=== PATIENT | male | born 1940 | race Caucasian/White ===

== ENCOUNTER 2017-05-30 12:22 | Observation (INO) | payer MEDICARE, OTHER ==
[2017-05-30] MEDS ORDERED: Aspirin 81 MG Tab.Chew PO ONE (12:54)
[2017-05-30] MEDS ORDERED: Ondansetron 4 MG/2 ML SDV IVPUSH ONE (12:55)
[2017-05-30] MEDS ORDERED: Sodium Chloride 0.9% 1,000 ML IV ONE (13:22)
[2017-05-30 13:38] LABS: CHLORIDE,CL 100 mmol/L (98-110); SODIUM,NA 136 mmol/L (136-146)
--- NOTE | 2017-05-30 14:09 | EDM.PDOC ---
ED HPI GENERAL MEDICAL PROBLEM - General Chief Complaint: Gastrointestinal Problem Stated Complaint: UNRESPONSIVE Time Seen by Provider: 05/30/17 14:09 Source of Information: Reports: Family. Denies: Patient History Limitations: Reports: No Limitations - History of Present Illness INITIAL COMMENTS - FREE TEXT/NARRATIVE: History of present illness: [A 76-year-old male brought in by family secondary to concerns of decreased level of consciousness. Patient able to interact and operate as a normal and patient does have an underlying diagnosis of Parkinson's but he does not seem to be his usual level of functioning. Patient seems to be somewhat decreased in activity and interaction as well as having sporadic bouts of low blood pressure. ] Review of systems: As per history of present illness and below otherwise all systems reviewed and negative. Past medical history: As per history of present illness and as reviewed below otherwise noncontributory. Surgical history: As per history of present illness and as reviewed below otherwise noncontributory. Social history: No reported history of drug or alcohol abuse. Family history: As per history of present illness and as reviewed below otherwise noncontributory. Physical exam: HEENT: Atraumatic, normocephalic, pupils reactive, negative for conjunctival pallor or scleral icterus, mucous membranes moist, throat clear, neck supple, nontender, trachea midline. Lungs: Dim throughout otherwise breath sounds equal bilaterally, chest nontender. Heart: S1S2, regular, negative for clicks, rubs, or JVD. Abdomen: Soft, nondistended, nontender. Negative for masses or hepatosplenomegaly. Negative for costovertebral tenderness. Pelvis: Stable nontender. Genitourinary: Deferred. Rectal: Deferred. Extremities: Atraumatic, negative for cords or calf pain. Neurovascular unremarkable. Neuro: Awake, alert, oriented, somewhat drowsy. Cranial nerves II through XII unremarkable. Cerebellum unremarkable. Motor and sensory unremarkable throughout. Exam nonfocal. Spoke with Dr. Ponce after results were available and orders for inpatient admission for right lower lobe pneumonia. Diagnostics: [CT head, CXR CBC, CMP] Therapeutics: [IV fluid, IV Levaquin] Impression: [Right lower lobe pneumonia] Plan: [Admit] Definitive disposition and diagnosis as appropriate pending reevaluation and review of above. - Related Data Allergies Allergy/AdvReac Type Severity Reaction Status Date / Time No Known Allergies Allergy Verified 05/30/17 12:26 Home Meds: Home Meds Carbidopa/Levodopa/Entacapone [Xofycrzhg-Ojorwlkn-Otkz 200 mg] 1 mg PO DAILY [History] Metoprolol Succinate 50 mg PO DAILY 05/30/17 [History] Past Medical History HEENT History: Reports: None Cardiovascular History: Reports: Hypertension Respiratory History: Reports: None Gastrointestinal History: Reports: None Genitourinary History: Reports: None Musculoskeletal History: Reports: None Neurological History: Reports: Parkinson's Psychiatric History: Reports: None Endocrine/Metabolic History: Reports: None Hematologic History: Reports: None Immunologic History: Reports: None Oncologic (Cancer) History: Reports: None Dermatologic History: Reports: None - Infectious Disease History Infectious Disease History: Reports: Chicken Pox, Measles, Mumps - Past Surgical History Head Surgeries/Procedures: Reports: None HEENT Surgical History: Reports: None Cardiovascular Surgical History: Reports: None Respiratory Surgical History: Reports: None GI Surgical History: Reports: None Male Surgical History: Reports: None Endocrine Surgical History: Reports: None Neurological Surgical History: Reports: None Musculoskeletal Surgical History: Reports: None Oncologic Surgical History: Reports: None Dermatological Surgical History: Reports: None Social & Family History - Family History Family Medical History: Noncontributory - Tobacco Use Smoking Status *Q: Never Smoker - Caffeine Use Caffeine Use: Reports: Coffee - Recreational Drug Use Recreational Drug Use: No ED ROS GENERAL - Review of Systems Review Of Systems: See Below (See history of present illness) ED EXAM, GENERAL - Physical Exam Exam: See Below (See history of present illness) Course - Vital Signs Last Recorded V/S: Last Vital Signs Temp 36.5 C 05/30/17 12:27 Pulse 79 05/30/17 12:27 Resp 14 05/30/17 12:27 BP 127/31 L 05/30/17 12:27 Pulse Ox 94 L 05/30/17 12:27 - Orders/Labs/Meds Orders: Active Orders 24 hr Category Date Time Status EKG Documentation Completion [RC] STAT Care 05/30/17 12:54 Active Chest 2V [CR] Stat Exams 05/30/17 12:54 Ordered AMYLASE [CHEM] Stat Lab 05/30/17 13:05 Received COMPREHENSIVE METABOLIC PN,CMP [CHEM] Stat Lab 05/30/17 13:05 Received LIPASE [CHEM] Stat Lab 05/30/17 13:05 Received TROPONIN I [CHEM] Stat Lab 05/30/17 13:05 Received UA W/MICROSCOPIC [URIN] Stat Lab 05/30/17 12:54 Uncollected Saline Lock Insert [OM.PC] Stat Oth 05/30/17 12:54 Ordered Labs: Laboratory Tests 05/30/17 Range/Units 13:05 WBC 7.87 (4.0-11.0) K/uL RBC 4.27 L (4.50-5.90) M/uL Hgb 13.3 (13.0-17.0) g/dL Hct 37.8 L (38.0-50.0) % MCV 88.5 (80.0-98.0) fL MCH 31.1 (27.0-32.0) pg MCHC 35.2 (31.0-37.0) g/dL RDW Std Deviation 42.7 (28.0-62.0) fl RDW Coeff of Sonya 13 (11.0-15.0) % Plt Count 175 (150-400) K/uL MPV 9.60 (7.40-12.00) fL Neut % (Auto) 88.0 H (48.0-80.0) % Lymph % (Auto) 7.6 L (16.0-40.0) % [place] % (Auto) 4.3 (0.0-15.0) % Eos % (Auto) 0.0 (0.0-7.0) % Baso % (Auto) 0.1 (0.0-1.5) % Neut # (Auto) 6.9 H (1.4-5.7) K/uL Lymph # (Auto) 0.6 (0.6-2.4) K/uL [place] # (Auto) 0.3 (0.0-0.8) K/uL Eos # (Auto) 0.0 (0.0-0.7) K/uL Baso # (Auto) 0.0 (0.0-0.1) K/uL Nucleated RBC % 0.0 /100WBC Nucleated RBCs # 0 K/uL Meds: Medications Discontinued Medications Generic Name Dose Route Start Last Admin Trade Name Freq PRN Reason Stop Dose Admin Aspirin 324 mg 05/30/17 12:54 Aspirin PO 05/30/17 12:55 ONETIME ONE Ondansetron HCl 8 mg 05/30/17 12:55 Zofran IVPUSH 05/30/17 12:56 ONETIME ONE Departure - Departure Time of Disposition: 14:14 Disposition: Admitted As Inpatient 66 Condition: Good Clinical Impression: Pneumonia - Discharge Information Referrals: Mehran Ornelas MD [Primary Care Provider] - - My Orders Last 24 Hours: My Active Orders 05/30/17 12:54 EKG Documentation Completion [RC] STAT Chest 2V [CR] Stat UA W/MICROSCOPIC [URIN] Stat Saline Lock Insert [OM.PC] Stat 05/30/17 13:05 AMYLASE [CHEM] Stat COMPREHENSIVE METABOLIC PN,CMP [CHEM] Stat LIPASE [CHEM] Stat TROPONIN I [CHEM] Stat - Assessment/Plan Last 24 Hours: My Active Orders 05/30/17 12:54 EKG Documentation Completion [RC] STAT Chest 2V [CR] Stat UA W/MICROSCOPIC [URIN] Stat Saline Lock Insert [OM.PC] Stat 05/30/17 13:05 AMYLASE [CHEM] Stat COMPREHENSIVE METABOLIC PN,CMP [CHEM] Stat LIPASE [CHEM] Stat TROPONIN I [CHEM] Stat
[2017-05-30] MEDS ORDERED: Levofloxacin/Dextrose 5%-Water 750 MG in Premix Bag 1 BAG IV ONE (14:13)
--- NOTE | 2017-05-30 16:17 | PCM.HP ---
H&P History of Present Illness - General Date of Service: 05/30/17 Admit Problem/Dx: Admission Diagnosis/Problem Admission Diagnosis/Problem Pneumonia - History of Present Illness Initial Comments - Free Text/Narative: He was seen in the ED today for feeling very weak. He denies cough. His states that his blood pressure was low at home. He was diagnosed with a probable right sided pneumonia by xray when he was in the ER and admission was recommended. no cough no fever no dyspnea - Related Data Allergies/Adverse Reactions: Allergies Allergy/AdvReac Type Severity Reaction Status Date / Time No Known Allergies Allergy Verified 05/30/17 12:26 Home Medications: Home Meds Carbidopa/Levodopa/Entacapone [Ujkqstuvl-Rahodlmg-Qzqe 200 mg] 1 mg PO DAILY [History] Metoprolol Succinate 50 mg PO DAILY 05/30/17 [History] Past Medical History HEENT History: Reports: Cataract Cardiovascular History: Reports: Hypertension Respiratory History: Reports: None Gastrointestinal History: Reports: GERD Genitourinary History: Reports: None Musculoskeletal History: Reports: None Neurological History: Reports: Parkinson's Psychiatric History: Reports: None Endocrine/Metabolic History: Reports: None Hematologic History: Reports: None Immunologic History: Reports: None Oncologic (Cancer) History: Reports: None Dermatologic History: Reports: None - Infectious Disease History Infectious Disease History: Reports: Chicken Pox, Measles, Mumps - Past Surgical History Head Surgeries/Procedures: Reports: None HEENT Surgical History: Reports: Cataract Surgery Cardiovascular Surgical History: Reports: None Respiratory Surgical History: Reports: None GI Surgical History: Reports: None Male Surgical History: Reports: None Endocrine Surgical History: Reports: None Neurological Surgical History: Reports: None Musculoskeletal Surgical History: Reports: None Oncologic Surgical History: Reports: None Dermatological Surgical History: Reports: None Social & Family History - Family History Family Medical History: Noncontributory - Tobacco Use Smoking Status *Q: Never Smoker Second Hand Smoke Exposure: No - Caffeine Use Caffeine Use: Reports: Coffee - Recreational Drug Use Recreational Drug Use: No H&P Review of Systems - Review of Systems: Review Of Systems: See Below General: Denies: Fever, Chills Pulmonary: Denies: Cough, Sputum Cardiovascular: Denies: Chest Pain, Palpitations Gastrointestinal: Reports: Nausea, Vomiting, Other (heart burn noted at home). Denies: Hematemesis, Hematochezia Exam - Exam Exam: See Below - Vital Signs Vital Signs: Last Vital Signs Temp 97.7 F 05/30/17 12:27 Pulse 79 05/30/17 12:27 Resp 14 05/30/17 12:27 BP 127/31 L 05/30/17 12:27 Pulse Ox 94 L 05/30/17 12:27 Weight: 80.6 kg - Exam General: Alert, Cooperative HEENT: Conjunctiva Clear Neck: Supple, Trachea Midline Lungs: Clear to Auscultation, Normal Respiratory Effort Cardiovascular: Regular Rate, Regular Rhythm GI/Abdominal Exam: Soft, Non-Tender Rectal (Males) Exam: Deferred Extremities: No Pedal Edema Psychiatric: Normal Mood. No: Agitated - Patient Data Result Diagrams: 05/30/17 13:05 05/30/17 13:05 *Q Meaningful Use (ADM) - VTE *Q VTE Criteria *Q: - Stroke *Q Stroke Criteria *Q: - AMI *Q AMI Criteria *Q: - Problem List (1) Parkinsons disease SNOMED Code(s): 48044708 ICD Code: G20 - PARKINSON'S DISEASE Status: Acute Current Visit: Yes (2) GERD (gastroesophageal reflux disease) SNOMED Code(s): 783575136 ICD Code: K21.9 - GASTRO-ESOPHAGEAL REFLUX DISEASE WITHOUT ESOPHAGITIS Status: Acute Current Visit: Yes (3) Pneumonia SNOMED Code(s): 057432999 ICD Code: J18.9 - PNEUMONIA, UNSPECIFIED ORGANISM Status: Acute Current Visit: Yes Problem List Initiated/Reviewed/Updated: Yes Orders Last 24hrs: Active Orders 24 hr Category Date Time Status Carbidopa/Levodopa/Entacapone [Cmwisozfd-Kfwlbuqk-Njsl Med 05/31/17 09:00 Ordered 200 mg] 1 mg PO DAILY Metoprolol Succinate [Toprol XL] Med 05/31/17 09:00 Ordered 50 mg PO DAILY Medication Orders Metoprolol Succinate (Toprol Xl) 50 mg PO DAILY [facility] Non-Formulary Medication (Carbidopa/Levodopa/Entacapone [Carbidopa-Levodopa- Enta 200 Mg]) 1 mg PO DAILY [facility] Assessment/Plan Comment:: admit ; see orders. Diego Pandey MD
[2017-05-30] MEDS ORDERED: Acetaminophen 325 MG Tab PO PRN (16:18)
[2017-05-30] MEDS: Pantoprazole 40 MG Tab.CR PO SCH ×2 (17:00→18:50)
[2017-05-30] MEDS: LEVODOPA PO SCH (21:00)
[2017-05-30] MEDS: CARBIDOPA PO SCH (21:00)
[2017-05-30] MEDS: Metoprolol Succinate 50 MG Tab.ER PO SCH (23:12)
[2017-05-31] MEDS: Pantoprazole 40 MG Tab.CR PO SCH ×2 (07:59→17:28)
[2017-05-31] MEDS ORDERED: [UNRECOGNIZED DRUG - OTHER] PO SCH (09:00)
[2017-05-31] MEDS ORDERED: LEVODOPA PO SCH (09:00)
[2017-05-31] MEDS ORDERED: CARBIDOPA PO SCH (09:00)
[2017-05-31] MEDS ORDERED: ENTACAPONE PO SCH (09:00)
[2017-05-31] MEDS: Enoxaparin 40 MG/0.4 ML Syringe SUBCUT SCH (09:42)
[2017-05-31] MEDS: CARBIDOPA PO SCH ×2 (09:42→20:59)
[2017-05-31] MEDS: LEVODOPA PO SCH ×2 (09:42→20:59)
--- NOTE | 2017-05-31 13:27 | PCM.PN ---
- General Info Date of Service: 05/31/17 Subjective Update: He feels better and wants to go home. - Patient Data Vitals - Most Recent: Last Vital Signs Temp 98.0 F 05/31/17 09:00 Pulse 78 05/31/17 09:00 Resp 18 05/31/17 10:15 BP 141/66 H 05/31/17 10:15 Pulse Ox 95 05/31/17 10:15 Weight - Most Recent: 80.6 kg I&O - Last 24 Hours: Intake & Output 05/30/17 05/31/17 05/31/17 22:59 06:59 14:59 Intake Total 150 100 Output Total 400 Balance 150 -300 Lab Results Last 24 Hours: Laboratory Results - last 24 hr 05/30/17 Range/Units 22:30 Urine Color DARK YELLOW Urine Appearance SLT CLOUDY Urine pH 5.0 (5.0-8.0) Ur Specific [place] 1.025 (1.001-1.035) Urine Protein TRACE (NEGATIVE) mg/dL Urine Glucose (UA) NEGATIVE (NEGATIVE) mg/dL Urine Ketones TRACE H (NEGATIVE) mg/dL Urine Occult Blood NEGATIVE (NEGATIVE) Urine Nitrite NEGATIVE (NEGATIVE) Urine Bilirubin SMALL H (NEGATIVE) Urine Ictotest NEGATIVE Urine Urobilinogen 0.2 (<2.0) EU/dL Ur Leukocyte Esterase TRACE (NEGATIVE) Urine RBC 0-3 (0-2/HPF) Urine WBC 6-12 (0-5/HPF) Ur Epithelial Cells OCCASIONAL (NONE-FEW) Ur Renal Epithelial Cell RARE Calcium Oxalate Crystal RARE (NEGATIVE) Amorphous Sediment LIGHT (NEGATIVE) Urine Bacteria FEW (NEGATIVE) Fine Granular Casts 0-2 (NEGATIVE) Med Orders - Current: Current Medications Acetaminophen (Tylenol) 650 mg PO Q4H PRN PRN Reason: Pain (Mild 1-3)/fever Enoxaparin Sodium (Lovenox) 40 mg SUBCUT DAILY [facility] Last Admin: 05/31/17 09:42 Dose: 40 mg Levofloxacin/Dextrose 750 mg/ (Premix) 150 mls @ 100 mls/hr IV DAILY ONE Stop: 05/31/17 16:29 Metoprolol Succinate (Toprol Xl) 50 mg PO BEDTIME [facility] Last Admin: 05/30/17 23:12 Dose: Not Given Pantoprazole Sodium (Protonix) 40 mg PO BIDAC [facility] Last Admin: 05/31/17 07:59 Dose: 40 mg Carbidopa/Levodopa (Er 50-200) 1 each PO BID [facility] Last Admin: 05/31/17 09:42 Dose: 1 each Discontinued Medications Aspirin (Aspirin) 324 mg PO ONETIME ONE Stop: 05/30/17 12:55 Last Admin: 05/30/17 13:25 Dose: 324 mg Sodium Chloride (Normal Saline) 1,000 mls @ 999 mls/hr IV STAT ONE Stop: 05/30/17 14:22 Last Admin: 05/30/17 13:25 Dose: 999 mls/hr Levofloxacin/Dextrose 750 mg/ (Premix) 150 mls @ 100 mls/hr IV ONETIME ONE Stop: 05/30/17 15:42 Last Admin: 05/30/17 14:22 Dose: 100 mls/hr Non-Formulary Medication (Carbidopa/Levodopa/Entacapone [Carbidopa-Levodopa- Enta 200 Mg]) 1 mg PO DAILY [facility] Ondansetron HCl (Zofran) 8 mg IVPUSH ONETIME ONE Stop: 05/30/17 12:56 Last Admin: 05/30/17 13:25 Dose: 8 mg - Exam General: Alert, Cooperative Neck: Supple, Trachea Midline Lungs: Clear to Auscultation (except subtle rales right lateral chest), Normal Respiratory Effort Cardiovascular: Regular Rate, Regular Rhythm Psy/Mental Status: Alert, Normal Affect (ambulating well. ), Normal Mood - Problem List & Annotations (1) Parkinsons disease SNOMED Code(s): 73864640 Code(s): G20 - PARKINSON'S DISEASE Status: Acute Current Visit: Yes (2) GERD (gastroesophageal reflux disease) SNOMED Code(s): 091402143 Code(s): K21.9 - GASTRO-ESOPHAGEAL REFLUX DISEASE WITHOUT ESOPHAGITIS Status: Acute Current Visit: Yes (3) Pneumonia SNOMED Code(s): 708657993 Code(s): J18.9 - PNEUMONIA, UNSPECIFIED ORGANISM Status: Acute Current Visit: Yes (4) UTI (urinary tract infection) SNOMED Code(s): 94915586 Code(s): N39.0 - URINARY TRACT INFECTION, SITE NOT SPECIFIED Status: Acute Current Visit: Yes - Problem List Review Problem List Initiated/Reviewed/Updated: Yes - My Orders Last 24 Hours: My Active Orders 05/30/17 16:18 Oxygen Therapy [RC] PRN Vital Signs [RC] Q4H UA W/O MICROSCOPIC [URIN] Stat Acetaminophen [Tylenol] 650 mg PO Q4H PRN Resuscitation Status Routine 05/30/17 16:30 Pantoprazole [ProTONIX] 40 mg PO BIDAC 05/30/17 21:00 Metoprolol Succinate [Toprol XL] 50 mg PO BEDTIME Patient's Own Medication [Ptom] 1 each PO BID 05/30/17 Dinner Regular Diet [DIET] 05/31/17 09:00 Enoxaparin [Lovenox] 40 mg SUBCUT DAILY 05/31/17 13:23 CULTURE URINE [RM] Stat 05/31/17 15:00 Levofloxacin/Dextrose 5%-Water [Levaquin in D5W 750 MG/150 ML] 750 mg Premix Bag 1 bag IV DAILY 06/01/17 05:11 BASIC METABOLIC PANEL,BMP [CHEM] AM CBC WITH AUTO DIFF [HEME] AM 06/02/17 05:11 BASIC METABOLIC PANEL,BMP [CHEM] AM CBC WITH AUTO DIFF [HEME] AM - Plan Plan:: admit ; see orders. Diego Pandey MD 05/31/2017 urine culture lab in am nurse reports that his oxygen saturation drops to 85% on room air with walking. anticipated discharge tomorrow or Thursday if oxygenation improved. He reportedly had a hypotensive unresponsive episode at home before coming to the emergency room. Diego Pandey MD
[2017-05-31] MEDS ORDERED: Levofloxacin/Dextrose 5%-Water 750 MG in Premix Bag 1 BAG IV ONE (15:00)
[2017-05-31] MEDS: Metoprolol Succinate 50 MG Tab.ER PO SCH (20:59)
[2017-06-01] MEDS: Pantoprazole 40 MG Tab.CR PO SCH (06:49)
[2017-06-01 08:56] VITALS: BP 129/62
[2017-06-01] MEDS: CARBIDOPA PO SCH (09:21)
[2017-06-01] MEDS: Enoxaparin 40 MG/0.4 ML Syringe SUBCUT SCH (09:21)
[2017-06-01] MEDS: LEVODOPA PO SCH (09:21)
--- NOTE | 2017-06-01 11:57 | PCM.DCSUM1 ---
Discharge Summary - Hospital Course Brief History: This 76 claire old male with pmh of HTN and parkinson's presented to the ED with complaints of feeling weak. He denied fever, cough, dyspnea or SOB. noted low blood pressure at home during this time as well. In the ED labwork WNL. UA negative. CXR revealed possible new right lower lobe pneumonia. He was admitted for community acquired pneumonia. PCP, Dr Ornelas. - Discharge Data Discharge Date: 06/01/17 Discharge Disposition: Home, Self-Care 01 Condition: Stable - Patient Instructions Diet: Heart Healthy Diet Activity: As Tolerated Showering/Bathing: May Shower Notify Provider of: Fever, Increased Pain, Swelling and Redness, Drainage, Nausea and/or Vomiting Other/Special Instructions: Monitor blood pressure before taking metoprolol Hold if 90-100/50-60s and take medication is BP is 120/60 or higher. Keep log and bring to follow up appointment. - Discharge Plan Prescriptions/Med Rec: Levofloxacin [Levaquin] 750 mg PO DAILY #5 tablet Sennosides/Docusate Sodium [Senna S Tablet] 1 each PO DAILY PRN #60 tablet PRN Reason: Constipation Home Medications: Home Meds Carbidopa/Levodopa/Entacapone [Mkaslakgq-Xctwyfie-Hdel 200 mg] 1 mg PO DAILY [History] Metoprolol Succinate 50 mg PO DAILY 05/30/17 [History] Levofloxacin [Levaquin] 750 mg PO DAILY #5 tablet 06/01/17 [Rx] Sennosides/Docusate Sodium [Senna S Tablet] 1 each PO DAILY PRN #60 tablet 06/01 [Rx] Patient Handouts: Shortness of Breath, Zxuk-jt-Ovaw, Levofloxacin tablets, Docusate capsules Referrals: Mehran Ornelas MD [Primary Care Provider] - 06/08/17 10:00 am (follow up in 1 week) - Discharge Summary/Plan Comment DC Time >30 min.: No Discharge Summary/Plan Comment: Discharge diagnoses: Community acquired pneumonia, RLL HTN Parkinson's disease Sagar was admitted and treated with Levaquin for CAP. BP was noted to be initially low in the ED and and given some fluids. Since then BP has remained WNL and did elevated to 170 SBP, Metoprolol was restarted and BP has been 120- 130s SBP. He is very eager for discharge today. He was noted to be sating high 80s with ambulation yesterday and was kept another day. Today with ambulation on RA he was 90-94%. He will be discharged home today. He will be sent with Levaquin 750 mg daily for 5 more days and to follow up with Dr. Ornelas. He was asked to keep a log of his BP at home and bring them to his appointment. He is to return to ED or clinic if concerns should arise. He is to continue Metoprolol and Sinemet as previously prescribed. - General Info Date of Service: 06/01/17 Admission Dx/Problem (Free Text: Admission Diagnosis/Problem Admission Diagnosis/Problem Pneumonia Subjective Update: Sitting on edge of bed visiting with family. No complaints, no SOB or cough. Up ambulating well. No dizziness or lightheadedness with ambulation. Functional Status: Reports: Pain Controlled, Tolerating Diet, Ambulating, Urinating - Review of Systems General: Reports: No Symptoms. Denies: Fever Pulmonary: Reports: No Symptoms. Denies: Shortness of Breath, Cough, Sputum Cardiovascular: Reports: No Symptoms. Denies: Chest Pain, Palpitations, Dyspnea on Exertion, Edema, Lightheadedness Gastrointestinal: Reports: No Symptoms. Denies: Abdominal Pain, Nausea, Vomiting Genitourinary: Reports: No Symptoms. Denies: Dysuria, Frequency, Burning Psychiatric: Reports: No Symptoms. Denies: Confusion - Patient Data Vitals - Most Recent: Last Vital Signs Temp 97.4 F 06/01/17 08:00 Pulse 68 06/01/17 08:00 Resp 18 06/01/17 08:00 BP 129/62 06/01/17 08:00 Pulse Ox 95 06/01/17 08:00 Weight - Most Recent: 81.5 kg I&O - Last 24 hours: Intake & Output 05/31/17 06/01/17 06/01/17 22:59 06:59 14:59 Intake Total 1030 900 Output Total 925 Balance 1030 -25 Lab Results - Last 24 hrs: Laboratory Results - last 24 hr 06/01/17 06/01/17 Range/Units 05:45 05:45 WBC 5.60 (4.0-11.0) K/uL RBC 3.58 L (4.50-5.90) M/uL Hgb 10.9 L (13.0-17.0) g/dL Hct 32.1 L (38.0-50.0) % MCV 89.7 (80.0-98.0) fL MCH 30.4 (27.0-32.0) pg MCHC 34.0 (31.0-37.0) g/dL RDW Std Deviation 42.6 (28.0-62.0) fl RDW Coeff of Sonya 13 (11.0-15.0) % Plt Count 172 (150-400) K/uL MPV 9.30 (7.40-12.00) fL Neut % (Auto) 65.3 (48.0-80.0) % Lymph % (Auto) 25.9 (16.0-40.0) % [place] % (Auto) 7.3 (0.0-15.0) % Eos % (Auto) 1.3 (0.0-7.0) % Baso % (Auto) 0.2 (0.0-1.5) % Neut # (Auto) 3.7 (1.4-5.7) K/uL Lymph # (Auto) 1.5 (0.6-2.4) K/uL [place] # (Auto) 0.4 (0.0-0.8) K/uL Eos # (Auto) 0.1 (0.0-0.7) K/uL Baso # (Auto) 0.0 (0.0-0.1) K/uL Nucleated RBC % 0.0 /100WBC Nucleated RBCs # 0 K/uL Sodium 134 L (136-146) mmol/L Potassium 4.3 (3.5-5.1) mmol/L Chloride 102 (98-110) mmol/L Carbon Dioxide 22 (21-31) mmol/L BUN 26 H (6.0-23.0) mg/dL Creatinine 1.5 (0.6-1.5) mg/dL Est Cr Clr Drug Dosing 45.99 mL/min Estimated GFR (MDRD) 45.5 ml/min Glucose 92 (60-110) mg/dL Calcium 8.9 (8.8-10.8) mg/dL Med Orders - Current: Current Medications Acetaminophen (Tylenol) 650 mg PO Q4H PRN PRN Reason: Pain (Mild 1-3)/fever Enoxaparin Sodium (Lovenox) 40 mg SUBCUT DAILY [facility] Last Admin: 06/01/17 09:21 Dose: 40 mg Levofloxacin/Dextrose 750 mg/ (Premix) 150 mls @ 100 mls/hr IV Q48H [facility] Metoprolol Succinate (Toprol Xl) 50 mg PO BEDTIME [facility] Last Admin: 05/31/17 20:59 Dose: 50 mg Pantoprazole Sodium (Protonix) 40 mg PO BIDAC [facility] Last Admin: 06/01/17 06:49 Dose: 40 mg Carbidopa/Levodopa (Er 50-200) 1 each PO BID [facility] Last Admin: 06/01/17 09:21 Dose: 1 each Discontinued Medications Aspirin (Aspirin) 324 mg PO ONETIME ONE Stop: 05/30/17 12:55 Last Admin: 05/30/17 13:25 Dose: 324 mg Sodium Chloride (Normal Saline) 1,000 mls @ 999 mls/hr IV STAT ONE Stop: 05/30/17 14:22 Last Admin: 05/30/17 13:25 Dose: 999 mls/hr Levofloxacin/Dextrose 750 mg/ (Premix) 150 mls @ 100 mls/hr IV ONETIME ONE Stop: 05/30/17 15:42 Last Admin: 05/30/17 14:22 Dose: 100 mls/hr Levofloxacin/Dextrose 750 mg/ (Premix) 150 mls @ 100 mls/hr IV DAILY ONE Stop: 05/31/17 16:29 Last Admin: 05/31/17 15:45 Dose: 100 mls/hr Levofloxacin/Dextrose 750 mg/ (Premix) 150 mls @ 100 mls/hr IV Q24H [facility] Non-Formulary Medication (Carbidopa/Levodopa/Entacapone [Carbidopa-Levodopa- Enta 200 Mg]) 1 mg PO DAILY [facility] Ondansetron HCl (Zofran) 8 mg IVPUSH ONETIME ONE Stop: 05/30/17 12:56 Last Admin: 05/30/17 13:25 Dose: 8 mg - Exam Quality Assessment: Reports: DVT Prophylaxis. Denies: Supplemental Oxygen General: Reports: Alert, Oriented, Cooperative Neck: Reports: Supple Lungs: Reports: Normal Respiratory Effort, Rales (fine rales to R LL). Denies: Wheezing Cardiovascular: Reports: Regular Rate, Regular Rhythm, No Murmurs Extremities: Normal Inspection, Normal Range of Motion, Non-Tender, No Pedal Edema, Normal Capillary Refill Neurological: Reports: No New Focal Deficit Psy/Mental Status: Reports: Alert, Normal Affect, Normal Mood *Q Meaningful Use (DIS) - VTE *Q VTE Criteria *Q: - Stroke *Q Stroke Criteria *Q: - AMI *Q AMI Criteria *Q:
--- NOTE | 2017-06-01 13:28 | CT ---
EXAM DATE: 05/30/17 PATIENT'S AGE: 76 Patient: ANA LEE Facility: [facility], [place], [place] : 1940 Study: CT Head [id number] 1:47:41 PM Ordering Physician: ADALGISA Final Report: INDICATION: Dizziness. Technique: Noncontrast head CT scan. Comparison: No comparison Studies are available. Findings: Axial noncontrast images through the brain parenchyma demonstrates no acute intracranial hemorrhage or mass. No midline shift. No abnormal extra-axial air or fluid collections. There is mild mucosal thickening of the left maxillary sinus. Mucosal thickening in the ethmoid air cells. Remainder of the paranasal sinuses, mastoid air cells skull scalp appear unremarkable. Impression: 1. No acute intracranial hemorrhage or mass. Please note that all CT scans at this facility use dose modulation, iterative reconstruction, and/or weight-based dosing when appropriate to reduce radiation dose to as low as reasonably achievable. Dictated by Zoë Canales MD @ May 30 2017 1:57PM (Electronic Signature) Report Signed by Proxy. MTDD
--- NOTE | 2017-06-01 13:29 | CR ---
EXAM DATE: 05/30/17 PATIENT'S AGE: 76 Patient: ANA LEE Facility: [place], [place] Site . Site : 1940 Study: XRay Chest [id number] 1:49:55 PM Ordering Physician: Doctor Hayes Final Report: HISTORY: Shortness of breath and unresponsive. Findings: Two views of the chest or provided. Comparison is made to previous study dated 11/05/2015. There is new patchy opacity seen at the right lung base suspicious for pneumonia. The upper portion of the right lung and left lung are clear. There is no evidence for pneumothorax. Cardiac silhouette size is within normal limits. Impression: Evidence for new possible pneumonia in the right lower lung. Dictated by Mani Eng MD @ May 30 2017 2:01PM (Electronic Signature) Report Signed by Proxy. LISBETH
[2017-06-01] MEDS ORDERED: Levofloxacin/Dextrose 5%-Water 750 MG in Premix Bag 1 BAG IV SCH (15:00)
[2017-06-03] MEDS ORDERED: Levofloxacin/Dextrose 5%-Water 750 MG in Premix Bag 1 BAG IV SCH (15:00)
== END 2017-06-01 12:48 | disposition home or self-care (01) ==
LOC: MW.ED 12:22 → INTOOBSV 14:17 → MW.MS 14:17
PROVIDERS: ADMIT Family Medicine; ATTEND Family Medicine
DX: J18.9 Pneumonia, unspecified organism (principal); I10 Essential (primary) hypertension; G20 Parkinson's disease; K21.9 Gastro-esophageal reflux disease without esophagitis; N39.0 Urinary tract infection, site not specified; Z79.899 Other long term (current) drug therapy; Z98.49 Cataract extraction status, unspecified eye; Z98.890 Other specified postprocedural states
CPT/HCPCS: 36415; 70450; 71020; 80048; 80053; 81001; 82150; 83690; 84484; 85025; 87086; 93005; 96361; 96365; 96375; 99285; A9270; J1650; J1956; J2405; J7040; 96366; 96372; G0378

== ENCOUNTER 2017-11-20 10:41 | Emergency (ER) | payer MEDICARE, OTHER ==
--- NOTE | 2017-11-20 10:48 | EDM.PDOC ---
ED HPI GENERAL MEDICAL PROBLEM - General Chief Complaint: Syncope Stated Complaint: SYNCOPE Time Seen by Provider: 11/20/17 10:47 Source of Information: Reports: Patient, Provider, RN - History of Present Illness INITIAL COMMENTS - FREE TEXT/NARRATIVE: HISTORY AND PHYSICAL: History of present illness: [Patient was over at Dr. Ornelas's office today getting as ears flushed essentially a cerumen removal]: Getting his ear flushed with water apparently he did have essentially a vasovagal response he was sent over here for workup. He arrives by wheelchair alert interactive talking in full sentences no motor weakness no apparent distress whatsoever he transfers from the wheelchair to the bed on his own accord Denies fever nausea vomiting diarrhea constipation chest pain shortness breath headache dizziness palpitation no bowel or urine symptoms Review of systems: As per history of present illness and below otherwise all systems reviewed and negative. Past medical history: As per history of present illness and as reviewed below otherwise noncontributory. Surgical history: As per history of present illness and as reviewed below otherwise noncontributory. Social history: No reported history of drug or alcohol abuse. Family history: As per history of present illness and as reviewed below otherwise noncontributory. Physical exam: HEENT: Atraumatic, normocephalic, pupils reactive, negative for conjunctival pallor or scleral icterus, mucous membranes moist, throat clear, neck supple, nontender, trachea midline. Lungs: Clear to auscultation, breath sounds equal bilaterally, chest nontender. Heart: S1S2, regular, negative for clicks, rubs, or JVD. Abdomen: Soft, nondistended, nontender. Negative for masses or hepatosplenomegaly. Negative for costovertebral tenderness. Pelvis: Stable nontender. Genitourinary: Deferred. Rectal: Deferred. Extremities: Atraumatic, negative for cords or calf pain. Neurovascular unremarkable. Neuro: Awake, alert, oriented. Cranial nerves II through XII unremarkable. Cerebellum unremarkable. Motor and sensory unremarkable throughout. Exam nonfocal. Diagnostics: [CBC CMP troponin UA Orthostatic vitals EKG Chest [address] no contrast ] Therapeutics: [] Impression: [ vasovagal reaction ] Definitive disposition and diagnosis as appropriate pending reevaluation and review of above. - Related Data Allergies Allergy/AdvReac Type Severity Reaction Status Date / Time No Known Allergies Allergy Verified 11/20/17 10:45 Home Meds: Home Meds Carbidopa/Levodopa/Entacapone [Ywnhexsmh-Jnianqzr-Bxue 200 mg] 1 mg PO DAILY [History] Metoprolol Succinate 50 mg PO DAILY 05/30/17 [History] Past Medical History HEENT History: Reports: Cataract Cardiovascular History: Reports: Hypertension Respiratory History: Reports: None Gastrointestinal History: Reports: GERD Genitourinary History: Reports: None Musculoskeletal History: Reports: None Neurological History: Reports: Parkinson's Psychiatric History: Reports: None Endocrine/Metabolic History: Reports: None Hematologic History: Reports: None Immunologic History: Reports: None Oncologic (Cancer) History: Reports: None Dermatologic History: Reports: None - Infectious Disease History Infectious Disease History: Reports: Chicken Pox, Measles, Mumps - Past Surgical History Head Surgeries/Procedures: Reports: None HEENT Surgical History: Reports: Cataract Surgery Cardiovascular Surgical History: Reports: None Respiratory Surgical History: Reports: None GI Surgical History: Reports: None Male Surgical History: Reports: None Endocrine Surgical History: Reports: None Neurological Surgical History: Reports: None Musculoskeletal Surgical History: Reports: None Oncologic Surgical History: Reports: None Dermatological Surgical History: Reports: None Social & Family History - Family History Family Medical History: Noncontributory - Tobacco Use Smoking Status *Q: Never Smoker Second Hand Smoke Exposure: No - Caffeine Use Caffeine Use: Reports: Coffee - Recreational Drug Use Recreational Drug Use: No ED ROS GENERAL - Review of Systems Review Of Systems: ROS reveals no pertinent complaints other than HPI. ED EXAM, GENERAL - Physical Exam Exam: See Below Course - Vital Signs Last Recorded V/S: Last Vital Signs Temp 97.7 F 11/20/17 10:46 Pulse 68 11/20/17 12:06 Resp 18 11/20/17 12:06 BP 176/81 H 11/20/17 12:06 Pulse Ox 98 11/20/17 12:06 Orthostatic Blood Pressure [ 149/76 Standing] Orthostatic Blood Pressure [ 155/64 Sitting] Orthostatic Blood Pressure [ 146/74 Supine] - Orders/Labs/Meds Orders: Active Orders 24 hr Category Date Time Status EKG Documentation Completion [RC] STAT Care 11/20/17 10:44 Active Orthostatic Vital Signs [RC] ASDIRECTED Care 11/20/17 10:46 Active UA W/MICROSCOPIC [URIN] Stat Lab 11/20/17 11:00 Ordered Labs: Laboratory Tests 11/20/17 11/20/17 11/20/17 Range/Units 11:00 11:10 11:10 WBC 7.23 (4.0-11.0) K/uL RBC 4.19 L (4.50-5.90) M/uL Hgb 12.9 L (13.0-17.0) g/dL Hct 37.6 L (38.0-50.0) % MCV 89.7 (80.0-98.0) fL MCH 30.8 (27.0-32.0) pg MCHC 34.3 (31.0-37.0) g/dL RDW Std Deviation 42.3 (28.0-62.0) fl RDW Coeff of Sonya 13 (11.0-15.0) % Plt Count 191 (150-400) K/uL MPV 9.50 (7.40-12.00) fL Neut % (Auto) 77.3 (48.0-80.0) % Lymph % (Auto) 17.2 (16.0-40.0) % Stephenson % (Auto) 4.8 (0.0-15.0) % Eos % (Auto) 0.6 (0.0-7.0) % Baso % (Auto) 0.1 (0.0-1.5) % Neut # (Auto) 5.6 (1.4-5.7) K/uL Lymph # (Auto) 1.2 (0.6-2.4) K/uL Stephenson # (Auto) 0.4 (0.0-0.8) K/uL Eos # (Auto) 0.0 (0.0-0.7) K/uL Baso # (Auto) 0.0 (0.0-0.1) K/uL Nucleated RBC % 0.0 /100WBC Nucleated RBCs # 0 K/uL Sodium 135 L (136-148) mmol/L Potassium 4.8 (3.5-5.1) mmol/L Chloride 101 (98-107) mmol/L Carbon Dioxide 28.2 (21.0-32.0) mmol/L BUN 24 H (7.0-18.0) mg/dL Creatinine 1.4 H (0.8-1.3) mg/dL Est Cr Clr Drug Dosing 48.50 mL/min Estimated GFR (MDRD) 49.1 ml/min Glucose 121 H (74-106) mg/dL Calcium 9.4 (8.5-10.1) mg/dL Total Bilirubin 0.5 (0.2-1.0) mg/dL AST 12 L (15-37) IU/L ALT 4 L (14-63) IU/L Alkaline Phosphatase 54 (46-116) U/L Troponin I < 0.050 (0.000-0.056) ng/mL Total Protein 8.9 H (6.4-8.2) g/dL Albumin 3.3 L (3.4-5.0) g/dL Globulin 5.6 H (2.0-3.5) g/dL Albumin/Globulin Ratio 0.6 L (1.3-2.8) Urine Color YELLOW Urine Appearance CLEAR Urine pH 6.0 (5.0-8.0) Ur Specific Black 1.020 (1.001-1.035) Urine Protein NEGATIVE (NEGATIVE) mg/dL Urine Glucose (UA) NEGATIVE (NEGATIVE) mg/dL Urine Ketones NEGATIVE (NEGATIVE) mg/dL Urine Occult Blood NEGATIVE (NEGATIVE) Urine Nitrite NEGATIVE (NEGATIVE) Urine Bilirubin NEGATIVE (NEGATIVE) Urine Urobilinogen 0.2 (<2.0) EU/dL Ur Leukocyte Esterase NEGATIVE (NEGATIVE) Urine RBC 0-2 (0-2/HPF) Urine WBC 0-2 (0-5/HPF) Ur Epithelial Cells RARE (NONE-FEW) Urine Bacteria RARE (NEGATIVE) Departure - Departure Time of Disposition: 12:36 Disposition: Home, Self-Care 01 Condition: Good Clinical Impression: Vasovagal reaction - Discharge Information Forms: ED Department Discharge Additional Instructions: The following information is given to patients seen in the emergency department who are being discharged to home. This information is to outline your options for follow-up care. We provide all patients seen in our emergency department with a follow-up referral. The need for follow-up, as well as the timing and circumstances, are variable depending upon the specifics of your emergency department visit. If you don't have a primary care physician on staff, we will provide you with a referral. We always advise you to contact your personal physician following an emergency department visit to inform them of the circumstance of the visit and for follow-up with them and/or the need for any referrals to a consulting specialist. The emergency department will also refer you to a specialist when appropriate. This referral assures that you have the opportunity for follow-up care with a specialist. All of these measure are taken in an effort to provide you with optimal care, which includes your follow-up. Under all circumstances we always encourage you to contact your private physician who remains a resource for coordinating your care. When calling for follow-up care, please make the office aware that this follow-up is from your recent emergency room visit. If for any reason you are refused follow-up, please contact the [facility] emergency department at and asked to speak to the emergency department charge nurse. - My Orders Last 24 Hours: My Active Orders 11/20/17 10:44 EKG Documentation Completion [RC] STAT 11/20/17 10:46 Orthostatic Vital Signs [RC] ASDIRECTED 11/20/17 11:00 UA W/MICROSCOPIC [URIN] Stat - Assessment/Plan Last 24 Hours: My Active Orders 11/20/17 10:44 EKG Documentation Completion [RC] STAT 11/20/17 10:46 Orthostatic Vital Signs [RC] ASDIRECTED 11/20/17 11:00 UA W/MICROSCOPIC [URIN] Stat
[2017-11-20 11:47] LABS: CHLORIDE,CL 101 mmol/L (98-107); SODIUM,NA 135 mmol/L (136-148)
--- NOTE | 2017-11-20 12:08 | CR ---
EXAMINATION: PA chest radiograph. HISTORY: Syncope. FINDINGS: The trachea is midline. Dextropositioning of the heart. The cardiomediastinal silhouette is within no rmal limits. No pulmonary infiltrates, effusions or pneumothorax. Mild chronic interstitial prominenc e. Osseous structures appear unremarkable. IMPRESSION: Chronic interstitial prominence and likely scarring without an acute cardiopulmonary finding.
--- NOTE | 2017-11-20 12:29 | CT ---
EXAMINATION: Non contrast CT head. Coronal and sagittal reformats. HISTORY: Syncope FINDINGS: No evidence of intra or extra axial hemorrhage, mass, midline shift, hydrocephalus or edema. Modera te periventricular and subcortical white matter hypodensities noted. No hypoattenuation changes in the major vascular territories to suggest acute infarct. No abnormal intracranial calcifications are detected. No evidence of substantial vascular calcificat ions. Moderate leftward deviation of the nasal septum. Paranasal sinuses and mastoid air cells are well aerated without substantial findings. Orbits and gl obes are symmetric. Pituitary fossa appears unremarkable. Calvarium is intact. No evidence of skull fracture. IMPRESSION: 1. No acute intracranial findings. 2. Moderate small vessel ischemic changes.
[2017-11-20 14:00] VITALS: BP 131/69
== END 2017-11-20 13:14 | disposition home or self-care (01) ==
LOC: MW.ED 10:41
DX: R55 Syncope and collapse (principal); I10 Essential (primary) hypertension; Z79.899 Other long term (current) drug therapy
CPT/HCPCS: 36415; 70450; 70450-26; 71045; 71045-26; 80053; 81001; 84484; 85025; 99285-25

== ENCOUNTER 2017-12-23 12:18 | Emergency (ER) | payer MEDICARE, OTHER ==
[2017-12-23] MEDS ORDERED: Sodium Chloride 0.9% 1,000 ML IV ONE (12:20)
--- NOTE | 2017-12-23 12:41 | EDM.PDOC ---
ED HPI GENERAL MEDICAL PROBLEM - General Chief Complaint: General Stated Complaint: UNK Time Seen by Provider: 12/23/17 12:24 Source of Information: Reports: Patient History Limitations: Reports: No Limitations - History of Present Illness INITIAL COMMENTS - FREE TEXT/NARRATIVE: HISTORY AND PHYSICAL: History of present illness: Patient is a 77-year-old male who is brought to the emergency room today with complaints of diaphoresis, syncope and feeling unwell. Patient was on his way home from [facility], as he was picking up medications for treatment of newly diagnosed shingles. While at [facility] the patient had passed out. Daughter was able to get him into the vehicle stated to "go home". Patient took a drink of water and was unable to swallow and daughter noted he was drooling out the side of his mouth. At this point she decided he need to bee seen in the emergency department. They noted EMS in the parking lot/ambulance bay, and requested assistance bringing the patient into the emergency room as he was too weak to get out of the car. Upon arrival the patient's blood pressure was 70's/30's and he did appear pale and diaphoretic. He denies any fever, chills, chest pain, SOB, headache or change in vision. Denies any abdominal pain, nausea, vomiting, diarrhea or constipation. Patient has a past medical history of pneumonia, Parkinson's disease, GERD and UTI. Review of systems: As per history of present illness and below otherwise all systems reviewed and negative. Past medical history: As per history of present illness and as reviewed below otherwise noncontributory. Surgical history: As per history of present illness and as reviewed below otherwise noncontributory. Social history: No reported history of drug or alcohol abuse. Family history: As per history of present illness and as reviewed below otherwise noncontributory. Physical exam: General: Well developed and well nourished 77 year old male. Alert but slow to respond. Nontoxic appearing and in no acute distress. HEENT: Atraumatic, normocephalic, pupils equal and reactive bilaterally, negative for conjunctival pallor or scleral icterus, mucous membranes moist, throat clear, neck supple, nontender, trachea midline. No drooling or trismus noted. No meningeal signs Lungs: Clear to auscultation, breath sounds equal bilaterally, chest nontender. Heart: S1S2, regular rate and rhythm without overt murmur Abdomen: Soft, nondistended, nontender. Negative for masses or hepatosplenomegaly. Negative for costovertebral tenderness. Pelvis: Stable nontender. Genitourinary: Deferred. Rectal: Deferred. Skin: Shingles patterned rash noted to left side of torso; does not cross the midline. Otherwise skin is intact, warm, dry. No lesions or rashes noted. Extremities: Atraumatic, moves all extremities per self, negative for cords or calf pain. Neurovascular unremarkable. Neuro: Awake, alert, oriented. Cranial nerves II through XII unremarkable. Cerebellum unremarkable. Motor and sensory unremarkable throughout. Exam nonfocal. Notes: Blood sugar upon arrival is 136. EKG shows a sinus rhythm with rate of 59; reviewed by myself and Dr Cunha. After starting the IV fluid bous; BP did return to normal limits. Dr Ornelas (his primary care provider) briefly stopped down to talk with patient and family. Patient states he has chronic back pain since 2009. States over the past 3 months he has had intermittent episodes of syncope which has been shared with his primary care provider, Dr. Ornelas. Head CT shows chronic age related changes, no acute intracranial process identified. Chest x-ray shows chronic interstitial prominence without acute findings. Labs show mild dehydration. Vital signs remain stable. This was shared with the patient. He is adamant that he would like to be discharged to home. Risks vs benefits were discussed with patient and daughter at bedside. He is declining admission. He is aware of the risks of being discharged to home. Both patient and daughter voice understanding and are agreeable to follow-up with his primary care provider in the next 1-2 days. Daughter states that she will remain with him over the next 24 hours and return to the emergency room if his symptoms return, worsen or new symptoms develope. Diagnostics: CBC, CMP, UA, troponin, head CT, chest x-ray, EKG Therapeutics: IV fluids Impression: Dehydration Syncope Plan: 1. Please increase your oral fluids over the next 24 hours. 2. Follow-up with your primary care provider in the next 1-2 days. Return to the ED as needed and as discussed. Definitive disposition and diagnosis as appropriate pending reevaluation and review of above. Onset: Today Duration: Minutes: shoulder blades Pain Score (Numeric/FACES): 8 - Related Data Allergies Allergy/AdvReac Type Severity Reaction Status Date / Time No Known Allergies Allergy Verified 12/23/17 12:48 Home Meds: Home Meds Carbidopa/Levodopa/Entacapone [Carbidopa-Levodopa 200 mg-Enta] 50 mg PO BID [History] Metoprolol Succinate 50 mg PO DAILY 05/30/17 [History] Albuterol [Ventolin HFA] 108 gm INH Q4HR PRN 12/23/17 [History] Finasteride [Proscar] 5 mg PO DAILY 12/23/17 [History] Gabapentin [Neurontin] 300 mg PO TID 12/23/17 [History] Nitroglycerin [Nitrostat] 0.4 mg SL ASDIRECTED PRN 12/23/17 [History] valACYclovir HCl [valACYclovir] 1 g PO TID 12/23/17 [History] Past Medical History HEENT History: Reports: Cataract Cardiovascular History: Reports: Hypertension Respiratory History: Reports: None Gastrointestinal History: Reports: GERD Genitourinary History: Reports: None Musculoskeletal History: Reports: None Neurological History: Reports: Parkinson's Psychiatric History: Reports: None Endocrine/Metabolic History: Reports: None Hematologic History: Reports: None Immunologic History: Reports: None Oncologic (Cancer) History: Reports: None Dermatologic History: Reports: None - Infectious Disease History Infectious Disease History: Reports: Chicken Pox, Measles, Mumps - Past Surgical History Head Surgeries/Procedures: Reports: None HEENT Surgical History: Reports: Cataract Surgery Cardiovascular Surgical History: Reports: None Respiratory Surgical History: Reports: None GI Surgical History: Reports: None Male Surgical History: Reports: None Endocrine Surgical History: Reports: None Neurological Surgical History: Reports: None Musculoskeletal Surgical History: Reports: None Oncologic Surgical History: Reports: None Dermatological Surgical History: Reports: None Social & Family History - Family History Family Medical History: Noncontributory - Caffeine Use Caffeine Use: Reports: Coffee ED ROS GENERAL - Review of Systems Review Of Systems: ROS reveals no pertinent complaints other than HPI. ED EXAM, GENERAL - Physical Exam Exam: See Below (See dictation) Course - Vital Signs Last Recorded V/S: Last Vital Signs Temp 96.9 F 12/23/17 12:43 Pulse 60 12/23/17 12:43 Resp 16 12/23/17 12:43 BP 70/34 L 12/23/17 12:43 Pulse Ox 98 12/23/17 12:43 - Orders/Labs/Meds Orders: Active Orders 24 hr Category Date Time Status EKG Documentation Completion [RC] STAT Care 12/23/17 12:20 Active Head wo Cont [CT] Stat Exams 12/23/17 12:34 Taken UA W/MICROSCOPIC [URIN] Stat Lab 12/23/17 14:29 Ordered Labs: Laboratory Tests 12/23/17 12/23/17 12/23/17 Range/Units 12:20 12:20 12:36 WBC 5.79 (4.0-11.0) K/uL RBC 3.96 L (4.50-5.90) M/uL Hgb 12.2 L (13.0-17.0) g/dL Hct 34.5 L (38.0-50.0) % MCV 87.1 (80.0-98.0) fL MCH 30.8 (27.0-32.0) pg MCHC 35.4 (31.0-37.0) g/dL RDW Std Deviation 41.1 (28.0-62.0) fl RDW Coeff of Sonya 13 (11.0-15.0) % Plt Count 210 (150-400) K/uL MPV 9.40 (7.40-12.00) fL Neut % (Auto) 59.9 (48.0-80.0) % Lymph % (Auto) 31.3 (16.0-40.0) % [place] % (Auto) 8.1 (0.0-15.0) % Eos % (Auto) 0.5 (0.0-7.0) % Baso % (Auto) 0.2 (0.0-1.5) % Neut # (Auto) 3.5 (1.4-5.7) K/uL Lymph # (Auto) 1.8 (0.6-2.4) K/uL [place] # (Auto) 0.5 (0.0-0.8) K/uL Eos # (Auto) 0.0 (0.0-0.7) K/uL Baso # (Auto) 0.0 (0.0-0.1) K/uL Nucleated RBC % 0.0 /100WBC Nucleated RBCs # 0 K/uL Sodium 132 L (136-148) mmol/L Potassium 3.9 (3.5-5.1) mmol/L Chloride 97 L (98-107) mmol/L Carbon Dioxide 24.7 (21.0-32.0) mmol/L BUN 19 H (7.0-18.0) mg/dL Creatinine 1.4 H (0.8-1.3) mg/dL Est Cr Clr Drug Dosing 48.50 mL/min Estimated GFR (MDRD) 49.1 ml/min Glucose 145 H (74-106) mg/dL POC Glucose 136 H (60-110) mg/dL Calcium 9.0 (8.5-10.1) mg/dL Total Bilirubin 0.6 (0.2-1.0) mg/dL AST 18 (15-37) IU/L ALT 6 L (14-63) IU/L Alkaline Phosphatase 52 (46-116) U/L Troponin I < 0.050 (0.000-0.056) ng/mL Total Protein 8.3 H (6.4-8.2) g/dL Albumin 3.3 L (3.4-5.0) g/dL Globulin 5.0 H (2.0-3.5) g/dL Albumin/Globulin Ratio 0.7 L (1.3-2.8) Urine Color Urine Appearance Urine pH (5.0-8.0) Ur Specific [place] (1.001-1.035) Urine Protein (NEGATIVE) mg/dL Urine Glucose (UA) (NEGATIVE) mg/dL Urine Ketones (NEGATIVE) mg/dL Urine Occult Blood (NEGATIVE) Urine Nitrite (NEGATIVE) Urine Bilirubin (NEGATIVE) Urine Urobilinogen (<2.0) EU/dL Ur Leukocyte Esterase (NEGATIVE) Urine RBC (0-2/HPF) Urine WBC (0-5/HPF) Ur Epithelial Cells (NONE-FEW) Amorphous Sediment (NEGATIVE) Urine Bacteria (NEGATIVE) 12/23/17 Range/Units 14:29 WBC (4.0-11.0) K/uL RBC (4.50-5.90) M/uL Hgb (13.0-17.0) g/dL Hct (38.0-50.0) % MCV (80.0-98.0) fL MCH (27.0-32.0) pg MCHC (31.0-37.0) g/dL RDW Std Deviation (28.0-62.0) fl RDW Coeff of Sonya (11.0-15.0) % Plt Count (150-400) K/uL MPV (7.40-12.00) fL Neut % (Auto) (48.0-80.0) % Lymph % (Auto) (16.0-40.0) % [place] % (Auto) (0.0-15.0) % Eos % (Auto) (0.0-7.0) % Baso % (Auto) (0.0-1.5) % Neut # (Auto) (1.4-5.7) K/uL Lymph # (Auto) (0.6-2.4) K/uL [place] # (Auto) (0.0-0.8) K/uL Eos # (Auto) (0.0-0.7) K/uL Baso # (Auto) (0.0-0.1) K/uL Nucleated RBC % /100WBC Nucleated RBCs # K/uL Sodium (136-148) mmol/L Potassium (3.5-5.1) mmol/L Chloride (98-107) mmol/L Carbon Dioxide (21.0-32.0) mmol/L BUN (7.0-18.0) mg/dL Creatinine (0.8-1.3) mg/dL Est Cr Clr Drug Dosing mL/min Estimated GFR (MDRD) ml/min Glucose (74-106) mg/dL POC Glucose (60-110) mg/dL Calcium (8.5-10.1) mg/dL Total Bilirubin (0.2-1.0) mg/dL AST (15-37) IU/L ALT (14-63) IU/L Alkaline Phosphatase (46-116) U/L Troponin I (0.000-0.056) ng/mL Total Protein (6.4-8.2) g/dL Albumin (3.4-5.0) g/dL Globulin (2.0-3.5) g/dL Albumin/Globulin Ratio (1.3-2.8) Urine Color YELLOW Urine Appearance CLEAR Urine pH 6.5 (5.0-8.0) Ur Specific [place] 1.010 (1.001-1.035) Urine Protein NEGATIVE (NEGATIVE) mg/dL Urine Glucose (UA) NEGATIVE (NEGATIVE) mg/dL Urine Ketones NEGATIVE (NEGATIVE) mg/dL Urine Occult Blood NEGATIVE (NEGATIVE) Urine Nitrite NEGATIVE (NEGATIVE) Urine Bilirubin NEGATIVE (NEGATIVE) Urine Urobilinogen 0.2 (<2.0) EU/dL Ur Leukocyte Esterase NEGATIVE (NEGATIVE) Urine RBC NONE SEEN (0-2/HPF) Urine WBC 0-2 (0-5/HPF) Ur Epithelial Cells FEW (NONE-FEW) Amorphous Sediment RARE (NEGATIVE) Urine Bacteria FEW (NEGATIVE) Meds: Medications Discontinued Medications Generic Name Dose Route Start Last Admin Trade Name Freq PRN Reason Stop Dose Admin Sodium Chloride 1,000 mls @ 999 mls/hr 12/23/17 12:20 12/23/17 13:14 Normal Saline IV 12/23/17 13:20 999 mls/hr STAT ONE Administration Departure - Departure Time of Disposition: 15:24 Disposition: Home, Self-Care 01 Clinical Impression: Dehydration Syncope Qualifiers: Syncope type: unspecified Qualified Code(s): R55 - Syncope and collapse - Discharge Information Referrals: Mehran Ornelas MD [Primary Care Provider] - Forms: ED Department Discharge Additional Instructions: The following information is given to patients seen in the emergency department who are being discharged to home. This information is to outline your options for follow-up care. We provide all patients seen in our emergency department with a follow-up referral. The need for follow-up, as well as the timing and circumstances, are variable depending upon the specifics of your emergency department visit. If you don't have a primary care physician on staff, we will provide you with a referral. We always advise you to contact your personal physician following an emergency department visit to inform them of the circumstance of the visit and for follow-up with them and/or the need for any referrals to a consulting specialist. The emergency department will also refer you to a specialist when appropriate. This referral assures that you have the opportunity for follow-up care with a specialist. All of these measure are taken in an effort to provide you with optimal care, which includes your follow-up. Under all circumstances we always encourage you to contact your private physician who remains a resource for coordinating your care. When calling for follow-up care, please make the office aware that this follow-up is from your recent emergency room visit. If for any reason you are refused follow-up, please contact the [facility] Emergency Department at and asked to speak to the emergency department charge nurse. [facility] [address] [place] [id number] 1. Please increase your oral fluids over the next 24 hours. 2. As we discussed, you may want to consider following up with cardiology to further investigate your "passing out" episodes. 3. Follow-up with your primary care provider in the next 1-2 days. Return to the ED as needed and as discussed. - My Orders Last 24 Hours: My Active Orders 12/23/17 12:20 EKG Documentation Completion [RC] STAT 12/23/17 12:34 Head wo Cont [CT] Stat 12/23/17 14:29 UA W/MICROSCOPIC [URIN] Stat - Assessment/Plan Last 24 Hours: My Active Orders 12/23/17 12:20 EKG Documentation Completion [RC] STAT 12/23/17 12:34 Head wo Cont [CT] Stat 12/23/17 14:29 UA W/MICROSCOPIC [URIN] Stat
[2017-12-23 13:08] LABS: CHLORIDE,CL 97 mmol/L (98-107); SODIUM,NA 132 mmol/L (136-148)
--- NOTE | 2017-12-23 13:39 | CR ---
EXAMINATION: Portable chest radiograph. HISTORY: Diaphoresis. FINDINGS: The trachea is midline. The cardiomediastinal silhouette is within normal limits. Stable dextro posit ioning of the heart. No pulmonary infiltrates, effusions or pneumothorax. Chronic interstitial promin ence Osseous structures appear unremarkable. Degenerative changes noted within the right shoulder. IMPRESSION: Chronic interstitial prominence without acute cardiopulmonary finding.
--- NOTE | 2017-12-23 15:46 | CT ---
EXAM DATE: 12/23/17 PATIENT'S AGE: 77 Patient: ANA LEE Facility: [place], [place] Site . Site : [id number] Study: CT Head [id number] 1:04:19 PM Ordering Physician: Doctor Hayes Final Report: INDICATION: 77 year-old male. Hypotension. TECHNIQUE: Noncontrast head CT. FINDINGS: There is no evidence for acute intracranial hemorrhage, hydrocephalus, mass effect, or shift of midline structures. There is cerebral and cerebellar atrophy appropriate for the patient`s age. Minimal small vessel ischemic type change in the deep white matter of the cerebral hemispheres. No calvarial or skullbase fracture identified. The included paranasal sinuses and mastoid air cells are clear. Impression : Chronic age-related changes intracranially. No acute intracranial process identified. Please note that all CT scans at this facility use dose modulation, iterative reconstruction, and/or weight-based dosing when appropriate to reduce radiation dose to as low as reasonably achievable. Dictated by Nikos Dalton MD @ Dec 23 2017 1:38PM (Electronic Signature) Report Signed by Proxy. [facility] MED[facility] CENTERDavid
[2017-12-23 16:11] VITALS: BP 134/82
== END 2017-12-23 16:04 | disposition home or self-care (01) ==
LOC: MW.ED 12:18
DX: R55 Syncope and collapse (principal); E86.0 Dehydration; I10 Essential (primary) hypertension; K21.9 Gastro-esophageal reflux disease without esophagitis; G20 Parkinson's disease; Z79.899 Other long term (current) drug therapy; Z87.01 Personal history of pneumonia (recurrent); Z87.440 Personal history of urinary (tract) infections
CPT/HCPCS: 36415; 70450; 71045; 80053; 81001; 82962; 84484; 85025; 93005; 96360; 99285; J7040

== ENCOUNTER 2018-02-05 14:26 | Emergency (ER) | payer MEDICARE, OTHER ==
[2018-02-05] MEDS ORDERED: Sodium Chloride 0.9% 1,000 ML IV SCH (14:30)
--- NOTE | 2018-02-05 14:31 | EDM.PDOC ---
ED HPI GENERAL MEDICAL PROBLEM - General Chief Complaint: Syncope Stated Complaint: AMB Time Seen by Provider: 02/05/18 14:28 Source of Information: Reports: Patient, EMS - History of Present Illness INITIAL COMMENTS - FREE TEXT/NARRATIVE: HISTORY AND PHYSICAL: History of present illness: [Patient presents via EMS He was found in his car unresponsive, in place arrival they reported patient was not breathing On EMS arrival patient was alert maintained his own airway and hemodynamically stable, he arrives to emergency room as such No fever nausea vomiting diarrhea constipation chest pain shortness breath headache dizziness palpitation about a urine symptoms No CPR or ACLS/ BLS provided] His is at bedside he has been here for a couple of hours his lab as returning essentially normal as creatinine is little bit increased have learned that he was out to mow the lawn sat down in his car able to arouse him which was of concern and she called 911 for assistance Patient is not willing to stay for observation is essentially normal he was out for observation admission and refuses desiring to leave Review of systems: As per history of present illness and below otherwise all systems reviewed and negative. Past medical history: As per history of present illness and as reviewed below otherwise noncontributory. Surgical history: As per history of present illness and as reviewed below otherwise noncontributory. Social history: No reported history of drug or alcohol abuse. Family history: As per history of present illness and as reviewed below otherwise noncontributory. Physical exam: HEENT: Atraumatic, normocephalic, pupils reactive, negative for conjunctival pallor or scleral icterus, mucous membranes moist, throat clear, neck supple, nontender, trachea midline. Lungs: Clear to auscultation, breath sounds equal bilaterally, chest nontender. Heart: S1S2, regular, negative for clicks, rubs, or JVD. Abdomen: Soft, nondistended, nontender. Negative for masses or hepatosplenomegaly. Negative for costovertebral tenderness. Pelvis: Stable nontender. Genitourinary: Deferred. Rectal: Deferred. Extremities: Atraumatic, negative for cords or calf pain. Neurovascular unremarkable. Neuro: Awake, alert, oriented. Cranial nerves II through XII unremarkable. Cerebellum unremarkable. Motor and sensory unremarkable throughout. Exam nonfocal. Diagnostics: [CBC CMP troponin lipase UA drug screen alcohol level TSH EKG chest [address] no contrast] Therapeutics: [normal saline 1 25 mL per hour ]Z-Milton no refill-coverage for possible infiltrate right upper lobe Patient requests Medrol dose pack for gout symptoms Due to renal insufficiency now provided colchicine or Indocin Follow-up with primary care in 2 weeks She was offered observation admission and refused Impression: [ syncope Possible infiltrate right upper lobe ] chronic history of baseline Definitive disposition and diagnosis as appropriate pending reevaluation and review of above. - Related Data Allergies Allergy/AdvReac Type Severity Reaction Status Date / Time No Known Allergies Allergy Verified 02/05/18 14:37 Home Meds: Home Meds Carbidopa/Levodopa/Entacapone [Carbidopa-Levodopa 200 mg-Enta] 50 mg PO BID [History] Metoprolol Succinate 50 mg PO DAILY 05/30/17 [History] Albuterol [Ventolin HFA] 108 gm INH Q4HR PRN 12/23/17 [History] Finasteride [Proscar] 5 mg PO DAILY 12/23/17 [History] Gabapentin [Neurontin] 300 mg PO TID 12/23/17 [History] Nitroglycerin [Nitrostat] 0.4 mg SL ASDIRECTED PRN 12/23/17 [History] valACYclovir HCl [valACYclovir] 1 g PO TID 12/23/17 [History] Past Medical History HEENT History: Reports: Cataract Cardiovascular History: Reports: Hypertension Respiratory History: Reports: None Gastrointestinal History: Reports: GERD Genitourinary History: Reports: None Musculoskeletal History: Reports: None Neurological History: Reports: Parkinson's Psychiatric History: Reports: None Endocrine/Metabolic History: Reports: None Hematologic History: Reports: None Immunologic History: Reports: None Oncologic (Cancer) History: Reports: None Dermatologic History: Reports: None - Infectious Disease History Infectious Disease History: Reports: Chicken Pox, Measles, Mumps - Past Surgical History Head Surgeries/Procedures: Reports: None HEENT Surgical History: Reports: Cataract Surgery Cardiovascular Surgical History: Reports: None Respiratory Surgical History: Reports: None GI Surgical History: Reports: None Male Surgical History: Reports: None Endocrine Surgical History: Reports: None Neurological Surgical History: Reports: None Musculoskeletal Surgical History: Reports: None Oncologic Surgical History: Reports: None Dermatological Surgical History: Reports: None Social & Family History - Family History Family Medical History: Noncontributory - Caffeine Use Caffeine Use: Reports: Coffee ED ROS GENERAL - Review of Systems Review Of Systems: See Below ED EXAM, GENERAL - Physical Exam Exam: See Below Course - Vital Signs Last Recorded V/S: Last Vital Signs Temp 98.5 F 02/05/18 14:38 Pulse 78 02/05/18 15:13 Resp 18 02/05/18 15:13 BP 120/63 02/05/18 15:13 Pulse Ox 95 02/05/18 14:38 - Orders/Labs/Meds Orders: Active Orders 24 hr Category Date Time Status EKG Documentation Completion [RC] STAT Care 02/05/18 14:27 Active Chest 1V Frontal [CR] Stat Exams 02/05/18 14:27 Taken Head wo Cont [CT] Stat Exams 02/05/18 14:27 Taken DRUG SCREEN, URINE [URCHEM] Stat Lab 02/05/18 14:27 Ordered UA W/MICROSCOPIC [URIN] Stat Lab 02/05/18 14:27 Ordered Sodium Chloride 0.9% [Normal Saline] 1,000 ml Med 02/05/18 14:30 Active IV STAT Medication Orders Sodium Chloride (Normal Saline) 1,000 mls @ 125 mls/hr IV STAT FARIDA Last Admin: 02/05/18 15:59 Dose: 125 mls/hr Labs: Laboratory Tests 02/05/18 02/05/18 Range/Units 14:38 14:38 WBC 7.00 (4.0-11.0) K/uL RBC 3.76 L (4.50-5.90) M/uL Hgb 11.5 L (13.0-17.0) g/dL Hct 33.4 L (38.0-50.0) % MCV 88.8 (80.0-98.0) fL MCH 30.6 (27.0-32.0) pg MCHC 34.4 (31.0-37.0) g/dL RDW Std Deviation 43.5 (28.0-62.0) fl RDW Coeff of Sonya 13 (11.0-15.0) % Plt Count 190 (150-400) K/uL MPV 9.60 (7.40-12.00) fL Neut % (Auto) 80.9 H (48.0-80.0) % Lymph % (Auto) 13.7 L (16.0-40.0) % [place] % (Auto) 4.9 (0.0-15.0) % Eos % (Auto) 0.4 (0.0-7.0) % Baso % (Auto) 0.1 (0.0-1.5) % Neut # (Auto) 5.7 (1.4-5.7) K/uL Lymph # (Auto) 1.0 (0.6-2.4) K/uL [place] # (Auto) 0.3 (0.0-0.8) K/uL Eos # (Auto) 0.0 (0.0-0.7) K/uL Baso # (Auto) 0.0 (0.0-0.1) K/uL Nucleated RBC % 0.0 /100WBC Nucleated RBCs # 0 K/uL Sodium 136 (136-148) mmol/L Potassium 4.5 (3.5-5.1) mmol/L Chloride 101 (98-107) mmol/L Carbon Dioxide 25.7 (21.0-32.0) mmol/L BUN 22 H (7.0-18.0) mg/dL Creatinine 1.8 H (0.8-1.3) mg/dL Est Cr Clr Drug Dosing 37.72 mL/min Estimated GFR (MDRD) 36.8 ml/min Glucose 127 H (74-106) mg/dL Calcium 8.9 (8.5-10.1) mg/dL Total Bilirubin 0.4 (0.2-1.0) mg/dL AST 20 (15-37) IU/L ALT 7 L (14-63) IU/L Alkaline Phosphatase 53 (46-116) U/L Troponin I < 0.050 (0.000-0.056) ng/mL Total Protein 8.0 (6.4-8.2) g/dL Albumin 3.2 L (3.4-5.0) g/dL Globulin 4.8 H (2.0-3.5) g/dL Albumin/Globulin Ratio 0.7 L (1.3-2.8) Lipase 124 (73-393) U/L TSH 3rd Generation 2.50 (0.36-3.74) uIU/mL Ethyl Alcohol < 3.0 mg/dL Meds: Medications Generic Name Dose Route Start Last Admin Trade Name Freq PRN Reason Stop Dose Admin Sodium Chloride 1,000 mls @ 125 mls/hr 02/05/18 14:30 02/05/18 15:59 Normal Saline IV 125 mls/hr STAT FARIDA Administration Departure - Departure Time of Disposition: 16:11 Disposition: Home, Self-Care 01 Condition: Good Clinical Impression: Syncope Qualifiers: Syncope type: unspecified Qualified Code(s): R55 - Syncope and collapse - Discharge Information Forms: ED Department Discharge Additional Instructions: The following information is given to patients seen in the emergency department who are being discharged to home. This information is to outline your options for follow-up care. We provide all patients seen in our emergency department with a follow-up referral. The need for follow-up, as well as the timing and circumstances, are variable depending upon the specifics of your emergency department visit. If you don't have a primary care physician on staff, we will provide you with a referral. We always advise you to contact your personal physician following an emergency department visit to inform them of the circumstance of the visit and for follow-up with them and/or the need for any referrals to a consulting specialist. The emergency department will also refer you to a specialist when appropriate. This referral assures that you have the opportunity for follow-up care with a specialist. All of these measure are taken in an effort to provide you with optimal care, which includes your follow-up. Under all circumstances we always encourage you to contact your private physician who remains a resource for coordinating your care. When calling for follow-up care, please make the office aware that this follow-up is from your recent emergency room visit. If for any reason you are refused follow-up, please contact the [facility] emergency department at and asked to speak to the emergency department charge nurse. - My Orders Last 24 Hours: My Active Orders 02/05/18 14:27 EKG Documentation Completion [RC] STAT Chest 1V Frontal [CR] Stat Head wo Cont [CT] Stat DRUG SCREEN, URINE [URCHEM] Stat UA W/MICROSCOPIC [URIN] Stat 02/05/18 14:30 Sodium Chloride 0.9% [Normal Saline] 1,000 ml IV STAT - Assessment/Plan Last 24 Hours: My Active Orders 02/05/18 14:27 EKG Documentation Completion [RC] STAT Chest 1V Frontal [CR] Stat Head wo Cont [CT] Stat DRUG SCREEN, URINE [URCHEM] Stat UA W/MICROSCOPIC [URIN] Stat 02/05/18 14:30 Sodium Chloride 0.9% [Normal Saline] 1,000 ml IV STAT
[2018-02-05 15:14] LABS: CHLORIDE,CL 101 mmol/L (98-107); SODIUM,NA 136 mmol/L (136-148)
[2018-02-05 16:15] VITALS: BP 173/86
--- NOTE | 2018-02-05 19:11 | CT ---
EXAM DATE: 02/05/18 PATIENT'S AGE: 77 Patient: ANA LEE Facility: [place], [place] Site . Site : 1940 Study: CT Head [id number]/6/2018 3:22:28 PM Ordering Physician: Denisse Fisher Final Report: INDICATION: Syncopal Episode TECHNIQUE: CT Head without contrast. COMPARISON: 12/23/2017 FINDINGS: There is no sign of intracranial hemorrhage or mass effect. Diffuse cerebral atrophy. Nonspecific low-attenuation along the periventricular white matter, most likely related to chronic microvascular disease. The mullen-white differentiation is preserved. 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 No acute disease of the visualized paranasal sinuses and mastoid air cells. Chronic leftward deviated nasal septum. Postsurgical changes along the globes bilaterally. No fracture evident. No scalp hematoma/laceration. IMPRESSION: No acute intracranial process. Please note that all CT scans at this facility use dose modulation, iterative reconstruction, and/or weight-based dosing when appropriate to reduce radiation dose to as low as reasonably achievable. Dictated by: Moustapha Schuster MD @ 02/05/2018 15:31:12 (Electronic Signature) Report Signed by Proxy. [facility]
--- NOTE | 2018-02-05 19:12 | CR ---
EXAM DATE: 02/05/18 PATIENT'S AGE: 77 Patient: ANA LEE Facility: [place], [place] Site . Site : 1940 Study: XRay Chest [id number]/6/2018 3:26:21 PM Ordering Physician: Denisse Fisher Final Report: INDICATION: syncope TECHNIQUE: Chest 1 view. Patient rotation degrades evaluation COMPARISON: December 23, 2017 FINDINGS: Cardiovascular and mediastinum: Stable cardiac silhouette. Prominence of the left pulmonary artery. Lungs and pleural space: Questionable subtle right upper lobe consolidation. Scarring/hyperinflation. No sign of pleural effusion. No pneumothorax. Bones and soft tissues: Degenerative changes. IMPRESSION: Questionable subtle right upper lobe consolidation. Please correlate for signs of pneumonia. Dictated by Moustapha Schuster MD @ 02/05/2018 3:36:20 PM Dictated by: Moustapha Schuster MD @ 02/05/2018 15:36:29 (Electronic Signature) Report Signed by Proxy. [facility]
== END 2018-02-05 16:39 | disposition home or self-care (01) ==
LOC: MW.ED 14:26
DX: R55 Syncope and collapse (principal); I10 Essential (primary) hypertension; K21.9 Gastro-esophageal reflux disease without esophagitis; G20 Parkinson's disease; Z79.899 Other long term (current) drug therapy
CPT/HCPCS: 36415; 70450; 71045; 80053; 83690; 84443; 84484; 85025; 93005; 99285; G0480; J7040; 99283

== ENCOUNTER 2019-04-23 08:50 | Emergency (ER) | payer MEDICARE, OTHER ==
[2019-04-23 09:05] VITALS: BP 146/96; PULSE 78
--- NOTE | 2019-04-23 09:14 | EDM.PDOC ---
ED HPI GENERAL MEDICAL PROBLEM - General Chief Complaint: Genitourinary Problem Stated Complaint: BLEEDING UA Time Seen by Provider: 04/23/19 09:13 Source of Information: Reports: Patient - History of Present Illness INITIAL COMMENTS - FREE TEXT/NARRATIVE: HISTORY AND PHYSICAL: History of present illness: [Patient presents with urinary pain/dysuria and frequency for 24-48 hours no fever nausea vomiting chills sweats some perirectal discomfort] Review of systems: As per history of present illness and below otherwise all systems reviewed and negative. Past medical history: As per history of present illness and as reviewed below otherwise noncontributory. Surgical history: As per history of present illness and as reviewed below otherwise noncontributory. Social history: No reported history of drug or alcohol abuse. Family history: As per history of present illness and as reviewed below otherwise noncontributory. Physical exam: HEENT: Atraumatic, normocephalic, pupils reactive, negative for conjunctival pallor or scleral icterus, mucous membranes moist, throat clear, neck supple, nontender, trachea midline. Lungs: Clear to auscultation, breath sounds equal bilaterally, chest nontender. Heart: S1S2, regular, negative for clicks, rubs, or JVD. Abdomen: Soft, nondistended, nontender. Negative for masses or hepatosplenomegaly. Negative for costovertebral tenderness. Pelvis: Stable nontender. Genitourinary: Deferred. Rectal: Deferred. Extremities: Atraumatic, negative for cords or calf pain. Neurovascular unremarkable. Neuro: Awake, alert, oriented. Cranial nerves II through XII unremarkable. Cerebellum unremarkable. Motor and sensory unremarkable throughout. Exam nonfocal. Diagnostics: CBC, CMP, PSA UA ] Therapeutics: Bactrim single strength #60 no refill All up with primary care in 2 weeks sooner as needed RpW Impression: Prostatitis Definitive disposition and diagnosis as appropriate pending reevaluation and review of above. - Related Data Allergies Allergy/AdvReac Type Severity Reaction Status Date / Time No Known Allergies Allergy Verified 04/23/19 09:04 Home Meds: Home Meds Finasteride 5 mg PO ASDIRECTED 04/23/19 [History] Fludrocortisone [Florinef] 0.1 mg PO ASDIRECTED 04/23/19 [History] Furosemide 40 mg PO ASDIRECTED 04/23/19 [History] Metoprolol Succinate [Toprol XL 50mg] 50 mg PO ASDIRECTED 04/23/19 [History] Potassium Chloride 10 meq PO ASDIRECTED 04/23/19 [History] Rosuvastatin [Crestor] 20 mg PO ASDIRECTED 04/23/19 [History] Past Medical History HEENT History: Reports: Cataract Cardiovascular History: Reports: Hypertension Respiratory History: Reports: None Gastrointestinal History: Reports: GERD Genitourinary History: Reports: None Musculoskeletal History: Reports: None Neurological History: Reports: Parkinson's Psychiatric History: Reports: None Endocrine/Metabolic History: Reports: None Hematologic History: Reports: None Immunologic History: Reports: None Oncologic (Cancer) History: Reports: None Dermatologic History: Reports: None - Infectious Disease History Infectious Disease History: Reports: Chicken Pox, Measles, Mumps - Past Surgical History Head Surgeries/Procedures: Reports: None HEENT Surgical History: Reports: Cataract Surgery Cardiovascular Surgical History: Reports: None Respiratory Surgical History: Reports: None GI Surgical History: Reports: None Male Surgical History: Reports: None Endocrine Surgical History: Reports: None Neurological Surgical History: Reports: None Musculoskeletal Surgical History: Reports: None Oncologic Surgical History: Reports: None Dermatological Surgical History: Reports: None Social & Family History - Family History Family Medical History: Noncontributory - Tobacco Use Smoking Status *Q: Former Smoker Used Tobacco, but Quit: Yes Month/Year Tobacco Last Used: 25 years - Caffeine Use Caffeine Use: Reports: Coffee - Recreational Drug Use Recreational Drug Use: No ED ROS GENERAL - Review of Systems Review Of Systems: See Below ED EXAM, GENERAL - Physical Exam Exam: See Below Course - Vital Signs Last Recorded V/S: Last Vital Signs Temp 97.1 F 04/23/19 09:02 Pulse 78 04/23/19 09:02 Resp 18 04/23/19 09:02 BP 146/96 H 04/23/19 09:02 Pulse Ox 97 04/23/19 09:02 - Orders/Labs/Meds Labs: Laboratory Tests 04/23/19 04/23/19 04/23/19 Range/Units 09:10 09:31 09:31 WBC 9.28 (4.0-11.0) K/uL RBC 3.94 L (4.50-5.90) M/uL Hgb 12.1 L (13.0-17.0) g/dL Hct 35.4 L (38.0-50.0) % MCV 89.8 (80.0-98.0) fL MCH 30.7 (27.0-32.0) pg MCHC 34.2 (31.0-37.0) g/dL RDW Std Deviation 45.0 (28.0-62.0) fl RDW Coeff of Sonya 14 (11.0-15.0) % Plt Count 170 (150-400) K/uL MPV 9.40 (7.40-12.00) fL Neut % (Auto) 83.0 H (48.0-80.0) % Lymph % (Auto) 11.5 L (16.0-40.0) % [place] % (Auto) 5.1 (0.0-15.0) % Eos % (Auto) 0.3 (0.0-7.0) % Baso % (Auto) 0.1 (0.0-1.5) % Neut # (Auto) 7.7 H (1.4-5.7) K/uL Lymph # (Auto) 1.1 (0.6-2.4) K/uL [place] # (Auto) 0.5 (0.0-0.8) K/uL Eos # (Auto) 0.0 (0.0-0.7) K/uL Baso # (Auto) 0.0 (0.0-0.1) K/uL Nucleated RBC % 0.0 /100WBC Nucleated RBCs # 0 K/uL Sodium 133 L (136-148) mmol/L Potassium 4.2 (3.5-5.1) mmol/L Chloride 97 L (98-107) mmol/L Carbon Dioxide 28.9 (21.0-32.0) mmol/L BUN 20 H (7.0-18.0) mg/dL Creatinine 1.4 H (0.8-1.3) mg/dL Est Cr Clr Drug Dosing TNP Estimated GFR (MDRD) 49.0 ml/min Glucose 113 H (74-106) mg/dL Calcium 9.1 (8.5-10.1) mg/dL Prostate Specific Ag 4.53 H (0.05-4.00) ng/mL Urine Color DARK YELLOW Urine Appearance SLT CLOUDY Urine pH 6.0 (5.0-8.0) Ur Specific [place] 1.010 (1.001-1.035) Urine Protein 30 H (NEGATIVE) mg/dL Urine Glucose (UA) NEGATIVE (NEGATIVE) mg/dL Urine Ketones NEGATIVE (NEGATIVE) mg/dL Urine Occult Blood LARGE H (NEGATIVE) Urine Nitrite NEGATIVE (NEGATIVE) Urine Bilirubin NEGATIVE (NEGATIVE) Urine Urobilinogen 0.2 (<2.0) EU/dL Ur Leukocyte Esterase MODERATE H (NEGATIVE) Urine RBC 75-100 (0-2/HPF) Urine WBC 10-20 (0-5/HPF) Ur Epithelial Cells RARE (NONE-FEW) Urine Bacteria FEW (NEGATIVE) Departure - Departure Time of Disposition: 10:23 Disposition: Home, Self-Care 01 Condition: Good Clinical Impression: UTI, Urinary tract infectious disease, Prostatitis - Discharge Information Referrals: Mehran Ornelas MD [Primary Care Provider] - Forms: ED Department Discharge Additional Instructions: Continue current home medications as directed Medication as prescribed Return if symptoms persist or worsen or if new concerning symptoms develop such as fever nausea vomiting chills sweats despite treatment Follow-up with primary care in 2 weeks for vicky [facility] - [facility] [address] [place] [address] The following information is given to patients seen in the emergency department who are being discharged to home. This information is to outline your options for follow-up care. We provide all patients seen in our emergency department with a follow-up referral. The need for follow-up, as well as the timing and circumstances, are variable depending upon the specifics of your emergency department visit. If you don't have a primary care physician on staff, we will provide you with a referral. We always advise you to contact your personal physician following an emergency department visit to inform them of the circumstance of the visit and for follow-up with them and/or the need for any referrals to a consulting specialist. The emergency department will also refer you to a specialist when appropriate. This referral assures that you have the opportunity for follow-up care with a specialist. All of these measure are taken in an effort to provide you with optimal care, which includes your follow-up. Under all circumstances we always encourage you to contact your private physician who remains a resource for coordinating your care. When calling for follow-up care, please make the office aware that this follow-up is from your recent emergency room visit. If for any reason you are refused follow-up, please contact the [facility] emergency department at and asked to speak to the emergency department charge nurse.
[2019-04-23 10:10] LABS: BLOOD UREA NITROGEN,BUN 20 mg/dL (7.0-18.0); CARBON DIOXIDE,CO2 28.9 mmol/L (21.0-32.0); CHLORIDE,CL 97 mmol/L (98-107); GLUCOSE RANDOM 113 mg/dL (74-106); POTASSIUM,K 4.2 mmol/L (3.5-5.1); SODIUM,NA 133 mmol/L (136-148)
== END 2019-04-23 10:36 | disposition home or self-care (01) ==
LOC: MW.ED 08:50
DX: N41.9 Inflammatory disease of prostate, unspecified (principal); N39.0 Urinary tract infection, site not specified; I10 Essential (primary) hypertension; G20 Parkinson's disease; Z98.49 Cataract extraction status, unspecified eye; Z79.899 Other long term (current) drug therapy; Z87.891 Personal history of nicotine dependence
CPT/HCPCS: 36415; 80048; 81001; 84153; 85025; 99283

== ENCOUNTER 2019-09-13 06:41 | Day surgery (SDC) | payer MEDICARE, OTHER ==
[~2019-09-13 06:41] MED LIST: Lactated Ringers 1,000 ML IV SCH; Sodium Chloride 0.9% 10 ML SDV IV PRN; Sodium Chloride 0.9% 10 ML Syringe FLUSH PRN; Sodium Chloride 0.9% 2.5 ML Syringe FLUSH PRN; ceFAZolin 1 GM in Premix Bag 1 BAG IV ONE
[2019-09-13] MEDS ORDERED: fentaNYL 100 MCG/2 ML SDV ONE (07:12)
[2019-09-13] MEDS ORDERED: Midazolam 1 MG/ML 2 ML SDV ONE (07:12)
[2019-09-13] MEDS ORDERED: Propofol 200 MG/20 ML SDV ONE (07:12)
[2019-09-13] MEDS ORDERED: Ketorolac 30 MG/ML SDV ONE (07:13)
[2019-09-13] MEDS ORDERED: Glycopyrrolate 0.2 MG/ML SDV ONE (07:13)
[2019-09-13] MEDS ORDERED: Lidocaine 2% 5 ML SDV ONE (07:13)
[2019-09-13] MEDS ORDERED: Phenylephrine/Normal Saline 100 MCG/ML 10 ML Syringe ONE (07:13)
[2019-09-13] MEDS ORDERED: Ondansetron 4 MG/2 ML SDV ONE (07:13)
--- NOTE | 2019-09-13 07:36 | PCM.PREANE ---
Preanesthetic Assessment - Anesthesia/Transfusion/Family Hx Anesthesia History: Prior Anesthesia Without Reaction Family History of Anesthesia Reaction: No Transfusion History: No Prior Transfusion(s) Intubation History: Unknown - Review of Systems General: No Symptoms Pulmonary: No Symptoms Cardiovascular: No Symptoms Gastrointestinal: No Symptoms Neurological: No Symptoms Other: Reports: None - Physical Assessment Vital Signs: Last Vital Signs Temp 36.6 C 09/13/19 06:50 Pulse 72 09/13/19 06:50 Resp 20 09/13/19 06:50 BP 180/79 H 09/13/19 06:50 Pulse Ox 96 09/13/19 06:50 Height: 6 ft Weight: 86.183 kg ASA Class: 3 Mental Status: Alert & Oriented x3 Airway Class: Mallampati = 2 Dentition: Reports: Missing Tooth/Teeth (multiple) Thyro-Mental Finger Breadths: 3 Mouth Opening Finger Breadths: 2 ROM/Head Extension: Limited/Partial Lungs: Clear to Auscultation, Normal Respiratory Effort Cardiovascular: Regular Rate, Regular Rhythm - Allergies Allergies/Adverse Reactions: Allergies Allergy/AdvReac Type Severity Reaction Status Date / Time No Known Allergies Allergy Verified 09/07/19 14:22 - Blood Blood Available: No - Anesthesia Plan Pre-Op Medication Ordered: None - Acknowledgements Anesthesia Type Planned: General Anesthesia Pt an Appropriate Candidate for the Planned Anesthesia: Yes Alternatives and Risks of Anesthesia Discussed w Pt/Guardian: Yes Pt/Guardian Understands and Agrees with Anesthesia Plan: Yes PreAnesthesia Questionnaire HEENT History: Reports: Cataract Other HEENT History: wears glasses for reading, Cardiovascular History: Reports: Arrhythmia (h/o of SVT and V. tach), CAD ( stress test 1 1/2 years ago was normal), Heart Murmur (aortic valve sclerosis), High Cholesterol, Hypertension, PVD (s/p lt. carotid endarterectomy), SOB on Exertion (after one block), Syncope Respiratory History: Reports: COPD (severe, does not take inhalers, he thinks they do not help) Other Respiratory History: states seldom uses inhaler Gastrointestinal History: Reports: GERD Genitourinary History: Reports: BPH, Prostate Disorder Musculoskeletal History: Reports: Arthritis, Back Pain, Chronic, Gout Neurological History: Reports: Parkinson's Psychiatric History: Reports: None Endocrine/Metabolic History: Reports: None Hematologic History: Reports: None Immunologic History: Reports: None Oncologic (Cancer) History: Reports: None Dermatologic History: Reports: None - Infectious Disease History Infectious Disease History: Reports: Chicken Pox, Measles, Mumps - Past Surgical History Head Surgeries/Procedures: Reports: None HEENT Surgical History: Reports: Cataract Surgery Cardiovascular Surgical History: Reports: Carotid Endarterectomy Other Cardiovascular Surgeries/Procedures: angioplasty, lt carotid thromboendarterectomy 07/20 Respiratory Surgical History: Reports: None GI Surgical History: Reports: None Male Surgical History: Reports: None Endocrine Surgical History: Reports: None Neurological Surgical History: Reports: None Musculoskeletal Surgical History: Reports: None Oncologic Surgical History: Reports: None Dermatological Surgical History: Reports: None - SUBSTANCE USE Tobacco Use Within Last Twelve Months: Other (See Below) (chew) Recreational Drug Use History: No - HOME MEDS Home Medications: Home Meds Finasteride 5 mg PO DAILY 04/23/19 [History] Fludrocortisone [Florinef] 0.25 tab PO ASDIRECTED 04/23/19 [History] Furosemide 40 mg PO DAILY 04/23/19 [History] Metoprolol Succinate [Toprol XL 50mg] 50 mg PO BEDTIME 04/23/19 [History] Potassium Chloride 10 meq PO ASDIRECTED 04/23/19 [History] Rosuvastatin [Crestor] 20 mg PO ASDIRECTED 04/23/19 [History] Albuterol [Ventolin HFA] 2 puff INH ASDIRECTED PRN 09/07/19 [History] Aspirin [Low Dose Aspirin EC] 81 mg PO DAILY 09/07/19 [History] Carbidopa/Levodopa [Carbidopa-Levo ER 50-200] 1 tab PO BID 09/07/19 [History] Indomethacin 1 tab PO BID PRN 09/07/19 [History] Nitroglycerin 1 tab SL ASDIRECTED PRN 09/07/19 [History] - CURRENT (IN HOUSE) MEDS Current Meds: Current Medications Lactated Ringer's (Ringers, Lactated) 1,000 mls @ 100 mls/hr IV ASDIRECTED FARIDA Last Admin: 09/13/19 07:10 Dose: 100 mls/hr Sodium Chloride (Saline Flush) 10 ml FLUSH ASDIRECTED PRN PRN Reason: Keep Vein Open Sodium Chloride (Saline Flush) 2.5 ml FLUSH ASDIRECTED PRN PRN Reason: Keep Vein Open Sodium Chloride (Normal Saline) 10 ml IV ASDIRECTED PRN PRN Reason: IV Use Discontinued Medications Fentanyl (Sublimaze) Confirm Administered Dose 100 mcg .ROUTE .STK-MED ONE Stop: 09/13/19 07:13 Glycopyrrolate (Robinul) Confirm Administered Dose 0.2 mg .ROUTE .STK-MED ONE Stop: 09/13/19 07:14 Cefazolin Sodium/Dextrose 1 gm (/ Premix) 50 mls @ 100 mls/hr IV ONCALL ONE Stop: 09/13/19 00:29 Ketorolac Tromethamine (Toradol) Confirm Administered Dose 30 mg .ROUTE .STK- MED ONE Stop: 09/13/19 07:14 Lidocaine (Xylocaine-Mpf 2%) Confirm Administered Dose 5 ml .ROUTE .STK-MED ONE Stop: 09/13/19 07:14 Midazolam HCl (Versed 1 Mg/Ml) Confirm Administered Dose 2 mg .ROUTE .STK-MED ONE Stop: 09/13/19 07:13 Ondansetron HCl (Zofran) Confirm Administered Dose 4 mg .ROUTE .STK-MED ONE Stop: 09/13/19 07:14 Phenylephrine HCl (Phenylephrine In Ns 100 Mcg/Ml) Confirm Administered Dose 1 mg .ROUTE .STK-MED ONE Stop: 09/13/19 07:14 Propofol (Diprivan 20 Ml) Confirm Administered Dose 200 mg .ROUTE .STK-MED ONE Stop: 09/13/19 07:13
[2019-09-13] MEDS ORDERED: ceFAZolin 1 GM Vial ONE (08:22)
[2019-09-13] MEDS ORDERED: Sodium Chloride 0.9% 20 ML ONE (08:22)
[2019-09-13] MEDS ORDERED: Nitroglycerin 0.4 MG Tab.SL SL PRN (09:05)
[2019-09-13] MEDS ORDERED: INDOMETHACIN PO PRN (09:05)
[2019-09-13] MEDS ORDERED: Non-Formulary Medication 1 Each (Potassium Chloride [Potassium Chloride] 10 MEQ) PO SCH (09:15)
[2019-09-13] MEDS ORDERED: Fludrocortisone 0.1 MG Tab PO SCH (09:15)
[2019-09-13] MEDS ORDERED: Rosuvastatin 10 MG Tab PO SCH (09:15)
--- NOTE | 2019-09-13 09:23 | PCM.POSTAN ---
POST ANESTHESIA ASSESSMENT - MENTAL STATUS Mental Status: Alert, Oriented - VITAL SIGNS Vital Signs: Last Vital Signs Temp 37 C 09/13/19 09:00 Pulse 64 09/13/19 09:15 Resp 12 09/13/19 09:15 BP 127/58 L 09/13/19 09:15 Pulse Ox 93 L 09/13/19 09:15 - RESPIRATORY Respiratory Status: Respiratory Rate WNL, Airway Patent, O2 Saturation Stable - CARDIOVASCULAR CV Status: Pulse Rate WNL, Blood Pressure Stable - GASTROINTESTINAL GI Status: No Symptoms - PAIN Pain Score: 0 - POST OP HYDRATION Hydration Status: Adequate & Stable - OBSERVATIONS Free Text/Narrative:: No anesthesia problems
--- NOTE | 2019-09-13 11:36 | PCM48HPAN ---
Post Anesthesia Note - EVALUATION WITHIN 48HRS OF ANESTHETIC Vital Signs in Normal Range: Yes Patient Participated in Evaluation: Yes Respiratory Function Stable: Yes Airway Patent: Yes Cardiovascular Function Stable: Yes Hydration Status Stable: Yes Pain Control Satisfactory: Yes Nausea and Vomiting Control Satisfactory: Yes Mental Status Recovered: Yes Vital Signs: Last Vital Signs Temp 36.5 C 09/13/19 09:22 Pulse 66 09/13/19 09:22 Resp 16 09/13/19 09:41 BP 135/62 09/13/19 09:41 Pulse Ox 95 09/13/19 09:41 - COMMENTS/OBSERVATIONS Free Text/Narrative:: No anesthesia problems
[2019-09-13 11:51] VITALS: PULSE 65
[2019-09-13 11:52] VITALS: BP 142/70
--- NOTE | 2019-09-13 13:09 | OR ---
SURGEON: Lois Delgado M.D. DATE OF PROCEDURE: 09/13/2019 PREOPERATIVE DIAGNOSIS: Multiple pendulous urethral strictures. POSTOPERATIVE DIAGNOSIS: Multiple pendulous urethral strictures. OPERATION: Visual urethrotomy and placement of Nash catheter. DESCRIPTION OF PROCEDURE: The patient was given general anesthesia. He was placed in the dorsal lithotomy position, prepped and draped in sterile drapes. The visual urethrotome was introduced in the urethra and the strictures totaling 3 in number were cut in 4 quadrants, creating enough pathway for the visual urethrotome to get in the bladder. He does have a partially obstructive prostate with a [id number] protrusion of the median lobe. The inside of the bladder showed 3 to 4+ trabeculations. There were no tumors or stones seen in the bladder. With that done, the visual urethrotome was taken out and a 22-Macedonian cystoscope was placed in after which an 18-Macedonian Nash catheter was placed in the bladder, connected to straight drainage, that will stay in for the next 3 days. He comes back as needed. EDGARDO / JOSE /[id number]
[2019-09-13] MEDS ORDERED: Carbidopa/Levodopa 50-200 MG Tab.ER PO SCH (21:00)
[2019-09-13] MEDS ORDERED: Metoprolol Succinate 50 MG Tab.ER PO SCH (21:00)
[2019-09-14] MEDS ORDERED: Non-Formulary Medication 1 Each (Aspirin [Low Dose Aspirin Ec] 81 MG) PO SCH (09:00)
[2019-09-14] MEDS ORDERED: Finasteride 5 MG Tab PO SCH (09:00)
[2019-09-14] MEDS ORDERED: Furosemide 40 MG Tab PO SCH (09:00)
== END 2019-09-13 11:47 | disposition home or self-care (01) ==
LOC: MW.SDS 06:41
PROVIDERS: ATTEND Urology
DX: N35.919 Unspecified urethral stricture, male, unspecified site (principal); N40.1 Benign prostatic hyperplasia with lower urinary tract symptoms; N13.8 Other obstructive and reflux uropathy; N32.89 Other specified disorders of bladder; I10 Essential (primary) hypertension; E78.00 Pure hypercholesterolemia, unspecified; I25.10 Atherosclerotic heart disease of native coronary artery without angina pectoris; J44.9 Chronic obstructive pulmonary disease, unspecified; K21.9 Gastro-esophageal reflux disease without esophagitis; G20 Parkinson's disease; M47.816 Spondylosis without myelopathy or radiculopathy, lumbar region; M47.812 Spondylosis without myelopathy or radiculopathy, cervical region; M19.011 Primary osteoarthritis, right shoulder; Z87.891 Personal history of nicotine dependence; Z79.82 Long term (current) use of aspirin; Z79.51 Long term (current) use of inhaled steroids; Z79.899 Other long term (current) drug therapy
CPT/HCPCS: 52276; J0690; J1885; J2001; J2250; J2370; J2405; J2704; J3010; J3490; J7120; 00910

== ENCOUNTER 2019-11-14 12:04 | Emergency (ER) | payer MEDICARE, OTHER ==
[2019-11-14] MEDS ORDERED: Nitroglycerin/D5W 25 MG/250 ML BOTTLE IV SCH (12:15)
[2019-11-14] MEDS ORDERED: Sodium Chloride 0.9% 10 ML Syringe FLUSH PRN (12:25)
[2019-11-14] MEDS ORDERED: Sodium Chloride 0.9% 2.5 ML Syringe FLUSH PRN (12:25)
[2019-11-14] MEDS ORDERED: Rocuronium 50 MG/5 ML Vial IVPUSH ONE (12:35)
[2019-11-14] MEDS ORDERED: Etomidate 2 MG/ML 20 ML SDV IVPUSH ONE (12:36)
[2019-11-14] MEDS ORDERED: propofoL 100 ML ONE ×2 (12:39→13:26)
[2019-11-14] MEDS ORDERED: propofoL 100 ML IV SCH (12:43)
[2019-11-14 13:07] LABS: BLOOD UREA NITROGEN,BUN 27 mg/dL (7.0-18.0); CARBON DIOXIDE,CO2 28.1 mmol/L (21.0-32.0); CHLORIDE,CL 91 mmol/L (98-107); GLUCOSE RANDOM 103 mg/dL (74-106); SODIUM,NA 128 mmol/L (136-148)
--- NOTE | 2019-11-14 13:12 | CR ---
Chest: This frontal view of the chest was obtained. Comparison: Prior chest x-ray of 06/18/18. Heart felt to be slightly enlarged. Pulmonary vessels may be mildly congested. Endotracheal tube is seen. Tip lies approximately 2.7 cm from the suzie. Nasogastric tube is noted. Distal end not seen on this exam due to technique. Impression: 1. Possible CHF. 2. Tip of endotracheal tube 2.7 cm from the suzie. 3. Termination of nasogastric tube not seen on this exam due to film technique. Diagnostic code #3 This report was dictated in MDT
--- NOTE | 2019-11-14 13:24 | EDM.PDOC ---
ED HPI GENERAL MEDICAL PROBLEM - General Chief Complaint: Respiratory Problem Stated Complaint: TROUBLE BREATHING/SWELLING Time Seen by Provider: 11/14/19 14:21 Source of Information: Reports: Patient History Limitations: Reports: No Limitations - History of Present Illness INITIAL COMMENTS - FREE TEXT/NARRATIVE: Patient is a 79-year-old male with a past medical history of COPD, CHF, CAD, hypertension presenting with a chief complaint of difficulty breathing. Per EMS , they found the patient to be in respiratory distress and stating that he had been feeling increasingly short of breath over the past few days. The patient history is limited secondary to patient's difficulty breathing. Further information was found out from over the phone after patient had been evaluated and treated. The patient's states that he has been short of breath for some time several months even. Shortness of breath worsened today. Patient does not have any fevers or cough. Patient has no sick contacts. Patient has no recent travels. EMS applied nonrebreather with minimal improvement. Pmhx: Per HPI Pshx: Per chart Family Hx: noncontributory Smoking history? Previous smoker Etoh use? none Drug use? none Comprehensive review of systems unable to be obtained by patient secondary to medical condition. I have reviewed the triage vital signs Const: Toxic in appearance with lethargy and increased work of breathing. Eyes: PERRL, no conjunctival injection HENT: JVD noted. NCAT, Neck supple without meningismus CV: RRR, upper and lower extremities were diffusely edematous but demonstrated good radial pulses bilaterally. Patient's hands were cold to the touch RESP: Diffuse rales on lung examination. Severe respiratory distress with retractions and accessory muscle usage. GI: Diffuse edema to the abdominal wall. Soft, non-tender, non-distended, no masses MSK: No gross deformities appreciated Skin: Warm, dry. No rashes Neuro: Alert, job setter honing II-XII grossly intact. Sensation and motor function of extremities grossly intact. Psych: Appropriate mood and affect Assessment and plan: Patient is a 79-year-old male presenting with shortness of breath. The shortness of breath is likely secondary to CHF exacerbation given the patient's edematous status and chest x-ray results. Labs were reviewed and consistent with CHF exacerbation. Also considering differential is infectious etiology such as pneumonia, COPD exacerbation or coronavirus. These are less likely given the patient's clinical picture however since the patient required intubation, the coronavirus test was sent. Patient's hospital course was complicated by respiratory failure. Patient was never hypoxic during ER stay. Patient was initially instituted on the BiPAP for respiratory support however the patient continued to decline becoming more lethargic and unable to answer questions or protect his airway. Therefore, the decision was made to intubate the patient. Intubation was successful in part first-pass. No evidence of aspiration. Patient placed on propofol for sedation. Nitro was initially hung but never given the patient's blood pressure improved down to the systolic 130s. Patient will be transferred to [facility] for ICU level of care, diuresis , respiratory support. I discussed in length with the patient's daughter Carrie, as well as granddaughter over the phone regarding the patient's status, potential prognosis, interventions performed. Answered all her questions. They confirmed understanding. Procedure note: Endotracheal intubation PHYSICIAN: Dr. Reed PREOPERATIVE DIAGNOSIS respiratory failure POSTOPERATIVE DIAGNOSIS same PROCEDURE PERFORMED Endotracheal Intubation. ANESTHESIA 30 mg of Etomidate; 100 mg of Rocuronium ESTIMATED BLOOD LOSS None. SPECIMENS None. COMPLICATIONS None. INDICATIONS FOR PROCEDURE The patient is a 79-year-old male s/p respiratory failure. The patient is in need of airway maintenance and protection. DESCRIPTION OF PROCEDURE IN DETAIL The patient was lying in the supine position. Preoxygenation via BiPAP no further BVM utilized. The patient had continuous cardiac as well as pulse oximetry monitoring during the procedure. A number size 4 video laryngoscope was used to directly visualize the vocal cords. A_8.0 mm endotracheal tube was visualized advancing between the cords to a level of 25 cm at the teeth. The sylette was then removed and discarded. Tube placement was also noted by fogging in the tube, equal and bilateral breath sounds, no sounds over the epigastrium, and end-tidalcolorimetric monitoring. The cuff was then inflated with 10ccs of air and the tube secured using acommercially available device. A good pulse oximetry wave form was seen on the monitor throughoutthe procedure. The patient was then connected to the ventilator at a tidal volume of 500; rate of 16; FiO2 of 40%; and PEEP of 5. A portable chest x-ray confirmed placement. An 18 [place] OG tube was also inserted under video laryngoscopy. Continued sedation will be provided by propofol continuous infusion titrated to a Franklin score of 2 to 3. The patient tolerated the procedure well Procedure note: Ultrasound-guided IV Physician: Dr. Reed Indications: Difficult IV access Description of procedure: Ultrasound was used to find a vein in the right bicep area. The vein was visualized and a 20-gauge IV was inserted with good blood return and appropriate flush. The patient tolerated the procedure well with no immediate complications. IV was secured using Tegaderm and tape. Critical Care Procedure Note Authorized and Performed by: Dr. Reed Total critical care time: Approximately 105 minutes Due to a high probability of clinically significant, life threatening deterioration, the patient required my highest level of preparedness to intervene emergently and I personally spent this critical care time directly and personally managing the patient. This critical care time included obtaining a history; examining the patient; pulse oximetry; ordering and review of studies ; arranging urgent treatment with development of a management plan; evaluation of patient's response to treatment; frequent reassessment; and, discussions with other providers. This critical care time was performed to assess and manage the high probability of imminent, life-threatening deterioration that could result in multi-organ failure. It was exclusive of separately billable procedures and treating other patients and teaching time. Please see MDM section and the rest of the note for further information on patient assessment and treatment. - Related Data Allergies Allergy/AdvReac Type Severity Reaction Status Date / Time No Known Allergies Allergy Verified 11/14/19 12:34 Home Meds: Home Meds Finasteride 5 mg PO DAILY 04/23/19 [History] Fludrocortisone [Florinef] 0.25 tab PO ASDIRECTED 04/23/19 [History] Furosemide 40 mg PO DAILY 04/23/19 [History] Metoprolol Succinate [Toprol XL 50mg] 50 mg PO BEDTIME 04/23/19 [History] Potassium Chloride 10 meq PO ASDIRECTED 04/23/19 [History] Rosuvastatin [Crestor] 20 mg PO ASDIRECTED 04/23/19 [History] Albuterol [Ventolin HFA] 2 puff INH ASDIRECTED PRN 09/07/19 [History] Aspirin [Low Dose Aspirin EC] 81 mg PO DAILY 09/07/19 [History] Carbidopa/Levodopa [Carbidopa-Levo ER 50-200] 1 tab PO BID 09/07/19 [History] Indomethacin 1 tab PO BID PRN 09/07/19 [History] Nitroglycerin 1 tab SL ASDIRECTED PRN 09/07/19 [History] Past Medical History HEENT History: Reports: Cataract Other HEENT History: wears glasses for reading, Cardiovascular History: Reports: Arrhythmia (h/o of SVT and V. tach), CAD ( stress test 1 1/2 years ago was normal), Heart Murmur (aortic valve sclerosis), High Cholesterol, Hypertension, PVD (s/p lt. carotid endarterectomy), SOB on Exertion (after one block), Syncope Respiratory History: Reports: COPD (severe, does not take inhalers, he thinks they do not help) Other Respiratory History: states seldom uses inhaler Gastrointestinal History: Reports: GERD Genitourinary History: Reports: BPH, Prostate Disorder Musculoskeletal History: Reports: Arthritis, Back Pain, Chronic, Gout Neurological History: Reports: Parkinson's Psychiatric History: Reports: None Endocrine/Metabolic History: Reports: None Hematologic History: Reports: None Immunologic History: Reports: None Oncologic (Cancer) History: Reports: None Dermatologic History: Reports: None - Infectious Disease History Infectious Disease History: Reports: Chicken Pox, Measles, Mumps - Past Surgical History Head Surgeries/Procedures: Reports: None HEENT Surgical History: Reports: Cataract Surgery Cardiovascular Surgical History: Reports: Carotid Endarterectomy Other Cardiovascular Surgeries/Procedures: angioplasty, lt carotid thromboendarterectomy 07/20 Respiratory Surgical History: Reports: None GI Surgical History: Reports: None Male Surgical History: Reports: None Endocrine Surgical History: Reports: None Neurological Surgical History: Reports: None Musculoskeletal Surgical History: Reports: None Oncologic Surgical History: Reports: None Dermatological Surgical History: Reports: None Social & Family History - Family History Family Medical History: Noncontributory - Caffeine Use Caffeine Use: Reports: Coffee ED ROS GENERAL - Review of Systems Review Of Systems: See Below ED EXAM, GENERAL - Physical Exam Exam: See Below Course - Vital Signs Last Recorded V/S: Last Vital Signs Temp Pulse 98 11/14/19 12:07 Resp 38 H 11/14/19 12:07 BP 190/97 H 11/14/19 12:07 Pulse Ox 99 11/14/19 12:07 - Orders/Labs/Meds Orders: Active Orders 24 hr Category Date Time Status BIPAP [RT BiPAP/CPAP] [RC] ASDIRECTED Care 11/14/19 12:24 Active Cardiac Monitoring [RC] . DIRECTED Care 11/14/19 12:25 Active EKG Documentation Completion [RC] STAT Care 11/14/19 12:25 Active RT Ventilator, Adult [RC] ASDIRECTED Care 11/14/19 13:01 Active CORONAVIRUS COVID-19 PCR PHL Stat Lab 11/14/19 13:15 Received CULTURE URINE [RM] Stat Lab 11/14/19 13:10 Received Nitroglycerin/D5W [Nitroglycerin 25 MG/D5W 250 ML] Med 11/14/19 12:15 Active 25 mg in 250 ml IV TITRATE Sodium Chloride 0.9% [Saline Flush] Med 11/14/19 12:25 Active 10 ml FLUSH ASDIRECTED PRN Sodium Chloride 0.9% [Saline Flush] Med 11/14/19 12:25 Active 2.5 ml FLUSH ASDIRECTED PRN Isolation [COMM] Routine Oth 11/14/19 12:31 Active Isolation [COMM] Routine Oth 11/14/19 12:56 Active Isolation [COMM] Routine Oth 11/14/19 13:27 Active Saline Lock Insert [OM.PC] Stat Oth 11/14/19 12:25 Ordered Medication Orders Nitroglycerin/Dextrose (Nitroglycerin 25 Mg/D5w 250 Ml) 25 mg in 250 mls @ 60 mls/hr IV TITRATE FARIDA Sodium Chloride (Saline Flush) 10 ml FLUSH ASDIRECTED PRN PRN Reason: Keep Vein Open Sodium Chloride (Saline Flush) 2.5 ml FLUSH ASDIRECTED PRN PRN Reason: Keep Vein Open Labs: Laboratory Tests 11/14/19 11/14/19 11/14/19 Range/Units 12:35 12:35 12:35 WBC 4.29 (4.0-11.0) K/uL RBC 3.93 L (4.50-5.90) M/uL Hgb 11.4 L (13.0-17.0) g/dL Hct 35.1 L (38.0-50.0) % MCV 89.3 (80.0-98.0) fL MCH 29.0 (27.0-32.0) pg MCHC 32.5 (31.0-37.0) g/dL RDW Std Deviation 51.3 (28.0-62.0) fl RDW Coeff of Sonya 16 H (11.0-15.0) % Plt Count 134 L (150-400) K/uL MPV 10.00 (7.40-12.00) fL Neut % (Auto) 76.0 (48.0-80.0) % Lymph % (Auto) 14.9 L (16.0-40.0) % [place] % (Auto) 8.6 (0.0-15.0) % Eos % (Auto) 0.5 (0.0-7.0) % Baso % (Auto) 0.0 (0.0-1.5) % Neut # (Auto) 3.3 (1.4-5.7) K/uL Lymph # (Auto) 0.6 (0.6-2.4) K/uL [place] # (Auto) 0.4 (0.0-0.8) K/uL Eos # (Auto) 0.0 (0.0-0.7) K/uL Baso # (Auto) 0.0 (0.0-0.1) K/uL Nucleated RBC % 0.0 /100WBC Nucleated RBCs # 0 K/uL VBG pH (7.31-7.41) VBG pCO2 (35-45) mmHG VBG pO2 (30-40) mmHG VBG HCO3 (22-30) mEq/L VBG Total CO2 (41-51) mmol/L VBG Base Excess (-3.0-3.0) Sodium 128 L (136-148) mmol/L Potassium 4.0 (3.5-5.1) mmol/L Chloride 91 L (98-107) mmol/L Carbon Dioxide 28.1 (21.0-32.0) mmol/L BUN 27 H (7.0-18.0) mg/dL Creatinine 1.4 H (0.8-1.3) mg/dL Est Cr Clr Drug Dosing TNP Estimated GFR (MDRD) 48.9 ml/min Glucose 103 (74-106) mg/dL Calcium 9.3 (8.5-10.1) mg/dL Total Bilirubin 1.2 H (0.2-1.0) mg/dL AST 37 (15-37) IU/L ALT 10 L (14-63) IU/L Alkaline Phosphatase 135 H (46-116) U/L Lactate Dehydrogenase (81-234) U/L Troponin I < 0.050 (0.000-0.056) ng/mL C-Reactive Protein (0.00-0.90) mg/dL B-Natriuretic Peptide 1996 H (<100) PG/ML Total Protein 8.2 (6.4-8.2) g/dL Albumin 3.2 L (3.4-5.0) g/dL Globulin 5.0 H (2.6-4.0) g/dL Albumin/Globulin Ratio 0.6 L (0.9-1.6) Urine Color Urine Appearance Urine pH (5.0-8.0) Ur Specific [place] (1.001-1.035) Urine Protein (NEGATIVE) mg/dL Urine Glucose (UA) (NEGATIVE) mg/dL Urine Ketones (NEGATIVE) mg/dL Urine Occult Blood (NEGATIVE) Urine Nitrite (NEGATIVE) Urine Bilirubin (NEGATIVE) Urine Urobilinogen (<2.0) EU/dL Ur Leukocyte Esterase (NEGATIVE) Urine RBC (0-2/HPF) Urine WBC (0-5/HPF) Ur Epithelial Cells (NONE-FEW) Urine Bacteria (NEGATIVE) Urine Mucus (NONE-MOD) 11/14/19 11/14/19 11/14/19 Range/Units 12:35 13:08 13:10 WBC (4.0-11.0) K/uL RBC (4.50-5.90) M/uL Hgb (13.0-17.0) g/dL Hct (38.0-50.0) % MCV (80.0-98.0) fL MCH (27.0-32.0) pg MCHC (31.0-37.0) g/dL RDW Std Deviation (28.0-62.0) fl RDW Coeff of Sonya (11.0-15.0) % Plt Count (150-400) K/uL MPV (7.40-12.00) fL Neut % (Auto) (48.0-80.0) % Lymph % (Auto) (16.0-40.0) % [place] % (Auto) (0.0-15.0) % Eos % (Auto) (0.0-7.0) % Baso % (Auto) (0.0-1.5) % Neut # (Auto) (1.4-5.7) K/uL Lymph # (Auto) (0.6-2.4) K/uL [place] # (Auto) (0.0-0.8) K/uL Eos # (Auto) (0.0-0.7) K/uL Baso # (Auto) (0.0-0.1) K/uL Nucleated RBC % /100WBC Nucleated RBCs # K/uL VBG pH 7.30 L (7.31-7.41) VBG pCO2 51 H (35-45) mmHG VBG pO2 50 H (30-40) mmHG VBG HCO3 25 (22-30) mEq/L VBG Total CO2 24 L (41-51) mmol/L VBG Base Excess -1.9 (-3.0-3.0) Sodium (136-148) mmol/L Potassium (3.5-5.1) mmol/L Chloride (98-107) mmol/L Carbon Dioxide (21.0-32.0) mmol/L BUN (7.0-18.0) mg/dL Creatinine (0.8-1.3) mg/dL Est Cr Clr Drug Dosing Estimated GFR (MDRD) ml/min Glucose (74-106) mg/dL Calcium (8.5-10.1) mg/dL Total Bilirubin (0.2-1.0) mg/dL AST (15-37) IU/L ALT (14-63) IU/L Alkaline Phosphatase (46-116) U/L Lactate Dehydrogenase 218 (81-234) U/L Troponin I (0.000-0.056) ng/mL C-Reactive Protein 1.30 H (0.00-0.90) mg/dL B-Natriuretic Peptide (<100) PG/ML Total Protein (6.4-8.2) g/dL Albumin (3.4-5.0) g/dL Globulin (2.6-4.0) g/dL Albumin/Globulin Ratio (0.9-1.6) Urine Color YELLOW Urine Appearance HAZY Urine pH 6.0 (5.0-8.0) Ur Specific [place] 1.015 (1.001-1.035) Urine Protein NEGATIVE (NEGATIVE) mg/dL Urine Glucose (UA) NEGATIVE (NEGATIVE) mg/dL Urine Ketones NEGATIVE (NEGATIVE) mg/dL Urine Occult Blood NEGATIVE (NEGATIVE) Urine Nitrite NEGATIVE (NEGATIVE) Urine Bilirubin NEGATIVE (NEGATIVE) Urine Urobilinogen 0.2 (<2.0) EU/dL Ur Leukocyte Esterase SMALL H (NEGATIVE) Urine RBC 0-2 (0-2/HPF) Urine WBC 6-8 (0-5/HPF) Ur Epithelial Cells FEW (NONE-FEW) Urine Bacteria 1+ H (NEGATIVE) Urine Mucus LIGHT (NONE-MOD) Meds: Medications Generic Name Dose Route Start Last Admin Trade Name Freq PRN Reason Stop Dose Admin Nitroglycerin/Dextrose 25 mg in 250 mls @ 60 mls/hr 11/14/19 12:15 Nitroglycerin 25 Mg/D5w 250 Ml IV TITRATE FARIDA 100 MCG/MIN Sodium Chloride 10 ml 11/14/19 12:25 Saline Flush FLUSH ASDIRECTED PRN Keep Vein Open Sodium Chloride 2.5 ml 11/14/19 12:25 Saline Flush FLUSH ASDIRECTED PRN Keep Vein Open Discontinued Medications Generic Name Dose Route Start Last Admin Trade Name Freq PRN Reason Stop Dose Admin Propofol Confirm 11/14/19 12:39 Diprivan 100 Ml Administered 11/14/19 12:40 Dose 100 mls @ as directed .ROUTE .STK-MED ONE Propofol Confirm 11/14/19 13:26 Diprivan 100 Ml Administered 11/14/19 13:27 Dose 100 mls @ as directed .ROUTE .STK-MED ONE Departure - Departure Time of Disposition: 13:23 Disposition: DC/Tfer to Acute Hospital 02 Clinical Impression: Congestive heart failure, Respiratory failure - Discharge Information Referrals: Mehran Ornelas MD [Primary Care Provider] - Forms: ED Department Discharge Sepsis Event Note - Evaluation Sepsis Screening Result: No Definite Risk - Focused Exam Vital Signs: Vital Signs Pulse Resp BP Pulse Ox 11/14/19 12:07 98 38 H 190/97 H 99 Date Exam was Performed: 11/14/19 Time Exam was Performed: 14:21 - My Orders Last 24 Hours: My Active Orders 11/14/19 12:24 BIPAP [RT BiPAP/CPAP] [RC] ASDIRECTED 11/14/19 13:01 RT Ventilator, Adult [RC] ASDIRECTED 11/14/19 13:27 Isolation [COMM] Routine - Assessment/Plan Last 24 Hours: My Active Orders 11/14/19 12:24 BIPAP [RT BiPAP/CPAP] [RC] ASDIRECTED 11/14/19 13:01 RT Ventilator, Adult [RC] ASDIRECTED 11/14/19 13:27 Isolation [COMM] Routine
[2019-11-14 13:25] VITALS: BP 190/97; PULSE 98
--- NOTE | 2019-11-14 13:41 | CR ---
Abdomen: Single abdominal x-ray centered to the left hemidiaphragm was obtained. Tip of nasogastric tube is seen which lies within the stomach. Other portions of the study are stable from prior chest x-ray performed earlier on the same day. Impression: 1. Tip of nasogastric tube within the stomach. Diagnostic code #2 This report was dictated in MDT
== END 2019-11-14 13:48 ==
LOC: MW.ED 12:04
DX: I11.0 Hypertensive heart disease with heart failure (principal); I50.9 Heart failure, unspecified; J96.90 Respiratory failure, unspecified, unspecified whether with hypoxia or hypercapnia; M10.9 Gout, unspecified; G20 Parkinson's disease; I25.10 Atherosclerotic heart disease of native coronary artery without angina pectoris; E78.00 Pure hypercholesterolemia, unspecified; J44.9 Chronic obstructive pulmonary disease, unspecified; Z87.891 Personal history of nicotine dependence; Z79.82 Long term (current) use of aspirin; Z79.899 Other long term (current) drug therapy; Z20.828 Contact with and (suspected) exposure to other viral communicable diseases
CPT/HCPCS: 31500; 36415; 43752; 51702; 71045; 74018; 80053; 81001; 82803; 83615; 83880; 84484; 85025; 86140; 87086; 87088; 87186; 87804; 93005; 94660; 99291; 99292; J2704; J3490; U0002; 94002

== ENCOUNTER 2019-12-19 11:28 | Inpatient (IN) | payer MEDICARE, OTHER ==
--- NOTE | 2019-12-19 11:38 | EDM.PDOC ---
ED HPI GENERAL MEDICAL PROBLEM - General Chief Complaint: Respiratory Problem Stated Complaint: SHORTNESS OF BREATH Time Seen by Provider: 12/19/19 11:30 Source of Information: Reports: Patient History Limitations: Reports: No Limitations - History of Present Illness INITIAL COMMENTS - FREE TEXT/NARRATIVE: Is a 79-year-old male well-known to staff brought in because his visiting home nurse found him to be unable to get up out of his chair on his own and with oxygen saturation in the 80s on 2 L nasal cannula. Patient is O2 dependent COPD here. He was admitted to the hospital approximately 1 month ago which time he needed to be intubated. Patient has a 10 pound weight gain since then. Denies any fever chills or having any cough. Patient denies any chest pain or pressure. He is struggling to breathe but denies any nausea vomiting or diarrhea. He has had no bloody or tarry stools. Patient is on no blood thinners. - Related Data Allergies Allergy/AdvReac Type Severity Reaction Status Date / Time No Known Allergies Allergy Verified 12/19/19 15:02 Home Meds: Home Meds Finasteride 5 mg PO DAILY 04/23/19 [History] Fludrocortisone [Florinef] 0.05 mg PO DAILY 04/23/19 [History] Metoprolol Succinate [Toprol XL 50mg] 50 mg PO BEDTIME 04/23/19 [History] Rosuvastatin [Crestor] 20 mg PO DAILY 04/23/19 [History] Albuterol [Ventolin HFA] 2 puff INH ASDIRECTED PRN 09/07/19 [History] Aspirin [Low Dose Aspirin EC] 81 mg PO DAILY 09/07/19 [History] Carbidopa/Levodopa [Carbidopa-Levo ER 50-200] 50 - 200 mg PO BID 09/07/19 [ History] Nitroglycerin 1 tab SL ASDIRECTED PRN 09/07/19 [History] Pantoprazole Sodium [Protonix] 20 mg PO DAILY 12/19/19 [History] Furosemide 40 mg PO BID #0 12/23/19 [Rx] Metoprolol Succinate [Toprol XL] 50 mg PO BEDTIME tab.er 12/23/19 [Rx] Potassium Chloride [Klor-Con M20] 20 meq PO BID #0 12/23/19 [Rx] Past Medical History HEENT History: Reports: Cataract Other HEENT History: wears glasses for reading, Cardiovascular History: Reports: Arrhythmia (h/o of SVT and V. tach), CAD ( stress test 1 1/2 years ago was normal), Heart Murmur (aortic valve sclerosis), High Cholesterol, Hypertension, PVD (s/p lt. carotid endarterectomy), SOB on Exertion (after one block), Syncope Respiratory History: Reports: COPD (severe, does not take inhalers, he thinks they do not help) Other Respiratory History: states seldom uses inhaler Gastrointestinal History: Reports: GERD Genitourinary History: Reports: BPH, Prostate Disorder Musculoskeletal History: Reports: Arthritis, Back Pain, Chronic, Gout Neurological History: Reports: Parkinson's Psychiatric History: Reports: None Endocrine/Metabolic History: Reports: None Hematologic History: Reports: None Immunologic History: Reports: None Oncologic (Cancer) History: Reports: None Dermatologic History: Reports: None - Infectious Disease History Infectious Disease History: Reports: Chicken Pox, Measles, Mumps - Past Surgical History Head Surgeries/Procedures: Reports: None HEENT Surgical History: Reports: Cataract Surgery Cardiovascular Surgical History: Reports: Carotid Endarterectomy Other Cardiovascular Surgeries/Procedures: angioplasty, lt carotid thromboendarterectomy 07/20 Respiratory Surgical History: Reports: None GI Surgical History: Reports: None Male Surgical History: Reports: None Endocrine Surgical History: Reports: None Neurological Surgical History: Reports: None Musculoskeletal Surgical History: Reports: None Oncologic Surgical History: Reports: None Dermatological Surgical History: Reports: None Social & Family History - Family History Family Medical History: Noncontributory - Caffeine Use Caffeine Use: Reports: Coffee ED ROS GENERAL - Review of Systems Review Of Systems: Comprehensive ROS is negative, except as noted in HPI. ED EXAM, GENERAL - Physical Exam Exam: See Below Exam Limited By: No Limitations General Appearance: Alert, No Apparent Distress Head: Normocephalic Neck: Normal Inspection, Supple, Non-Tender Respiratory/Chest: No Respiratory Distress, Lungs Clear, Normal Breath Sounds, Chest Non-Tender Cardiovascular: Regular Rate, Rhythm, No Edema, No JVD GI/Abdominal: Normal Bowel Sounds, Soft, Non-Tender, No Organomegaly Back Exam: Normal Inspection, Full Range of Motion Extremities: Normal Inspection, Normal Range of Motion, No Pedal Edema Neurological: Alert, Oriented Psychiatric: Normal Affect Skin Exam: Warm, Dry, Normal Color EKG INTERPRETATION Rhythm: NSR ST-T: Normal Course - Vital Signs Text/Narrative:: Patient had elevated troponin level. He is being admitted for acute coronary syndrome. He is currently free of chest pain.'s have remained stable. Last Recorded V/S: Last Vital Signs Temp 36.9 C 12/23/19 12:00 Pulse 98 12/23/19 12:00 Resp 24 H 12/23/19 12:00 BP 127/69 12/23/19 12:00 Pulse Ox 94 L 12/23/19 12:00 - Orders/Labs/Meds Labs: Laboratory Tests 12/19/19 12/19/19 12/19/19 Range/Units 12:00 12:00 12:00 WBC 3.34 L (4.0-11.0) K/uL RBC 3.03 L (4.50-5.90) M/uL Hgb 8.8 L (13.0-17.0) g/dL Hct 27.9 L (38.0-50.0) % MCV 92.1 (80.0-98.0) fL MCH 29.0 (27.0-32.0) pg MCHC 31.5 (31.0-37.0) g/dL RDW Std Deviation 57.0 (28.0-62.0) fl RDW Coeff of Sonya 17 H (11.0-15.0) % Plt Count 130 L (150-400) K/uL MPV 9.90 (7.40-12.00) fL Neut % (Auto) 73.9 (48.0-80.0) % Lymph % (Auto) 15.9 L (16.0-40.0) % [place] % (Auto) 9.6 (0.0-15.0) % Eos % (Auto) 0.3 (0.0-7.0) % Baso % (Auto) 0.3 (0.0-1.5) % Neut # (Auto) 2.5 (1.4-5.7) K/uL Lymph # (Auto) 0.5 L (0.6-2.4) K/uL [place] # (Auto) 0.3 (0.0-0.8) K/uL Eos # (Auto) 0.0 (0.0-0.7) K/uL Baso # (Auto) 0.0 (0.0-0.1) K/uL Nucleated RBC % 0.0 /100WBC Nucleated RBCs # 0 K/uL D-Dimer, Quantitative 1.05 H (0.0-0.50) mg/L FEU Lactate 1.5 (0.20-2.00) mmol/L Sodium (136-148) mmol/L Potassium (3.5-5.1) mmol/L Chloride (98-107) mmol/L Carbon Dioxide (21.0-32.0) mmol/L BUN (7.0-18.0) mg/dL Creatinine (0.8-1.3) mg/dL Est Cr Clr Drug Dosing Estimated GFR (MDRD) ml/min Glucose (74-106) mg/dL Calcium (8.5-10.1) mg/dL Phosphorus (2.6-4.7) mg/dL Magnesium (1.8-2.4) mg/dL Total Bilirubin (0.2-1.0) mg/dL AST (15-37) IU/L ALT (14-63) IU/L Alkaline Phosphatase (46-116) U/L Troponin I (0.000-0.056) ng/mL B-Natriuretic Peptide (<100) PG/ML Total Protein (6.4-8.2) g/dL Albumin (3.4-5.0) g/dL Globulin (2.6-4.0) g/dL Albumin/Globulin Ratio (0.9-1.6) Urine Color Urine Appearance Urine pH (5.0-8.0) Ur Specific [place] (1.001-1.035) Urine Protein (NEGATIVE) mg/dL Urine Glucose (UA) (NEGATIVE) mg/dL Urine Ketones (NEGATIVE) mg/dL Urine Occult Blood (NEGATIVE) Urine Nitrite (NEGATIVE) Urine Bilirubin (NEGATIVE) Urine Urobilinogen (<2.0) EU/dL Ur Leukocyte Esterase (NEGATIVE) U Hyaline Cast (Auto) (0-2/LPF) Urine RBC (0-2/HPF) Urine WBC (0-5/HPF) Ur Epithelial Cells (NONE-FEW) Urine Bacteria (NEGATIVE) Urine Mucus (NONE-MOD) SARS-CoV-2 RNA (RT-PCR) (NEGATIVE) 12/19/19 12/19/19 12/19/19 Range/Units 12:00 12:00 13:15 WBC (4.0-11.0) K/uL RBC (4.50-5.90) M/uL Hgb (13.0-17.0) g/dL Hct (38.0-50.0) % MCV (80.0-98.0) fL MCH (27.0-32.0) pg MCHC (31.0-37.0) g/dL RDW Std Deviation (28.0-62.0) fl RDW Coeff of Sonya (11.0-15.0) % Plt Count (150-400) K/uL MPV (7.40-12.00) fL Neut % (Auto) (48.0-80.0) % Lymph % (Auto) (16.0-40.0) % [place] % (Auto) (0.0-15.0) % Eos % (Auto) (0.0-7.0) % Baso % (Auto) (0.0-1.5) % Neut # (Auto) (1.4-5.7) K/uL Lymph # (Auto) (0.6-2.4) K/uL [place] # (Auto) (0.0-0.8) K/uL Eos # (Auto) (0.0-0.7) K/uL Baso # (Auto) (0.0-0.1) K/uL Nucleated RBC % /100WBC Nucleated RBCs # K/uL D-Dimer, Quantitative (0.0-0.50) mg/L FEU Lactate (0.20-2.00) mmol/L Sodium 131 L (136-148) mmol/L Potassium 4.1 (3.5-5.1) mmol/L Chloride 93 L (98-107) mmol/L Carbon Dioxide 27.2 (21.0-32.0) mmol/L BUN 34 H (7.0-18.0) mg/dL Creatinine 2.0 H (0.8-1.3) mg/dL Est Cr Clr Drug Dosing TNP Estimated GFR (MDRD) 32.4 ml/min Glucose 101 (74-106) mg/dL Calcium 8.8 (8.5-10.1) mg/dL Phosphorus (2.6-4.7) mg/dL Magnesium (1.8-2.4) mg/dL Total Bilirubin 1.5 H (0.2-1.0) mg/dL AST 34 (15-37) IU/L ALT 12 L (14-63) IU/L Alkaline Phosphatase 148 H (46-116) U/L Troponin I < 0.050 (0.000-0.056) ng/mL B-Natriuretic Peptide 1128 H (<100) PG/ML Total Protein 8.6 H (6.4-8.2) g/dL Albumin 3.1 L (3.4-5.0) g/dL Globulin 5.5 H (2.6-4.0) g/dL Albumin/Globulin Ratio 0.6 L (0.9-1.6) Urine Color Urine Appearance Urine pH (5.0-8.0) Ur Specific [place] (1.001-1.035) Urine Protein (NEGATIVE) mg/dL Urine Glucose (UA) (NEGATIVE) mg/dL Urine Ketones (NEGATIVE) mg/dL Urine Occult Blood (NEGATIVE) Urine Nitrite (NEGATIVE) Urine Bilirubin (NEGATIVE) Urine Urobilinogen (<2.0) EU/dL Ur Leukocyte Esterase (NEGATIVE) U Hyaline Cast (Auto) (0-2/LPF) Urine RBC (0-2/HPF) Urine WBC (0-5/HPF) Ur Epithelial Cells (NONE-FEW) Urine Bacteria (NEGATIVE) Urine Mucus (NONE-MOD) SARS-CoV-2 RNA (RT-PCR) NEGATIVE (NEGATIVE) 12/19/19 12/20/19 12/20/19 Range/Units 22:55 06:22 06:22 WBC 2.24 L (4.0-11.0) K/uL RBC 3.00 L (4.50-5.90) M/uL Hgb 8.6 L (13.0-17.0) g/dL Hct 27.3 L (38.0-50.0) % MCV 91.0 (80.0-98.0) fL MCH 28.7 (27.0-32.0) pg MCHC 31.5 (31.0-37.0) g/dL RDW Std Deviation 56.1 (28.0-62.0) fl RDW Coeff of Sonya 17 H (11.0-15.0) % Plt Count 115 L (150-400) K/uL MPV 10.10 (7.40-12.00) fL Neut % (Auto) 81.7 H (48.0-80.0) % Lymph % (Auto) 8.5 L (16.0-40.0) % [place] % (Auto) 9.8 (0.0-15.0) % Eos % (Auto) 0.0 (0.0-7.0) % Baso % (Auto) 0.0 (0.0-1.5) % Neut # (Auto) 1.8 (1.4-5.7) K/uL Lymph # (Auto) 0.2 L (0.6-2.4) K/uL [place] # (Auto) 0.2 (0.0-0.8) K/uL Eos # (Auto) 0.0 (0.0-0.7) K/uL Baso # (Auto) 0.0 (0.0-0.1) K/uL Nucleated RBC % 0.7 /100WBC Nucleated RBCs # 0 K/uL D-Dimer, Quantitative (0.0-0.50) mg/L FEU Lactate (0.20-2.00) mmol/L Sodium 134 L (136-148) mmol/L Potassium 3.9 (3.5-5.1) mmol/L Chloride 95 L (98-107) mmol/L Carbon Dioxide 28.4 (21.0-32.0) mmol/L BUN 38 H (7.0-18.0) mg/dL Creatinine 2.0 H (0.8-1.3) mg/dL Est Cr Clr Drug Dosing 32.87 Estimated GFR (MDRD) 32.4 ml/min Glucose 140 H (74-106) mg/dL Calcium 8.7 (8.5-10.1) mg/dL Phosphorus 4.3 (2.6-4.7) mg/dL Magnesium 2.3 (1.8-2.4) mg/dL Total Bilirubin 1.2 H (0.2-1.0) mg/dL AST 32 (15-37) IU/L ALT 13 L (14-63) IU/L Alkaline Phosphatase 137 H (46-116) U/L Troponin I (0.000-0.056) ng/mL B-Natriuretic Peptide (<100) PG/ML Total Protein 7.7 (6.4-8.2) g/dL Albumin 2.8 L (3.4-5.0) g/dL Globulin 4.9 H (2.6-4.0) g/dL Albumin/Globulin Ratio 0.6 L (0.9-1.6) Urine Color YELLOW Urine Appearance CLEAR Urine pH 5.0 (5.0-8.0) Ur Specific [place] 1.020 (1.001-1.035) Urine Protein NEGATIVE (NEGATIVE) mg/dL Urine Glucose (UA) NEGATIVE (NEGATIVE) mg/dL Urine Ketones NEGATIVE (NEGATIVE) mg/dL Urine Occult Blood TRACE-INTACT H (NEGATIVE) Urine Nitrite NEGATIVE (NEGATIVE) Urine Bilirubin NEGATIVE (NEGATIVE) Urine Urobilinogen 0.2 (<2.0) EU/dL Ur Leukocyte Esterase NEGATIVE (NEGATIVE) U Hyaline Cast (Auto) 0-1 (0-2/LPF) Urine RBC 0-1 (0-2/HPF) Urine WBC 0-1 (0-5/HPF) Ur Epithelial Cells RARE (NONE-FEW) Urine Bacteria FEW (NEGATIVE) Urine Mucus LIGHT (NONE-MOD) SARS-CoV-2 RNA (RT-PCR) (NEGATIVE) Meds: Medications Discontinued Medications Generic Name Dose Route Start Last Admin Trade Name Freq PRN Reason Stop Dose Admin Acetaminophen 650 mg 12/19/19 14:23 12/22/19 03:19 Tylenol PO 650 mg Q4H PRN Administration Pain (Mild 1-3)/fever Albuterol/Ipratropium 3 ml 12/19/19 11:39 12/19/19 11:50 Duoneb 3.0-0.5 Mg/3 Ml NEB 12/19/19 11:40 3 ml ONETIME ONE Administration Albuterol/Ipratropium 3 ml 12/19/19 18:00 12/22/19 17:25 Duoneb 3.0-0.5 Mg/3 Ml NEB 3 ml Q4HRRT FARIDA Administration Albuterol/Ipratropium 3 ml 12/22/19 17:32 Duoneb 3.0-0.5 Mg/3 Ml NEB Q4HRRT PRN Shortness of Breath Artificial Tears 1 each 12/22/19 15:29 12/23/19 00:07 Refresh Plus 0.5% EYEBOTH 1 each Q4HR PRN Administration Dry Eyes Carbidopa/Levodopa 1 tab 12/19/19 21:00 12/23/19 08:15 Sinemet Cr 50-200 Mg PO 1 tab BID FARIDA Administration Finasteride 5 mg 12/20/19 09:00 12/23/19 08:14 Proscar PO 5 mg DAILY FARIDA Administration Fludrocortisone Acetate 0.05 mg 12/20/19 09:15 12/23/19 08:14 Florinef PO 0.05 mg DAILY FARIDA Administration Furosemide 40 mg 12/19/19 13:25 12/19/19 14:21 Lasix IVPUSH 12/19/19 13:26 40 mg NOW ONE Administration Furosemide 40 mg 12/19/19 22:00 12/22/19 06:04 Lasix IVPUSH 40 mg TID FARIDA Administration Furosemide 40 mg 12/22/19 14:00 12/23/19 08:14 Lasix PO 40 mg BIDDIURETIC FARIDA Administration Heparin Sodium (Porcine) 5,000 units 12/20/19 13:30 12/21/19 12:36 Heparin Sodium SUBCUT 5,000 units Q12H FARIDA Administration Magnesium Sulfate 2 gm/ Premix 50 mls @ 50 mls/hr 12/19/19 12:15 12/19/19 12: 13 IV 12/19/19 13:14 50 mls/hr ONETIME ONE Administration Methylprednisolone Sodium Succinate 125 mg 12/19/19 11:39 12/19/19 12:13 Solu-Medrol IV 12/19/19 11:40 125 mg ONETIME ONE Administration Metoprolol Succinate 25 mg 12/19/19 21:00 12/20/19 20:38 Toprol Xl PO 25 mg BEDTIME FARIDA Administration Metoprolol Succinate 50 mg 12/21/19 21:00 12/22/19 21:07 Toprol Xl PO 50 mg BEDTIME FARIDA Administration Metoprolol Tartrate 25 mg 12/21/19 08:02 12/21/19 11:25 Lopressor PO 12/21/19 08:03 25 mg ONETIME ONE Administration Ondansetron HCl 4 mg 12/19/19 14:23 Zofran IVPUSH Q4H PRN Nausea Potassium Chloride 40 meq 12/21/19 08:00 12/23/19 08:14 Klor-Con M20 PO 40 meq BID@0800,1200 FARIDA Administration Rivaroxaban 15 mg 12/21/19 17:30 12/22/19 17:30 Xarelto PO 15 mg WITHDINNER FARIDA Administration Rosuvastatin Calcium 20 mg 12/20/19 09:00 12/23/19 08:14 Crestor PO 20 mg DAILY FARIDA Administration Sodium Chloride 2.5 ml 12/19/19 14:23 Saline Flush FLUSH ASDIRECTED PRN Keep Vein Open Departure - Departure Time of Disposition: 12:00 Disposition: Admitted As Inpatient 66 Condition: Good Clinical Impression: Acute coronary syndrome with high troponin - Discharge Information Sepsis Event Note - Focused Exam Date Exam was Performed: 12/28/19 Time Exam was Performed: 00:17
[2019-12-19] MEDS ORDERED: methylPREDNISolone Sodium Succinate 125 MG/2 ML SDV IV ONE (11:39)
[2019-12-19] MEDS ORDERED: Albuterol/Ipratropium 3.0-0.5 MG/3 ML Neb Soln NEB ONE (11:39)
[2019-12-19] MEDS ORDERED: Magnesium Sulfate (4.06 MEQ/ML) 5 GM/10 ML SDV IV ONE (11:42)
[2019-12-19] MEDS ORDERED: Magnesium Sulfate/Water 2 GM in Premix Bag 1 BAG IV ONE (12:15)
[2019-12-19 12:33] LABS: BLOOD UREA NITROGEN,BUN 34 mg/dL (7.0-18.0); CARBON DIOXIDE,CO2 27.2 mmol/L (21.0-32.0); CHLORIDE,CL 93 mmol/L (98-107); GLUCOSE RANDOM 101 mg/dL (74-106); POTASSIUM,K 4.1 mmol/L (3.5-5.1); SODIUM,NA 131 mmol/L (136-148)
--- NOTE | 2019-12-19 12:52 | CR ---
Chest: Portable view of the chest was obtained. Comparison: Prior chest x-ray of 06/18/18. Increased lung markings are seen bilaterally which appear fairly stable from prior exam. No definite acute parenchymal change is seen. Heart size at the upper limits of normal. Bony structures shows degenerative change within the spine. Surgical clips are noted within the left neck. Impression: 1. Findings as noted above. No definite change from previous study is seen. Diagnostic code #3 This report was dictated in MDT
[2019-12-19] MEDS ORDERED: Furosemide 40 MG/4 ML VIAL IVPUSH ONE (13:25)
[2019-12-19] MEDS ORDERED: Acetaminophen 325 MG Tab PO PRN (14:23)
[2019-12-19] MEDS ORDERED: Sodium Chloride 0.9% 2.5 ML Syringe FLUSH PRN (14:23)
[2019-12-19] MEDS ORDERED: Ondansetron 4 MG/2 ML SDV IVPUSH PRN (14:23)
--- NOTE | 2019-12-19 14:58 | PCM.HP.2 ---
H&P History of Present Illness - General Date of Service: 12/19/19 Admit Problem/Dx: Admission Diagnosis/Problem Admission Diagnosis/Problem Dyspnea related to CHF exacerbation Source of Information: Patient, Family, Old Records (reviewed [facility] records from admission 1 mo ago) History Limitations: Reports: No Limitations - History of Present Illness Initial Comments - Free Text/Narative: This 79 year old male with pmh diastolic CHF, aortic stenosis, COPD, CAD, BPH GERD, HTN, and parkinson's disease presented to the ED with complaints of worsening dyspnea over the last 3-4 days. Today the Home Health nurse was by and he was unable to get up from his chair. He was noted to have 10 lb weight gain over the weekend and he feels like his legs are very swollen. He is very poor historian. He denies overt chest pain. Reports shortness of breath is intermittent worse when lying flat and worse with activity. He feels he has been going down hill the last few days. He reports his weight was 187 lbs and normally runs close to 170 Records were reviewed from [facility] admission 1 month ago, he was intubated in [facility] and transferred to [facility]. He was intubated for 3 days, then slowly improved. ECHO at that time showed EF 55% with grade 2 diastolic dysfunction, no segmental wall abnormalities, moderate aortic stenosis valve stenosis. Doppler of lower extremities showed "non compressible left common femoral vein and proximal superficial femoral vein, no definite thrombus is seen and Doppler signal was normal" CTA of chest revealed "pulmonary emboli in the right lower lobe, pulmonary artery hypertension with right heart strain, felt this was related to chronic airspace disease vs PEs. He was transitioned to Lasix 40 BID and sent to rehab facility. He has been doing well at home with home health to help manage medications. I spoke with daughter Carrie. She is talking with , P[facility], as she is [facility]. She reports he has become agitated and very concerned with his breathing the last couple days. He is reporting more shortness of breath than normal. They have not noticed any bleeding or black stools. No active bleeding noted. He is very fixated on his medications as well. Recently, Dr Ornelas decreased Metoprolol to 25 XL daily, added Metalozone 2.5 MWF and increased Potassium. In the ED no leukocytosis noted, hgb 8.8, platelet count 130, D dimer 1.05. Na 131, Cl 93, BUN 34, Cr 2.0, Bili 1.5, troponin negative BNP 1128, CXR shows increase interstitial markings which are stable. He was given Solumedrol, Duoneb and Magnesium in the ED. At home O2 sats on 2 L was noted to be in the 80s. He does wear 2 L NC at home at all times. Admitted inpatient for concerns of acute on chronic hypoxic respiratory failure, COPD and CHF exacerbation. PCP, Dr Ornelas - Related Data Allergies/Adverse Reactions: Allergies Allergy/AdvReac Type Severity Reaction Status Date / Time No Known Allergies Allergy Verified 12/19/19 15:02 Home Medications: Home Meds Finasteride 5 mg PO DAILY 04/23/19 [History] Fludrocortisone [Florinef] 0.05 mg PO ASDIRECTED 04/23/19 [History] Furosemide 40 mg PO DAILY 04/23/19 [History] Metoprolol Succinate [Toprol XL 50mg] 50 mg PO BEDTIME 04/23/19 [History] Rosuvastatin [Crestor] 20 mg PO DAILY 04/23/19 [History] Albuterol [Ventolin HFA] 2 puff INH ASDIRECTED PRN 09/07/19 [History] Aspirin [Low Dose Aspirin EC] 81 mg PO DAILY 09/07/19 [History] Carbidopa/Levodopa [Carbidopa-Levo ER 50-200] 50 - 200 mg PO BID 09/07/19 [ History] Nitroglycerin 1 tab SL ASDIRECTED PRN 09/07/19 [History] Pantoprazole Sodium [Protonix] 20 mg PO DAILY 12/19/19 [History] Potassium Chloride [Klor-Con M20] 20 meq PO QID 12/19/19 [History] Past Medical History HEENT History: Reports: Cataract Other HEENT History: wears glasses for reading, Cardiovascular History: Reports: Arrhythmia, CAD, Heart Murmur, High Cholesterol , Hypertension, Pulmonary Hypertension, PVD, SOB on Exertion, Syncope Respiratory History: Reports: COPD Other Respiratory History: states seldom uses inhaler Gastrointestinal History: Reports: GERD Genitourinary History: Reports: BPH, Prostate Disorder Musculoskeletal History: Reports: Arthritis, Back Pain, Chronic, Gout Neurological History: Reports: Parkinson's Psychiatric History: Reports: None Endocrine/Metabolic History: Reports: None. Denies: Diabetes, Type II, Obesity/ BMI 30+ Hematologic History: Reports: None Immunologic History: Reports: None Oncologic (Cancer) History: Reports: None Dermatologic History: Reports: None - Infectious Disease History Infectious Disease History: Reports: Chicken Pox, Measles, Mumps - Past Surgical History Head Surgeries/Procedures: Reports: None HEENT Surgical History: Reports: Cataract Surgery Cardiovascular Surgical History: Reports: Carotid Endarterectomy Other Cardiovascular Surgeries/Procedures: angioplasty, lt carotid thromboendarterectomy 07/20 Respiratory Surgical History: Reports: None GI Surgical History: Reports: None Male Surgical History: Reports: None Endocrine Surgical History: Reports: None Neurological Surgical History: Reports: None Musculoskeletal Surgical History: Reports: None Oncologic Surgical History: Reports: None Dermatological Surgical History: Reports: None Social & Family History - Family History Family Medical History: Noncontributory - Tobacco Use Smoking Status *Q: Unknown Ever Smoked - Caffeine Use Caffeine Use: Reports: Coffee - Living Situation & Occupation Living situation: Reports: with Spouse Occupation: Retired H&P Review of Systems - Review of Systems: Review Of Systems: See Below General: Reports: No Symptoms, Weakness, Fatigue. Denies: Fever, Chills Pulmonary: Reports: Shortness of Breath. Denies: Pleuritic Chest Pain Cardiovascular: Reports: Dyspnea on Exertion, Edema. Denies: Chest Pain Gastrointestinal: Reports: No Symptoms. Denies: Abdominal Pain, Black Stool, Bloody Stool, Decreased Appetite, Nausea, Vomiting Genitourinary: Reports: No Symptoms. Denies: Dysuria, Frequency, Burning Musculoskeletal: Reports: Muscle Stiffness (lower legs) Skin: Reports: No Symptoms Neurological: Reports: No Symptoms Hematologic/Lymphatic: Reports: No Symptoms Immunologic: Reports: No Symptoms Exam - Exam Exam: See Below - Vital Signs Vital Signs: Last Vital Signs Temp 96.6 F L 12/19/19 11:33 Pulse 98 12/19/19 12:59 Resp 16 12/19/19 12:59 BP 134/79 12/19/19 12:59 Pulse Ox 96 12/19/19 12:59 - Exam General: Alert, Oriented, Cooperative HEENT: Conjunctiva Clear, Mucosa Moist & [place], Posterior Pharynx Clear Lungs: Normal Respiratory Effort, Decreased Breath Sounds (bibasilar), Crackles. No: Wheezing Cardiovascular: Regular Rate, Regular Rhythm, Systolic Murmur GI/Abdominal Exam: Normal Bowel Sounds, Soft, Non-Tender Back Exam: Normal Inspection, Full Range of Motion Extremities: Normal Range of Motion, Pedal Edema (+3 pitting edema extending from hips bilaterally to feet, taught shiny skin) Neuro Extensive - Mental Status: Alert, Oriented x3 Neuro Extensive - Motor, Sensory, Reflexes: CN II-XII Intact Psychiatric: Alert, Normal Affect, Normal Mood - Patient Data Lab Results Last 24 hrs: Laboratory Results - last 24 hr 12/19/19 12/19/19 12/19/19 Range/Units 12:00 12:00 12:00 WBC 3.34 L (4.0-11.0) K/uL RBC 3.03 L (4.50-5.90) M/uL Hgb 8.8 L (13.0-17.0) g/dL Hct 27.9 L (38.0-50.0) % MCV 92.1 (80.0-98.0) fL MCH 29.0 (27.0-32.0) pg MCHC 31.5 (31.0-37.0) g/dL RDW Std Deviation 57.0 (28.0-62.0) fl RDW Coeff of Sonya 17 H (11.0-15.0) % Plt Count 130 L (150-400) K/uL MPV 9.90 (7.40-12.00) fL Neut % (Auto) 73.9 (48.0-80.0) % Lymph % (Auto) 15.9 L (16.0-40.0) % [place] % (Auto) 9.6 (0.0-15.0) % Eos % (Auto) 0.3 (0.0-7.0) % Baso % (Auto) 0.3 (0.0-1.5) % Neut # (Auto) 2.5 (1.4-5.7) K/uL Lymph # (Auto) 0.5 L (0.6-2.4) K/uL [place] # (Auto) 0.3 (0.0-0.8) K/uL Eos # (Auto) 0.0 (0.0-0.7) K/uL Baso # (Auto) 0.0 (0.0-0.1) K/uL Nucleated RBC % 0.0 /100WBC Nucleated RBCs # 0 K/uL D-Dimer, Quantitative 1.05 H (0.0-0.50) mg/L FEU Lactate 1.5 (0.20-2.00) mmol/L Sodium (136-148) mmol/L Potassium (3.5-5.1) mmol/L Chloride (98-107) mmol/L Carbon Dioxide (21.0-32.0) mmol/L BUN (7.0-18.0) mg/dL Creatinine (0.8-1.3) mg/dL Est Cr Clr Drug Dosing Estimated GFR (MDRD) ml/min Glucose (74-106) mg/dL Calcium (8.5-10.1) mg/dL Total Bilirubin (0.2-1.0) mg/dL AST (15-37) IU/L ALT (14-63) IU/L Alkaline Phosphatase (46-116) U/L Troponin I (0.000-0.056) ng/mL B-Natriuretic Peptide (<100) PG/ML Total Protein (6.4-8.2) g/dL Albumin (3.4-5.0) g/dL Globulin (2.6-4.0) g/dL Albumin/Globulin Ratio (0.9-1.6) SARS-CoV-2 RNA (RT-PCR) (NEGATIVE) 12/19/19 12/19/19 12/19/19 Range/Units 12:00 12:00 13:15 WBC (4.0-11.0) K/uL RBC (4.50-5.90) M/uL Hgb (13.0-17.0) g/dL Hct (38.0-50.0) % MCV (80.0-98.0) fL MCH (27.0-32.0) pg MCHC (31.0-37.0) g/dL RDW Std Deviation (28.0-62.0) fl RDW Coeff of Sonya (11.0-15.0) % Plt Count (150-400) K/uL MPV (7.40-12.00) fL Neut % (Auto) (48.0-80.0) % Lymph % (Auto) (16.0-40.0) % [place] % (Auto) (0.0-15.0) % Eos % (Auto) (0.0-7.0) % Baso % (Auto) (0.0-1.5) % Neut # (Auto) (1.4-5.7) K/uL Lymph # (Auto) (0.6-2.4) K/uL [place] # (Auto) (0.0-0.8) K/uL Eos # (Auto) (0.0-0.7) K/uL Baso # (Auto) (0.0-0.1) K/uL Nucleated RBC % /100WBC Nucleated RBCs # K/uL D-Dimer, Quantitative (0.0-0.50) mg/L FEU Lactate (0.20-2.00) mmol/L Sodium 131 L (136-148) mmol/L Potassium 4.1 (3.5-5.1) mmol/L Chloride 93 L (98-107) mmol/L Carbon Dioxide 27.2 (21.0-32.0) mmol/L BUN 34 H (7.0-18.0) mg/dL Creatinine 2.0 H (0.8-1.3) mg/dL Est Cr Clr Drug Dosing TNP Estimated GFR (MDRD) 32.4 ml/min Glucose 101 (74-106) mg/dL Calcium 8.8 (8.5-10.1) mg/dL Total Bilirubin 1.5 H (0.2-1.0) mg/dL AST 34 (15-37) IU/L ALT 12 L (14-63) IU/L Alkaline Phosphatase 148 H (46-116) U/L Troponin I < 0.050 (0.000-0.056) ng/mL B-Natriuretic Peptide 1128 H (<100) PG/ML Total Protein 8.6 H (6.4-8.2) g/dL Albumin 3.1 L (3.4-5.0) g/dL Globulin 5.5 H (2.6-4.0) g/dL Albumin/Globulin Ratio 0.6 L (0.9-1.6) SARS-CoV-2 RNA (RT-PCR) NEGATIVE (NEGATIVE) Result Diagrams: 12/19/19 12:00 12/19/19 12:00 Sepsis Event Note - Evaluation Sepsis Screening Result: No Definite Risk - Focused Exam Vital Signs: Vital Signs Temp Pulse Resp BP Pulse Ox 12/19/19 12:59 98 16 134/79 96 12/19/19 12:17 78 29 H 131/74 99 12/19/19 11:33 96.6 F L 105 H 30 H 128/89 99 Date Exam was Performed: 12/19/19 Time Exam was Performed: 17:49 - Problem List (1) Acute and chronic respiratory failure with hypoxia SNOMED Code(s): 87973182, 646746537 ICD Code: J96.21 - ACUTE AND CHRONIC RESPIRATORY FAILURE WITH HYPOXIA Status: Acute Current Visit: Yes (2) Diastolic heart failure SNOMED Code(s): 547429925 ICD Code: I50.30 - UNSPECIFIED DIASTOLIC (CONGESTIVE) HEART FAILURE Status : Acute Current Visit: Yes Qualifiers: Heart failure chronicity: acute on chronic Qualified Code(s): I50.33 - Acute on chronic diastolic (congestive) heart failure (3) Aortic stenosis SNOMED Code(s): 75906313 ICD Code: I35.0 - NONRHEUMATIC AORTIC (VALVE) STENOSIS Status: Chronic Current Visit: Yes Qualifiers: Cardiac valve disease etiology: etiology unspecified Qualified Code(s): I35.0 - Nonrheumatic aortic (valve) stenosis (4) GERD (gastroesophageal reflux disease) SNOMED Code(s): 618985149 ICD Code: K21.9 - GASTRO-ESOPHAGEAL REFLUX DISEASE WITHOUT ESOPHAGITIS Status: Acute Current Visit: No (5) Parkinsons disease SNOMED Code(s): 96778449 ICD Code: G20 - PARKINSON'S DISEASE Status: Acute Current Visit: No (6) Oxygen dependent SNOMED Code(s): 045986323436 ICD Code: Z99.81 - DEPENDENCE ON SUPPLEMENTAL OXYGEN Status: Chronic Current Visit: Yes (7) Anemia SNOMED Code(s): 452937788 ICD Code: D64.9 - ANEMIA, UNSPECIFIED Status: Acute Current Visit: Yes Problem List Initiated/Reviewed/Updated: Yes Orders Last 24hrs: Active Orders 24 hr Category Date Time Status Admission Status [Patient Status] [ADT] Stat ADT 12/19/19 13:11 Active Height and Weight [RC] DAILY Care 12/19/19 14:23 Active Intake and Output Strict [RC] ASDIRECTED Care 12/19/19 13:26 Active May Shower [RC] ASDIRECTED Care 12/19/19 14:23 Active Oxygen Therapy [RC] PRN Care 12/19/19 14:23 Active RT Aerosol Therapy [RC] ASDIRECTED Care 12/19/19 11:40 Active RT Aerosol Therapy [RC] ASDIRECTED Care 12/19/19 14:29 Active Telemetry Monitoring [Cardiac Monitoring] [RC] . Care 12/19/19 14:29 Active DIRECTED Up to Chair [RC] ASDIRECTED Care 12/19/19 14:23 Active VTE/DVT Education [RC] PER UNIT ROUTINE Care 12/19/19 14:23 Active Vital Signs [RC] Q4H Care 12/19/19 14:23 Active PT Evaluation and Treatment [CONS] Routine Cons 12/19/19 14:23 Active Heart Healthy Diet [DIET] Diet 12/19/19 Lunch Active BASIC METABOLIC PANEL,BMP [CHEM] AM Lab 12/20/19 05:11 Ordered BASIC METABOLIC PANEL,BMP [CHEM] AM Lab 12/21/19 05:11 Ordered BASIC METABOLIC PANEL,BMP [CHEM] AM Lab 12/22/19 05:11 Ordered CBC WITH AUTO DIFF [HEME] AM Lab 12/20/19 05:11 Ordered CBC WITH AUTO DIFF [HEME] AM Lab 12/21/19 05:11 Ordered CBC WITH AUTO DIFF [HEME] AM Lab 12/22/19 05:11 Ordered MAGNESIUM [CHEM] AM Lab 12/20/19 05:11 Ordered MAGNESIUM [CHEM] AM Lab 12/21/19 05:11 Ordered MAGNESIUM [CHEM] AM Lab 12/22/19 05:11 Ordered PHOSPHORUS [CHEM] AM Lab 12/20/19 05:11 Ordered PHOSPHORUS [CHEM] AM Lab 12/21/19 05:11 Ordered PHOSPHORUS [CHEM] AM Lab 12/22/19 05:11 Ordered UA RFX ARANZA AND CULT IF INDIC [URIN] Urgent Lab 12/19/19 14:46 Ordered Acetaminophen [Tylenol] Med 12/19/19 14:23 Ordered 650 mg PO Q4H PRN Albuterol/Ipratropium [DuoNeb 3.0-0.5 MG/3 ML] Med 12/19/19 18:00 Ordered 3 ml NEB Q4HRRT Ondansetron [Zofran] Med 12/19/19 14:23 Ordered 4 mg IVPUSH Q4H PRN Sodium Chloride 0.9% [Saline Flush] Med 12/19/19 14:23 Ordered 2.5 ml FLUSH ASDIRECTED PRN Obtain Past Medical Record [OM.PC] Routine Oth 12/19/19 14:33 Ordered Saline Lock Insert [OM.PC] Routine Oth 12/19/19 14:23 Ordered Medication Orders Acetaminophen (Tylenol) 650 mg PO Q4H PRN PRN Reason: Pain (Mild 1-3)/fever Albuterol/Ipratropium (Duoneb 3.0-0.5 Mg/3 Ml) 3 ml NEB Q4HRRT FARIDA Ondansetron HCl (Zofran) 4 mg IVPUSH Q4H PRN PRN Reason: Nausea Sodium Chloride (Saline Flush) 2.5 ml FLUSH ASDIRECTED PRN PRN Reason: Keep Vein Open Assessment/Plan Comment:: THis 79 year old male admitted with acute on chronic hypoxic respiratory failure and CHF exacerbation 1. Acute on chronic hypoxic respiratory failure - Hypoxic on 2 L NC - Likely related to acute on chronic CHF exacerbation - Continue 2 L NC keep sats above 88% due to COPD - see CHF below 2. Acute CHF exacerbation, anasarca - Lasix 40 mg TID - Strict I/0 -Daily weights - Heart Healthy diet, 2 L FR - ECHO 1 mo ago, EF 55%, aortic stenosis, pulmonary hypertension and diastolic dysfunction - Continue Metoprolol, was recently decreased to 25 mg by PCP. Monitor - Telemetry 3. COPD - No wheezing on exam, sounds more CHF - Duonebs scheduled - COVID negative - Monitor 4. Hx DVT/PE? - Noted in [facility] paperwork, no anticoagulation started or dc home on. - Will recheck Doppler, consider repeat CTA - Discuss with PCP in am. 5. Anemia - Stable, obtain Hemoccult - Family denies bleeding 6. Parkinsons - Continue home medications 7. BPH: - Continue Proscar - Check UA due to agitation and some intermittent confusion at home VTE prophylaxis: Heparin Code status: DNR/DNI per daughter/ and Living will in chart. Dispo: Should be inpatient from beginning, as will need greater than 2 midnight stay.
[2019-12-19] MEDS: Albuterol/Ipratropium 3.0-0.5 MG/3 ML Neb Soln NEB SCH ×2 (17:09→21:10)
[2019-12-19] MEDS: Carbidopa/Levodopa 50-200 MG Tab.ER PO SCH (20:30)
[2019-12-19] MEDS: Metoprolol Succinate 25 MG Tab.ER PO SCH (20:30)
[2019-12-19] MEDS: Furosemide 40 MG/4 ML VIAL IVPUSH SCH (22:08)
[2019-12-20] MEDS: Albuterol/Ipratropium 3.0-0.5 MG/3 ML Neb Soln NEB SCH ×6 (01:22→21:06)
[2019-12-20] MEDS: Furosemide 40 MG/4 ML VIAL IVPUSH SCH ×3 (05:24→21:36)
[2019-12-20 06:51] LABS: CARBON DIOXIDE,CO2 28.4 mmol/L (21.0-32.0); POTASSIUM,K 3.9 mmol/L (3.5-5.1)
--- NOTE | 2019-12-20 07:37 | US ---
Bilateral lower extremity deep venous ultrasound: Duplex and color Doppler evaluation was obtained of the right and left common femoral, superficial femoral, popliteal, posterior tibial and peroneal veins. Lymph nodes noted within both groins. Subcutaneous edema noted within both lower extremities. Normal compression and Doppler blood flow seen within the deep veins. Impression: 1. Inguinal lymph nodes most likely incidental. 2. Subcutaneous edema. 3. No findings of deep venous thrombosis is seen within either the right or left lower extremities. Diagnostic code #2 This report was dictated in MDT
[2019-12-20] MEDS: Fludrocortisone 0.1 MG Tab PO SCH (09:23)
[2019-12-20] MEDS: Carbidopa/Levodopa 50-200 MG Tab.ER PO SCH ×2 (09:23→20:39)
[2019-12-20] MEDS: Rosuvastatin 10 MG Tab PO SCH (09:23)
[2019-12-20] MEDS: Finasteride 5 MG Tab PO SCH (09:23)
--- NOTE | 2019-12-20 13:28 | PCM.PN ---
- General Info Date of Service: 12/20/19 Admission Dx/Problem (Free Text): Admission Diagnosis/Problem Admission Diagnosis/Problem Dyspnea related to CHF exacerbation Subjective Update: Feeling a little better today, intermittent SOB improving. No chest pain. Swelling to legs continues, slight improvement. Functional Status: Reports: Pain Controlled, Tolerating Diet, Ambulating, Urinating - Review of Systems General: Reports: No Symptoms Pulmonary: Reports: Shortness of Breath. Denies: Cough, Wheezing Cardiovascular: Reports: Dyspnea on Exertion, Edema. Denies: Chest Pain, Palpitations Gastrointestinal: Reports: No Symptoms. Denies: Abdominal Pain, Nausea, Vomiting Genitourinary: Reports: No Symptoms. Denies: Dysuria, Frequency, Burning Musculoskeletal: Reports: No Symptoms Skin: Reports: No Symptoms Neurological: Reports: Confusion Psychiatric: Reports: No Symptoms - Patient Data Vitals - Most Recent: Last Vital Signs Temp 98.1 F 12/20/19 08:00 Pulse 96 12/20/19 08:00 Resp 19 12/20/19 08:00 BP 111/60 12/20/19 08:00 Pulse Ox 97 12/20/19 08:00 Weight - Most Recent: 85.548 kg I&O - Last 24 Hours: Intake & Output 12/19/19 12/20/19 12/20/19 22:59 06:59 14:59 Intake Total 600 Output Total 980 Balance -380 Lab Results Last 24 Hours: Laboratory Results - last 24 hr 12/19/19 12/19/19 12/19/19 Range/Units 12:00 13:15 22:55 WBC (4.0-11.0) K/uL RBC (4.50-5.90) M/uL Hgb (13.0-17.0) g/dL Hct (38.0-50.0) % MCV (80.0-98.0) fL MCH (27.0-32.0) pg MCHC (31.0-37.0) g/dL RDW Std Deviation (28.0-62.0) fl RDW Coeff of Sonya (11.0-15.0) % Plt Count (150-400) K/uL MPV (7.40-12.00) fL Neut % (Auto) (48.0-80.0) % Lymph % (Auto) (16.0-40.0) % [place] % (Auto) (0.0-15.0) % Eos % (Auto) (0.0-7.0) % Baso % (Auto) (0.0-1.5) % Neut # (Auto) (1.4-5.7) K/uL Lymph # (Auto) (0.6-2.4) K/uL [place] # (Auto) (0.0-0.8) K/uL Eos # (Auto) (0.0-0.7) K/uL Baso # (Auto) (0.0-0.1) K/uL Nucleated RBC % /100WBC Nucleated RBCs # K/uL Sodium (136-148) mmol/L Potassium (3.5-5.1) mmol/L Chloride (98-107) mmol/L Carbon Dioxide (21.0-32.0) mmol/L BUN (7.0-18.0) mg/dL Creatinine (0.8-1.3) mg/dL Est Cr Clr Drug Dosing mL/min Estimated GFR (MDRD) ml/min Glucose (74-106) mg/dL Calcium (8.5-10.1) mg/dL Phosphorus (2.6-4.7) mg/dL Magnesium (1.8-2.4) mg/dL Total Bilirubin (0.2-1.0) mg/dL AST (15-37) IU/L ALT (14-63) IU/L Alkaline Phosphatase (46-116) U/L B-Natriuretic Peptide 1128 H (<100) PG/ML Total Protein (6.4-8.2) g/dL Albumin (3.4-5.0) g/dL Globulin (2.6-4.0) g/dL Albumin/Globulin Ratio (0.9-1.6) Urine Color YELLOW Urine Appearance CLEAR Urine pH 5.0 (5.0-8.0) Ur Specific [place] 1.020 (1.001-1.035) Urine Protein NEGATIVE (NEGATIVE) mg/dL Urine Glucose (UA) NEGATIVE (NEGATIVE) mg/dL Urine Ketones NEGATIVE (NEGATIVE) mg/dL Urine Occult Blood TRACE-INTACT H (NEGATIVE) Urine Nitrite NEGATIVE (NEGATIVE) Urine Bilirubin NEGATIVE (NEGATIVE) Urine Urobilinogen 0.2 (<2.0) EU/dL Ur Leukocyte Esterase NEGATIVE (NEGATIVE) U Hyaline Cast (Auto) 0-1 (0-2/LPF) Urine RBC 0-1 (0-2/HPF) Urine WBC 0-1 (0-5/HPF) Ur Epithelial Cells RARE (NONE-FEW) Urine Bacteria FEW (NEGATIVE) Urine Mucus LIGHT (NONE-MOD) SARS-CoV-2 RNA (RT-PCR) NEGATIVE (NEGATIVE) 12/20/19 12/20/19 Range/Units 06:22 06:22 WBC 2.24 L (4.0-11.0) K/uL RBC 3.00 L (4.50-5.90) M/uL Hgb 8.6 L (13.0-17.0) g/dL Hct 27.3 L (38.0-50.0) % MCV 91.0 (80.0-98.0) fL MCH 28.7 (27.0-32.0) pg MCHC 31.5 (31.0-37.0) g/dL RDW Std Deviation 56.1 (28.0-62.0) fl RDW Coeff of Sonya 17 H (11.0-15.0) % Plt Count 115 L (150-400) K/uL MPV 10.10 (7.40-12.00) fL Neut % (Auto) 81.7 H (48.0-80.0) % Lymph % (Auto) 8.5 L (16.0-40.0) % [place] % (Auto) 9.8 (0.0-15.0) % Eos % (Auto) 0.0 (0.0-7.0) % Baso % (Auto) 0.0 (0.0-1.5) % Neut # (Auto) 1.8 (1.4-5.7) K/uL Lymph # (Auto) 0.2 L (0.6-2.4) K/uL [place] # (Auto) 0.2 (0.0-0.8) K/uL Eos # (Auto) 0.0 (0.0-0.7) K/uL Baso # (Auto) 0.0 (0.0-0.1) K/uL Nucleated RBC % 0.7 /100WBC Nucleated RBCs # 0 K/uL Sodium 134 L (136-148) mmol/L Potassium 3.9 (3.5-5.1) mmol/L Chloride 95 L (98-107) mmol/L Carbon Dioxide 28.4 (21.0-32.0) mmol/L BUN 38 H (7.0-18.0) mg/dL Creatinine 2.0 H (0.8-1.3) mg/dL Est Cr Clr Drug Dosing 32.87 mL/min Estimated GFR (MDRD) 32.4 ml/min Glucose 140 H (74-106) mg/dL Calcium 8.7 (8.5-10.1) mg/dL Phosphorus 4.3 (2.6-4.7) mg/dL Magnesium 2.3 (1.8-2.4) mg/dL Total Bilirubin 1.2 H (0.2-1.0) mg/dL AST 32 (15-37) IU/L ALT 13 L (14-63) IU/L Alkaline Phosphatase 137 H (46-116) U/L B-Natriuretic Peptide (<100) PG/ML Total Protein 7.7 (6.4-8.2) g/dL Albumin 2.8 L (3.4-5.0) g/dL Globulin 4.9 H (2.6-4.0) g/dL Albumin/Globulin Ratio 0.6 L (0.9-1.6) Urine Color Urine Appearance Urine pH (5.0-8.0) Ur Specific [place] (1.001-1.035) Urine Protein (NEGATIVE) mg/dL Urine Glucose (UA) (NEGATIVE) mg/dL Urine Ketones (NEGATIVE) mg/dL Urine Occult Blood (NEGATIVE) Urine Nitrite (NEGATIVE) Urine Bilirubin (NEGATIVE) Urine Urobilinogen (<2.0) EU/dL Ur Leukocyte Esterase (NEGATIVE) U Hyaline Cast (Auto) (0-2/LPF) Urine RBC (0-2/HPF) Urine WBC (0-5/HPF) Ur Epithelial Cells (NONE-FEW) Urine Bacteria (NEGATIVE) Urine Mucus (NONE-MOD) SARS-CoV-2 RNA (RT-PCR) (NEGATIVE) Med Orders - Current: Current Medications Acetaminophen (Tylenol) 650 mg PO Q4H PRN PRN Reason: Pain (Mild 1-3)/fever Albuterol/Ipratropium (Duoneb 3.0-0.5 Mg/3 Ml) 3 ml NEB Q4HRRT [facility] Last Admin: 12/20/19 09:42 Dose: 3 ml Carbidopa/Levodopa (Sinemet Cr 50-200 Mg) 1 tab PO BID [facility] Last Admin: 12/20/19 09:23 Dose: 1 tab Finasteride (Proscar) 5 mg PO DAILY [facility] Last Admin: 12/20/19 09:23 Dose: 5 mg Fludrocortisone Acetate (Florinef) 0.05 mg PO DAILY [facility] Last Admin: 12/20/19 09:23 Dose: 0.05 mg Furosemide (Lasix) 40 mg IVPUSH TID [facility] Last Admin: 12/20/19 05:24 Dose: 40 mg Metoprolol Succinate (Toprol Xl) 25 mg PO BEDTIME [facility] Last Admin: 12/19/19 20:30 Dose: 25 mg Ondansetron HCl (Zofran) 4 mg IVPUSH Q4H PRN PRN Reason: Nausea Rosuvastatin Calcium (Crestor) 20 mg PO DAILY [facility] Last Admin: 12/20/19 09:23 Dose: 20 mg Sodium Chloride (Saline Flush) 2.5 ml FLUSH ASDIRECTED PRN PRN Reason: Keep Vein Open Discontinued Medications Albuterol/Ipratropium (Duoneb 3.0-0.5 Mg/3 Ml) 3 ml NEB ONETIME ONE Stop: 12/19/19 11:40 Last Admin: 12/19/19 11:50 Dose: 3 ml Furosemide (Lasix) 40 mg IVPUSH NOW ONE Stop: 12/19/19 13:26 Last Admin: 12/19/19 14:21 Dose: 40 mg Magnesium Sulfate 2 gm/ Premix 50 mls @ 50 mls/hr IV ONETIME ONE Stop: 12/19/19 13:14 Last Admin: 12/19/19 12:13 Dose: 50 mls/hr Methylprednisolone Sodium Succinate (Solu-Medrol) 125 mg IV ONETIME ONE Stop: 12/19/19 11:40 Last Admin: 12/19/19 12:13 Dose: 125 mg - Exam General: Alert, Oriented, Cooperative, No Acute Distress Lungs: Normal Respiratory Effort, Decreased Breath Sounds (bibasilar). No: Wheezing Cardiovascular: Regular Rate, Regular Rhythm, Murmurs GI/Abdominal Exam: Normal Bowel Sounds, Soft, Non-Tender Extremities: Normal Inspection, Normal Range of Motion, Non-Tender, Pedal Edema (+3 pitting edema extending from hips to feet) Neurological: No New Focal Deficit Psy/Mental Status: Alert, Normal Affect, Normal Mood Sepsis Event Note - Evaluation Sepsis Screening Result: No Definite Risk - Focused Exam Vital Signs: Vital Signs Temp Pulse Resp BP Pulse Ox 12/20/19 08:00 98.1 F 96 19 111/60 97 12/20/19 04:00 98.2 F 106 H 20 113/56 L 92 L Date Exam was Performed: 12/20/19 Time Exam was Performed: 13:11 - Problem List & Annotations (1) Acute and chronic respiratory failure with hypoxia SNOMED Code(s): 77486558, 261302896 Code(s): J96.21 - ACUTE AND CHRONIC RESPIRATORY FAILURE WITH HYPOXIA Status : Acute Current Visit: Yes (2) Diastolic heart failure SNOMED Code(s): 806191754 Code(s): I50.30 - UNSPECIFIED DIASTOLIC (CONGESTIVE) HEART FAILURE Status: Acute Current Visit: Yes Qualifiers: Heart failure chronicity: acute on chronic Qualified Code(s): I50.33 - Acute on chronic diastolic (congestive) heart failure (3) Aortic stenosis SNOMED Code(s): 10135124 Code(s): I35.0 - NONRHEUMATIC AORTIC (VALVE) STENOSIS Status: Chronic Current Visit: Yes Qualifiers: Cardiac valve disease etiology: etiology unspecified Qualified Code(s): I35.0 - Nonrheumatic aortic (valve) stenosis (4) GERD (gastroesophageal reflux disease) SNOMED Code(s): 376285414 Code(s): K21.9 - GASTRO-ESOPHAGEAL REFLUX DISEASE WITHOUT ESOPHAGITIS Status: Acute Current Visit: No (5) Parkinsons disease SNOMED Code(s): 42657420 Code(s): G20 - PARKINSON'S DISEASE Status: Acute Current Visit: No (6) Oxygen dependent SNOMED Code(s): 557049629225 Code(s): Z99.81 - DEPENDENCE ON SUPPLEMENTAL OXYGEN Status: Chronic Current Visit: Yes (7) Anemia SNOMED Code(s): 626808989 Code(s): D64.9 - ANEMIA, UNSPECIFIED Status: Acute Current Visit: Yes - Problem List Review Problem List Initiated/Reviewed/Updated: Yes - My Orders Last 24 Hours: My Active Orders 05/18/20 13:26 Intake and Output Strict [RC] Q12H 12/19/19 14:23 Height and Weight [RC] DAILY May Shower [RC] ASDIRECTED Oxygen Therapy [RC] PRN Up to Chair [RC] ASDIRECTED VTE/DVT Education [RC] PER UNIT ROUTINE Vital Signs [RC] Q4H PT Evaluation and Treatment [CONS] Routine Acetaminophen [Tylenol] 650 mg PO Q4H PRN Ondansetron [Zofran] 4 mg IVPUSH Q4H PRN Sodium Chloride 0.9% [Saline Flush] 2.5 ml FLUSH ASDIRECTED PRN Saline Lock Insert [OM.PC] Routine 12/19/19 14:29 RT Aerosol Therapy [RC] ASDIRECTED 12/19/19 14:33 Obtain Past Medical Record [OM.PC] Routine 12/19/19 15:40 Hemoccult [OCCULT BLOOD DIAGNOSTIC] [OP] Routine 12/19/19 17:42 Resuscitation Status Routine 12/19/19 17:59 Patient Status [ADT] Urgent 12/19/19 18:00 Albuterol/Ipratropium [DuoNeb 3.0-0.5 MG/3 ML] 3 ml NEB Q4HRRT 12/19/19 21:00 Carbidopa/Levodopa [Sinemet Cr 50-200 mg] 1 tab PO BID Metoprolol Succinate [Toprol XL] 25 mg PO BEDTIME 12/19/19 22:00 Furosemide [Lasix] 40 mg IVPUSH TID 12/20/19 09:00 Finasteride [Proscar] 5 mg PO DAILY Rosuvastatin [Crestor] 20 mg PO DAILY 12/20/19 09:15 Fludrocortisone [Florinef] 0.05 mg PO DAILY 12/21/19 05:11 CBC WITH AUTO DIFF [HEME] AM COMPREHENSIVE METABOLIC PN,CMP [CHEM] AM MAGNESIUM [CHEM] AM PHOSPHORUS [CHEM] AM 12/22/19 05:11 CBC WITH AUTO DIFF [HEME] AM COMPREHENSIVE METABOLIC PN,CMP [CHEM] AM MAGNESIUM [CHEM] AM PHOSPHORUS [CHEM] AM - Plan Plan:: THis 79 year old male admitted with acute on chronic hypoxic respiratory failure and CHF exacerbation 1. Acute on chronic hypoxic respiratory failure - Hypoxia improved, sating 90-95% on 2 L NC - Likely related to acute on chronic CHF exacerbation - Continue 2 L NC keep sats above 88% due to COPD - see CHF below 2. Acute CHF exacerbation, anasarca slow improvement - Lasix 40 mg TID - Strict I/0- hard to count due to incontinence. - Daily weights - Heart Healthy diet, 2 L FR - ECHO 1 mo ago, EF 55%, aortic stenosis, pulmonary hypertension and diastolic dysfunction - Continue Metoprolol, was recently decreased to 25 mg by PCP. Monitor - Telemetry - Ambulation limited by dyspnea. Will continue to monitor this. 3. COPD - Stable - Jason scheduled - Monitor 4. Hx DVT/PE? - Noted in [place] paperwork, no anticoagulation started or dc home on. - Doppler negative for DVT. - Afib noted overnight on telemetry - Hx DVT not known to Dr Ornelas. We discussed the new diagnosis of atrial fibrillation. This is new, he is needing anticoagulation. Discussed with Dr Stewart today. We are inclined to start due to CTA with PEs as well as new onset Afib. I discussed at length with Carrie, daughter. I laid out pros and cons of anticoagulation, she will discuss with her mother, Pascale and her dad Sagar and make a decision. 5. Anemia - Stable, obtain Hemoccult - Family denies bleeding 6. Parkinsons - Continue home medications - Confusion has been increased since hospitalization in [place], Carrie, daughter has requested head CT to evaluate for possible CVA in the past. Will obtain this today. 7. BPH: - Continue Proscar - UA negative. VTE prophylaxis: Heparin Code status: DNR/DNI per daughter/ and Living will in chart. Dispo: 2 days Discussed poor prognosis with daughter due to extensive medical co-morbidities including CHF, COPD, aortic stenosis, pulmonary hypertension along with intubation event only 1 month ago. She is understanding.
[2019-12-20] MEDS: Heparin Sodium 5,000 Units/ML Vial SUBCUT SCH (14:13)
--- NOTE | 2019-12-20 14:21 | CT ---
Head CT Technique: Multiple axial sections through the brain were obtained. Intravenous contrast was not utilized. Comparison: Prior head CT study of 02/05/18. Findings: Ventricles along with basal cisterns and sulci over the convexities are moderately prominent. Diminished density is noted within the periventricular white matter compatible with small vessel ischemic demyelination change. 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 No other abnormal parenchymal densities are seen. No evidence of intracranial hemorrhage. No midline shift or mass-effect is seen. Bone window settings were reviewed which show nothing acute within the visualized mastoid or paranasal sinuses. No acute calvarial abnormality is identified. Atherosclerotic calcification is seen within the vertebral vessels and within both carotid siphon. Impression: 1. Senescent change as noted above. 2. Nothing acute is appreciated on noncontrast head CT study. Diagnostic code #2 This report was dictated in MDT
--- NOTE | 2019-12-20 16:59 | PCM.PRNOTE ---
- Free Text/Narrative Note: Anes NOte I was called to provide IV access for this patient. A 22TN was placed in left wrist area, Excellent blood return. Flushes easily with saline. Time with patient [id number] Pawan Maharaj [employer]
[2019-12-20] MEDS: Metoprolol Succinate 25 MG Tab.ER PO SCH (20:38)
[2019-12-21] MEDS: Albuterol/Ipratropium 3.0-0.5 MG/3 ML Neb Soln NEB SCH ×6 (02:16→21:21)
[2019-12-21] MEDS: Heparin Sodium 5,000 Units/ML Vial SUBCUT SCH ×2 (02:16→12:36)
[2019-12-21] MEDS: Furosemide 40 MG/4 ML VIAL IVPUSH SCH ×3 (05:31→21:33)
[2019-12-21 06:37] LABS: CARBON DIOXIDE,CO2 30.8 mmol/L (21.0-32.0)
[2019-12-21] MEDS: Potassium Chloride 20 MEQ Tab.ER PO SCH ×2 (08:50→14:51)
[2019-12-21] MEDS: Rosuvastatin 10 MG Tab PO SCH (08:55)
[2019-12-21] MEDS: Finasteride 5 MG Tab PO SCH (08:55)
[2019-12-21] MEDS: Carbidopa/Levodopa 50-200 MG Tab.ER PO SCH ×2 (08:56→21:31)
[2019-12-21] MEDS: Fludrocortisone 0.1 MG Tab PO SCH (08:56)
[2019-12-21] MEDS: Metoprolol Tartrate 25 MG Tab PO ONE ×2 (09:04→11:25)
--- NOTE | 2019-12-21 11:39 | PCM.PN ---
- General Info Date of Service: 12/21/19 Admission Dx/Problem (Free Text): Admission Diagnosis/Problem Admission Diagnosis/Problem Dyspnea related to CHF exacerbation Subjective Update: Denies pain, very agitated this morning and confused. He is angry about his medications. No chest pain. - Review of Systems General: Reports: No Symptoms. Denies: Fatigue, Malaise HEENT: Reports: No Symptoms Pulmonary: Reports: No Symptoms Cardiovascular: Reports: No Symptoms, Palpitations. Denies: Chest Pain Gastrointestinal: Reports: No Symptoms. Denies: Abdominal Pain, Nausea, Vomiting Genitourinary: Reports: No Symptoms. Denies: Dysuria, Frequency Musculoskeletal: Reports: No Symptoms Skin: Reports: No Symptoms Neurological: Reports: No Symptoms. Denies: Confusion Psychiatric: Reports: No Symptoms. Denies: Confusion - Patient Data Vitals - Most Recent: Last Vital Signs Temp 97.3 F 12/21/19 08:00 Pulse 112 H 12/21/19 11:25 Resp 18 12/21/19 08:00 BP 119/75 12/21/19 11:25 Pulse Ox 95 12/21/19 08:00 Weight - Most Recent: 83.143 kg I&O - Last 24 Hours: Intake & Output 12/20/19 12/21/19 12/21/19 22:59 06:59 14:59 Intake Total 660 550 Output Total 530 780 Balance 130 -230 Lab Results Last 24 Hours: Laboratory Results - last 24 hr 12/21/19 12/21/19 Range/Units 05:42 05:42 WBC 4.39 (4.0-11.0) K/uL RBC 2.95 L (4.50-5.90) M/uL Hgb 8.5 L (13.0-17.0) g/dL Hct 27.2 L (38.0-50.0) % MCV 92.2 (80.0-98.0) fL MCH 28.8 (27.0-32.0) pg MCHC 31.3 (31.0-37.0) g/dL RDW Std Deviation 58.5 (28.0-62.0) fl RDW Coeff of Sonya 17 H (11.0-15.0) % Plt Count 139 L (150-400) K/uL MPV 9.40 (7.40-12.00) fL Neut % (Auto) 75.5 (48.0-80.0) % Lymph % (Auto) 15.7 L (16.0-40.0) % [place] % (Auto) 7.7 (0.0-15.0) % Eos % (Auto) 1.1 (0.0-7.0) % Baso % (Auto) 0.0 (0.0-1.5) % Neut # (Auto) 3.3 (1.4-5.7) K/uL Lymph # (Auto) 0.7 (0.6-2.4) K/uL [place] # (Auto) 0.3 (0.0-0.8) K/uL Eos # (Auto) 0.1 (0.0-0.7) K/uL Baso # (Auto) 0.0 (0.0-0.1) K/uL Nucleated RBC % 0.0 /100WBC Nucleated RBCs # 0 K/uL Sodium 135 L (136-148) mmol/L Potassium 3.0 L (3.5-5.1) mmol/L Chloride 96 L (98-107) mmol/L Carbon Dioxide 30.8 (21.0-32.0) mmol/L BUN 43 H (7.0-18.0) mg/dL Creatinine 1.9 H (0.8-1.3) mg/dL Est Cr Clr Drug Dosing 34.60 mL/min Estimated GFR (MDRD) 34.4 ml/min Glucose 107 H (74-106) mg/dL Calcium 8.7 (8.5-10.1) mg/dL Phosphorus 4.0 (2.6-4.7) mg/dL Magnesium 2.3 (1.8-2.4) mg/dL Total Bilirubin 0.9 (0.2-1.0) mg/dL AST 26 (15-37) IU/L ALT 8 L (14-63) IU/L Alkaline Phosphatase 125 H (46-116) U/L Total Protein 7.8 (6.4-8.2) g/dL Albumin 2.8 L (3.4-5.0) g/dL Globulin 5.0 H (2.6-4.0) g/dL Albumin/Globulin Ratio 0.6 L (0.9-1.6) Med Orders - Current: Current Medications Acetaminophen (Tylenol) 650 mg PO Q4H PRN PRN Reason: Pain (Mild 1-3)/fever Albuterol/Ipratropium (Duoneb 3.0-0.5 Mg/3 Ml) 3 ml NEB Q4HRRT [facility] Last Admin: 12/21/19 10:10 Dose: 3 ml Carbidopa/Levodopa (Sinemet Cr 50-200 Mg) 1 tab PO BID [facility] Last Admin: 12/21/19 08:56 Dose: 1 tab Finasteride (Proscar) 5 mg PO DAILY [facility] Last Admin: 12/21/19 08:55 Dose: 5 mg Fludrocortisone Acetate (Florinef) 0.05 mg PO DAILY [facility] Last Admin: 12/21/19 08:56 Dose: 0.05 mg Furosemide (Lasix) 40 mg IVPUSH TID [facility] Last Admin: 12/21/19 05:31 Dose: 40 mg Heparin Sodium (Porcine) (Heparin Sodium) 5,000 units SUBCUT Q12H [facility] Last Admin: 12/21/19 02:16 Dose: 5,000 units Metoprolol Succinate (Toprol Xl) 25 mg PO BEDTIME [facility] Last Admin: 12/20/19 20:38 Dose: 25 mg Ondansetron HCl (Zofran) 4 mg IVPUSH Q4H PRN PRN Reason: Nausea Potassium Chloride (Klor-Con M20) 40 meq PO BID@0800,1200 [facility] Last Admin: 12/21/19 08:50 Dose: 40 meq Rosuvastatin Calcium (Crestor) 20 mg PO DAILY [facility] Last Admin: 12/21/19 08:55 Dose: 20 mg Sodium Chloride (Saline Flush) 2.5 ml FLUSH ASDIRECTED PRN PRN Reason: Keep Vein Open Discontinued Medications Albuterol/Ipratropium (Duoneb 3.0-0.5 Mg/3 Ml) 3 ml NEB ONETIME ONE Stop: 12/19/19 11:40 Last Admin: 12/19/19 11:50 Dose: 3 ml Furosemide (Lasix) 40 mg IVPUSH NOW ONE Stop: 12/19/19 13:26 Last Admin: 12/19/19 14:21 Dose: 40 mg Magnesium Sulfate 2 gm/ Premix 50 mls @ 50 mls/hr IV ONETIME ONE Stop: 12/19/19 13:14 Last Admin: 12/19/19 12:13 Dose: 50 mls/hr Methylprednisolone Sodium Succinate (Solu-Medrol) 125 mg IV ONETIME ONE Stop: 12/19/19 11:40 Last Admin: 12/19/19 12:13 Dose: 125 mg Metoprolol Tartrate (Lopressor) 25 mg PO ONETIME ONE Stop: 12/21/19 08:03 Last Admin: 12/21/19 11:25 Dose: 25 mg - Exam General: Alert, Oriented, Mild Distress (delirium) Lungs: Clear to Auscultation. No: Normal Respiratory Effort (dyspnea with agitation) Cardiovascular: Regular Rate, Regular Rhythm GI/Abdominal Exam: Normal Bowel Sounds, Soft, Non-Tender Extremities: Normal Inspection, Normal Range of Motion, Pedal Edema (+3 extending from hips to feet, improving slowly) Neurological: No New Focal Deficit Psy/Mental Status: Alert, Normal Affect, Normal Mood Sepsis Event Note - Evaluation Sepsis Screening Result: No Definite Risk - Focused Exam Vital Signs: Vital Signs Temp Pulse Pulse Resp BP BP Pulse Ox 12/21/19 11:25 112 H 119/75 12/21/19 08:00 97.3 F 113 H 18 94/60 95 12/21/19 04:00 97.9 F 114 H 18 134/86 98 12/21/19 03:30 97.9 F 114 H 18 134/86 98 Date Exam was Performed: 12/21/19 Time Exam was Performed: 13:18 - Problem List & Annotations (1) Acute and chronic respiratory failure with hypoxia SNOMED Code(s): 74092730, 269567851 Code(s): J96.21 - ACUTE AND CHRONIC RESPIRATORY FAILURE WITH HYPOXIA Status : Acute Current Visit: Yes (2) Diastolic heart failure SNOMED Code(s): 539061270 Code(s): I50.30 - UNSPECIFIED DIASTOLIC (CONGESTIVE) HEART FAILURE Status: Acute Current Visit: Yes Qualifiers: Heart failure chronicity: acute on chronic Qualified Code(s): I50.33 - Acute on chronic diastolic (congestive) heart failure (3) Aortic stenosis SNOMED Code(s): 56893666 Code(s): I35.0 - NONRHEUMATIC AORTIC (VALVE) STENOSIS Status: Chronic Current Visit: Yes Qualifiers: Cardiac valve disease etiology: etiology unspecified Qualified Code(s): I35.0 - Nonrheumatic aortic (valve) stenosis (4) GERD (gastroesophageal reflux disease) SNOMED Code(s): 247060839 Code(s): K21.9 - GASTRO-ESOPHAGEAL REFLUX DISEASE WITHOUT ESOPHAGITIS Status: Acute Current Visit: No (5) Parkinsons disease SNOMED Code(s): 48070160 Code(s): G20 - PARKINSON'S DISEASE Status: Acute Current Visit: No (6) Oxygen dependent SNOMED Code(s): 178891248435 Code(s): Z99.81 - DEPENDENCE ON SUPPLEMENTAL OXYGEN Status: Chronic Current Visit: Yes (7) Anemia SNOMED Code(s): 956435789 Code(s): D64.9 - ANEMIA, UNSPECIFIED Status: Acute Current Visit: Yes (8) Delirium SNOMED Code(s): 0158320 Code(s): R41.0 - DISORIENTATION, UNSPECIFIED Status: Acute Current Visit : Yes - Problem List Review Problem List Initiated/Reviewed/Updated: Yes - My Orders Last 24 Hours: My Active Orders 12/20/19 13:30 Heparin Sodium 5,000 units SUBCUT Q12H 12/20/19 16:22 Consult to Physician [CONS] Stat 12/20/19 16:23 Notify Provider Consults [RC] ASDIRECTED 12/21/19 08:00 Potassium Chloride [Klor-Con M20] 40 meq PO BID@0800,1200 12/22/19 05:11 CBC WITH AUTO DIFF [HEME] AM COMPREHENSIVE METABOLIC PN,CMP [CHEM] AM MAGNESIUM [CHEM] AM PHOSPHORUS [CHEM] AM - Plan Plan:: THis 79 year old male admitted with acute on chronic hypoxic respiratory failure and CHF exacerbation 1. Acute CHF exacerbation, anasarca slow improvement, respiratory failure improved. - Lasix 40 mg TID - Strict I/0- hard to count due to incontinence. - Daily weights - Regular diet, patient very agitated regarding diet. Continue 2 L FR - ECHO 1 mo ago, EF 55%, aortic stenosis, pulmonary hypertension and diastolic dysfunction - Continue Metoprolol - Telemetry - Ambulation limited by dyspnea. Will continue to monitor this. 2. Afib - New onset, increased Metoprolol by 25 mg today - HR remains 110s. - Discussed anticoagulation with family, both myself and Dr Stewart in depth. they are wanting us to decided. Currently we will start Xarelto for daily dosing and monitor for bleeding. Will be able to follow up with PCP and discuss further. 3. COPD - Stable - Duonebs scheduled - Monitor 4. Hx DVT/PE? - Noted in [place] paperwork, no anticoagulation started or dc home on. - Doppler negative for DVT. 5. Anemia - Stable, obtain Hemoccult 6. Parkinson's - Having acute delirium now likely secondary to environment change and limited sleep. Monitor. 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 Likely has vascular dementia due to recent behavior changes since intubation and respiratory failure 1 month ago 7. BPH: - Continue Proscar - UA negative. VTE prophylaxis: Xarelto Code status: DNR/DNI per daughter/ and Living will in chart. Dispo: 2 days
[2019-12-21] MEDS: Rivaroxaban 15 MG Tab PO SCH (18:14)
[2019-12-21] MEDS: Metoprolol Succinate 25 MG Tab.ER PO SCH (21:31)
[2019-12-22] MEDS: Albuterol/Ipratropium 3.0-0.5 MG/3 ML Neb Soln NEB SCH ×5 (02:46→17:25)
[2019-12-22] MEDS: Furosemide 40 MG/4 ML VIAL IVPUSH SCH (06:04)
[2019-12-22 07:31] LABS: CARBON DIOXIDE,CO2 32.6 mmol/L (21.0-32.0); POTASSIUM,K 3.1 mmol/L (3.5-5.1)
[2019-12-22] MEDS: Potassium Chloride 20 MEQ Tab.ER PO SCH ×2 (09:00→13:36)
[2019-12-22] MEDS: Carbidopa/Levodopa 50-200 MG Tab.ER PO SCH ×2 (09:01→21:07)
[2019-12-22] MEDS: Rosuvastatin 10 MG Tab PO SCH (09:01)
[2019-12-22] MEDS: Finasteride 5 MG Tab PO SCH (09:01)
[2019-12-22] MEDS: Fludrocortisone 0.1 MG Tab PO SCH (09:12)
--- NOTE | 2019-12-22 12:18 | PCM.PN ---
- General Info Date of Service: 12/22/19 Admission Dx/Problem (Free Text): Admission Diagnosis/Problem Admission Diagnosis/Problem Dyspnea related to CHF exacerbation Subjective Update: Clear today, no chest pain. SOB intermittent but improved. Swelling to legs is better. Functional Status: Reports: Pain Controlled, Tolerating Diet, Ambulating, Urinating - Review of Systems Pulmonary: Reports: Shortness of Breath. Denies: Cough, Sputum Cardiovascular: Reports: Dyspnea on Exertion, Edema. Denies: Chest Pain Gastrointestinal: Reports: No Symptoms. Denies: Abdominal Pain, Nausea, Vomiting Genitourinary: Reports: No Symptoms. Denies: Dysuria, Frequency, Burning Musculoskeletal: Reports: No Symptoms Skin: Reports: No Symptoms Neurological: Reports: No Symptoms Psychiatric: Reports: No Symptoms - Patient Data Vitals - Most Recent: Last Vital Signs Temp 98.8 F 12/22/19 08:00 Pulse 93 12/22/19 08:00 Resp 20 12/22/19 08:00 BP 114/69 12/22/19 08:00 Pulse Ox 97 12/22/19 08:00 Weight - Most Recent: 82.4 kg I&O - Last 24 Hours: Intake & Output 12/21/19 12/22/19 12/22/19 22:59 06:59 14:59 Intake Total 1150 720 Output Total 1440 1180 Balance -290 -460 Lab Results Last 24 Hours: Laboratory Results - last 24 hr 12/22/19 12/22/19 Range/Units 06:52 06:52 WBC 2.85 L (4.0-11.0) K/uL RBC 2.87 L (4.50-5.90) M/uL Hgb 8.5 L (13.0-17.0) g/dL Hct 26.7 L (38.0-50.0) % MCV 93.0 (80.0-98.0) fL MCH 29.6 (27.0-32.0) pg MCHC 31.8 (31.0-37.0) g/dL RDW Std Deviation 59.9 (28.0-62.0) fl RDW Coeff of Sonya 18 H (11.0-15.0) % Plt Count 136 L (150-400) K/uL MPV 8.90 (7.40-12.00) fL Neut % (Auto) 66.3 (48.0-80.0) % Lymph % (Auto) 23.2 (16.0-40.0) % [place] % (Auto) 7.7 (0.0-15.0) % Eos % (Auto) 2.8 (0.0-7.0) % Baso % (Auto) 0.0 (0.0-1.5) % Neut # (Auto) 1.9 (1.4-5.7) K/uL Lymph # (Auto) 0.7 (0.6-2.4) K/uL [place] # (Auto) 0.2 (0.0-0.8) K/uL Eos # (Auto) 0.1 (0.0-0.7) K/uL Baso # (Auto) 0.0 (0.0-0.1) K/uL Nucleated RBC % 0.0 /100WBC Nucleated RBCs # 0 K/uL Sodium 137 (136-148) mmol/L Potassium 3.1 L (3.5-5.1) mmol/L Chloride 98 (98-107) mmol/L Carbon Dioxide 32.6 H (21.0-32.0) mmol/L BUN 39 H (7.0-18.0) mg/dL Creatinine 1.9 H (0.8-1.3) mg/dL Est Cr Clr Drug Dosing 34.60 mL/min Estimated GFR (MDRD) 34.4 ml/min Glucose 123 H (74-106) mg/dL Calcium 8.1 L (8.5-10.1) mg/dL Phosphorus 3.0 (2.6-4.7) mg/dL Magnesium 2.1 (1.8-2.4) mg/dL Total Bilirubin 0.8 (0.2-1.0) mg/dL AST 31 (15-37) IU/L ALT 15 (14-63) IU/L Alkaline Phosphatase 134 H (46-116) U/L Total Protein 7.7 (6.4-8.2) g/dL Albumin 2.7 L (3.4-5.0) g/dL Globulin 5.0 H (2.6-4.0) g/dL Albumin/Globulin Ratio 0.5 L (0.9-1.6) [place] Results Last 24 Hours: Microbiology 12/22/19 00:15 Stool Occult Blood (ELKIN) - Final Stool / Feces NEGATIVE OCCULT BLOOD REFERENCE RANGE: NEGATIVE Med Orders - Current: Current Medications Acetaminophen (Tylenol) 650 mg PO Q4H PRN PRN Reason: Pain (Mild 1-3)/fever Last Admin: 12/22/19 03:19 Dose: 650 mg Albuterol/Ipratropium (Duoneb 3.0-0.5 Mg/3 Ml) 3 ml NEB Q4HRRT [facility] Last Admin: 12/22/19 09:27 Dose: 3 ml Carbidopa/Levodopa (Sinemet Cr 50-200 Mg) 1 tab PO BID [facility] Last Admin: 12/22/19 09:01 Dose: 1 tab Finasteride (Proscar) 5 mg PO DAILY [facility] Last Admin: 12/22/19 09:01 Dose: 5 mg Fludrocortisone Acetate (Florinef) 0.05 mg PO DAILY [facility] Last Admin: 12/22/19 09:12 Dose: 0.05 mg Furosemide (Lasix) 40 mg PO BIDDIURETIC [facility] Metoprolol Succinate (Toprol Xl) 50 mg PO BEDTIME [facility] Last Admin: 12/21/19 21:31 Dose: 50 mg Ondansetron HCl (Zofran) 4 mg IVPUSH Q4H PRN PRN Reason: Nausea Potassium Chloride (Klor-Con M20) 40 meq PO BID@0800,1200 [facility] Last Admin: 12/22/19 09:00 Dose: 40 meq Rivaroxaban (Xarelto) 15 mg PO WITHDINNER [facility] Last Admin: 12/21/19 18:14 Dose: 15 mg Rosuvastatin Calcium (Crestor) 20 mg PO DAILY [facility] Last Admin: 12/22/19 09:01 Dose: 20 mg Sodium Chloride (Saline Flush) 2.5 ml FLUSH ASDIRECTED PRN PRN Reason: Keep Vein Open Discontinued Medications Albuterol/Ipratropium (Duoneb 3.0-0.5 Mg/3 Ml) 3 ml NEB ONETIME ONE Stop: 12/19/19 11:40 Last Admin: 12/19/19 11:50 Dose: 3 ml Furosemide (Lasix) 40 mg IVPUSH NOW ONE Stop: 12/19/19 13:26 Last Admin: 12/19/19 14:21 Dose: 40 mg Furosemide (Lasix) 40 mg IVPUSH TID [facility] Last Admin: 12/22/19 06:04 Dose: 40 mg Heparin Sodium (Porcine) (Heparin Sodium) 5,000 units SUBCUT Q12H [facility] Last Admin: 12/21/19 12:36 Dose: 5,000 units Magnesium Sulfate 2 gm/ Premix 50 mls @ 50 mls/hr IV ONETIME ONE Stop: 12/19/19 13:14 Last Admin: 12/19/19 12:13 Dose: 50 mls/hr Methylprednisolone Sodium Succinate (Solu-Medrol) 125 mg IV ONETIME ONE Stop: 12/19/19 11:40 Last Admin: 12/19/19 12:13 Dose: 125 mg Metoprolol Succinate (Toprol Xl) 25 mg PO BEDTIME [facility] Last Admin: 12/20/19 20:38 Dose: 25 mg Metoprolol Tartrate (Lopressor) 25 mg PO ONETIME ONE Stop: 12/21/19 08:03 Last Admin: 12/21/19 11:25 Dose: 25 mg - Exam General: Alert, Oriented, Cooperative, No Acute Distress Lungs: Clear to Auscultation, Normal Respiratory Effort Cardiovascular: Regular Rate, Irregular Rhythm GI/Abdominal Exam: Normal Bowel Sounds, Soft, Non-Tender Extremities: Normal Inspection, Normal Range of Motion, Non-Tender, Pedal Edema (+3 pitting to BLE) Neurological: No New Focal Deficit Psy/Mental Status: Alert, Normal Affect, Normal Mood Sepsis Event Note - Evaluation Sepsis Screening Result: No Definite Risk - Focused Exam Vital Signs: Vital Signs Temp Pulse Resp BP Pulse Ox 12/22/19 08:00 98.8 F 93 20 114/69 97 12/22/19 03:12 98.6 F 114 H 20 106/61 92 L Date Exam was Performed: 12/22/19 Time Exam was Performed: 13:14 - Problem List & Annotations (1) Acute and chronic respiratory failure with hypoxia SNOMED Code(s): 15615207, 926500885 Code(s): J96.21 - ACUTE AND CHRONIC RESPIRATORY FAILURE WITH HYPOXIA Status : Acute Current Visit: Yes (2) Diastolic heart failure SNOMED Code(s): 952492617 Code(s): I50.30 - UNSPECIFIED DIASTOLIC (CONGESTIVE) HEART FAILURE Status: Acute Current Visit: Yes Qualifiers: Heart failure chronicity: acute on chronic Qualified Code(s): I50.33 - Acute on chronic diastolic (congestive) heart failure (3) Aortic stenosis SNOMED Code(s): 84583967 Code(s): I35.0 - NONRHEUMATIC AORTIC (VALVE) STENOSIS Status: Chronic Current Visit: Yes Qualifiers: Cardiac valve disease etiology: etiology unspecified Qualified Code(s): I35.0 - Nonrheumatic aortic (valve) stenosis (4) GERD (gastroesophageal reflux disease) SNOMED Code(s): 029689714 Code(s): K21.9 - GASTRO-ESOPHAGEAL REFLUX DISEASE WITHOUT ESOPHAGITIS Status: Acute Current Visit: No (5) Parkinsons disease SNOMED Code(s): 88590017 Code(s): G20 - PARKINSON'S DISEASE Status: Acute Current Visit: No (6) Oxygen dependent SNOMED Code(s): 113451339798 Code(s): Z99.81 - DEPENDENCE ON SUPPLEMENTAL OXYGEN Status: Chronic Current Visit: Yes (7) Anemia SNOMED Code(s): 318255048 Code(s): D64.9 - ANEMIA, UNSPECIFIED Status: Acute Current Visit: Yes (8) Delirium SNOMED Code(s): 8603407 Code(s): R41.0 - DISORIENTATION, UNSPECIFIED Status: Acute Current Visit : Yes - Problem List Review Problem List Initiated/Reviewed/Updated: Yes - My Orders Last 24 Hours: My Active Orders 12/21/19 17:30 Rivaroxaban [Xarelto] 15 mg PO WITHDINNER 12/21/19 21:00 Metoprolol Succinate [Toprol XL] 50 mg PO BEDTIME 12/22/19 14:00 Furosemide [Lasix] 40 mg PO BIDDIURETIC - Plan Plan:: THis 79 year old male admitted with acute on chronic hypoxic respiratory failure and CHF exacerbation 1. Acute CHF exacerbation, anasarca slow improvement, respiratory failure improved. - Lasix 40 mg PO BID, bicarb increasing like reached max diuresis. - Strict I/0 - Daily weights - Regular diet, patient very agitated regarding diet. Continue 2 L FR - ECHO 1 mo ago, EF 55%, aortic stenosis, pulmonary hypertension and diastolic dysfunction - Continue Metoprolol 50 mg XL daily, HR improved 90s. - Telemetry - Ambulation limited by dyspnea. Will continue to monitor this. 2. Afib - New onset - Metoprolol XL 50 mg - HR improved to 90s, remains Afib. - Xarelto started 3. COPD - Stable - Duonebs scheduled - Monitor 4. Anemia - Stable - No overt bleeding 5. Parkinson's - Delirium improved, but worsens at night. now likely secondary to environment change and limited sleep. Monitor. 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 Likely has vascular dementia due to recent behavior changes since intubation and respiratory failure 1 month ago 6. BPH: - Continue Proscar - UA negative. VTE prophylaxis: Xarelto Code status: DNR/DNI per daughter/ and Living will in chart. Dispo: likely in am Had long discussion today with Carrie regarding poor prognosis due to comorbidities. Dr Ornelas spoke with her and Sagar last evening and recommended Hospice. Sagar mentioned it to Carrie last night. When discussed with Sagar he was very adamant he is not happy how his quality of life is and was upset with the intubation that occured last month. He is willing to discuss Hospice and feels his family just needs to be on board "I don't want them to think I don't want to be here with them, but I am tired of this". Spoke with Shante in Hospice , she will arrange family conference next week to discuss options. Will resume HH on discharge, likely Thursday.
[2019-12-22] MEDS: Furosemide 40 MG Tab PO SCH (13:36)
[2019-12-22] MEDS ORDERED: Carboxymethylcellulose Sodium 0.5% Ophth Soln 0.4 ML UD Box of 30 EYEBOTH PRN (15:29)
[2019-12-22] MEDS: Rivaroxaban 15 MG Tab PO SCH (17:30)
[2019-12-22] MEDS ORDERED: Albuterol/Ipratropium 3.0-0.5 MG/3 ML Neb Soln NEB PRN (17:32)
[2019-12-22] MEDS: Metoprolol Succinate 25 MG Tab.ER PO SCH (21:07)
[2019-12-23 07:25] LABS: CARBON DIOXIDE,CO2 32.8 mmol/L (21.0-32.0); POTASSIUM,K 3.4 mmol/L (3.5-5.1)
[2019-12-23] MEDS: Rosuvastatin 10 MG Tab PO SCH (08:14)
[2019-12-23] MEDS: Finasteride 5 MG Tab PO SCH (08:14)
[2019-12-23] MEDS: Furosemide 40 MG Tab PO SCH (08:14)
[2019-12-23] MEDS: Fludrocortisone 0.1 MG Tab PO SCH (08:14)
[2019-12-23] MEDS: Potassium Chloride 20 MEQ Tab.ER PO SCH (08:14)
[2019-12-23] MEDS: Carbidopa/Levodopa 50-200 MG Tab.ER PO SCH (08:15)
--- NOTE | 2019-12-23 10:49 | PCM.DCSUM1 ---
Discharge Summary - Hospital Course Brief History: This 79 year old male with pmh diastolic CHF, aortic stenosis, COPD, CAD, BPH GERD, HTN, and parkinson's disease presented to the ED with complaints of worsening dyspnea over the last 3-4 days. Today the Home Health nurse was by and he was unable to get up from his chair. He was noted to have 10 lb weight gain over the weekend and he feels like his legs are very swollen. He is very poor historian. He denies overt chest pain. Reports shortness of breath is intermittent worse when lying flat and worse with activity. He feels he has been going down hill the last few days. He reports his weight was 187 lbs and normally runs close to 170. Records were reviewed from [place] admission 1 month ago, he was intubated in [place] ED and transferred to [place]. He was intubated for 3 days, then slowly improved. ECHO at that time showed EF 55% with grade 2 diastolic dysfunction, no segmental wall abnormalities, moderate aortic stenosis valve stenosis. Doppler of lower extremities showed "non compressible left common femoral vein and proximal superficial femoral vein, no definite thrombus is seen and Doppler signal was normal" CTA of chest revealed "pulmonary emboli in the right lower lobe, pulmonary artery hypertension with right heart strain, felt this was related to chronic airspace disease vs PEs. He was transitioned to Lasix 40 BID and sent to rehab facility. He has been doing well at home with home health to help manage medications. I spoke with daughter Carrie. She is talking with , Pascale, as she is [facility]. She reports he has become agitated and very concerned with his breathing the last couple days. He is reporting more shortness of breath than normal. They have not noticed any bleeding or black stools. No active bleeding noted. He is very fixated on his medications as well. Recently, Dr Ornelas decreased Metoprolol to 25 XL daily, added Metalozone 2.5 MWF and increased Potassium. In the ED no leukocytosis noted, hgb 8.8, platelet count 130, D dimer 1.05. Na 131, Cl 93, BUN 34, Cr 2.0 , Bili 1.5, troponin negative BNP 1128, CXR shows increase interstitial markings which are stable. He was given Solumedrol, Duoneb and Magnesium in the ED. At home O2 sats on 2 L was noted to be in the 80s. He does wear 2 L NC at home at all times. Admitted inpatient for concerns of acute on chronic hypoxic respiratory failure, COPD and CHF exacerbation. PCP, Dr Ornelas - Discharge Data Discharge Date: 12/23/19 Discharge Disposition: DC/Tfer to Hospice - Home 50 Condition: Fair - Referral to Home Health Primary Care Physician: Mehran Ornelas MD - Discharge Diagnosis/Problem(s) (1) Acute and chronic respiratory failure with hypoxia SNOMED Code(s): 08255060, 526664401 ICD Code: J96.21 - ACUTE AND CHRONIC RESPIRATORY FAILURE WITH HYPOXIA Status: Acute Current Visit: Yes (2) Diastolic heart failure SNOMED Code(s): 884700995 ICD Code: I50.30 - UNSPECIFIED DIASTOLIC (CONGESTIVE) HEART FAILURE Status : Acute Current Visit: Yes Qualifiers: Heart failure chronicity: acute on chronic Qualified Code(s): I50.33 - Acute on chronic diastolic (congestive) heart failure (3) Aortic stenosis SNOMED Code(s): 48133643 ICD Code: I35.0 - NONRHEUMATIC AORTIC (VALVE) STENOSIS Status: Chronic Current Visit: Yes Qualifiers: Cardiac valve disease etiology: etiology unspecified Qualified Code(s): I35.0 - Nonrheumatic aortic (valve) stenosis (4) GERD (gastroesophageal reflux disease) SNOMED Code(s): 298846427 ICD Code: K21.9 - GASTRO-ESOPHAGEAL REFLUX DISEASE WITHOUT ESOPHAGITIS Status: Acute Current Visit: No (5) Parkinsons disease SNOMED Code(s): 05871000 ICD Code: G20 - PARKINSON'S DISEASE Status: Acute Current Visit: No (6) Oxygen dependent SNOMED Code(s): 588551241392 ICD Code: Z99.81 - DEPENDENCE ON SUPPLEMENTAL OXYGEN Status: Chronic Current Visit: Yes (7) Anemia SNOMED Code(s): 745113052 ICD Code: D64.9 - ANEMIA, UNSPECIFIED Status: Acute Current Visit: Yes (8) Delirium SNOMED Code(s): 7817354 ICD Code: R41.0 - DISORIENTATION, UNSPECIFIED Status: Acute Current Visit : Yes - Patient Summary/Data Consults: Consultations 12/19/19 14:23 PT Evaluation and Treatment [CONS] Routine 12/20/19 16:22 Consult to Physician [CONS] Stat 12/22/19 16:02 Consult to Hospice [CONS] Routine Hospital Course: Admitting Diagnoses: CHF exacerbation Discharge Diagnoses: CHF Afib Hospice care Other PMH: Aortic stenosis pulmonary hypertension COPD Oxygen dependent Parkinsons Vascular dementia Sagar was admitted secondary to CHF excaerbation with worsening anasarca and dyspnea. He was treated with agressive diuresis with Lasix 40 mg TID. we did achieve decent diuresis during admission. He was noted to be develop new onset afib. Xarelto was started. Dyspnea improved slightly, but Sagar became more and more agitated with hospital cares. In further talking with family, Sagar and PCP , Dr Ornelas. It was decided Hospice care would be the best next step as Sagar is not wanting to follow diet and doesn't want to have aggressive medical treatment. He and family have agreed to Hospice. Today Sagar will be discharge home today continuing all home medications at previous dosing. Xarelto will be discontinued as family was very unsure of this to start with. Dr Ornelas is aware. Hospice to work with family upon discharge. I spoke with Carrie, daughter and she is on board and everything will be ready at home. All questions and concerns addressed. - Patient Instructions Diet: Regular Diet as Tolerated Activity: As Tolerated, Rest and Relax Today Driving: Do Not Drive Showering/Bathing: May Shower Notify Provider of: Fever, Increased Pain, Swelling and Redness, Drainage, Nausea and/or Vomiting Other/Special Instructions: Hospice to admit at home. - Discharge Plan *PRESCRIPTION DRUG MONITORING PROGRAM REVIEWED*: Not Applicable *COPY OF PRESCRIPTION DRUG MONITORING REPORT IN PATIENT ROSITA: Not Applicable Home Medications: Home Meds Finasteride 5 mg PO DAILY 04/23/19 [History] Fludrocortisone [Florinef] 0.05 mg PO DAILY 04/23/19 [History] Metoprolol Succinate [Toprol XL 50mg] 50 mg PO BEDTIME 04/23/19 [History] Rosuvastatin [Crestor] 20 mg PO DAILY 04/23/19 [History] Albuterol [Ventolin HFA] 2 puff INH ASDIRECTED PRN 09/07/19 [History] Aspirin [Low Dose Aspirin EC] 81 mg PO DAILY 09/07/19 [History] Carbidopa/Levodopa [Carbidopa-Levo ER 50-200] 50 - 200 mg PO BID 09/07/19 [ History] Nitroglycerin 1 tab SL ASDIRECTED PRN 09/07/19 [History] Pantoprazole Sodium [Protonix] 20 mg PO DAILY 12/19/19 [History] Furosemide 40 mg PO BID #0 12/23/19 [Rx] Metoprolol Succinate [Toprol XL] 50 mg PO BEDTIME tab.er 12/23/19 [Rx] Potassium Chloride [Klor-Con M20] 20 meq PO BID #0 12/23/19 [Rx] Oxygen Therapy Mode: Nasal Cannula Oxygen Flow Rate (L/min): 2 Patient Handouts: Heart-Healthy Eating Plan, [id number], Heart Failure, Easy- to-Read, Hospice Referrals: Mehran Ornelas MD [Primary Care Provider] - 01/03/20 11:15 am - Discharge Summary/Plan Comment DC Time >30 min.: Yes (arranging DC with family and Hospice) - Patient Data Vitals - Most Recent: Last Vital Signs Temp 98.5 F 12/23/19 08:27 Pulse 83 12/23/19 08:27 Resp 19 12/23/19 08:27 BP 128/62 12/23/19 08:27 Pulse Ox 95 12/23/19 08:27 Weight - Most Recent: 83.325 kg I&O - Last 24 hours: Intake & Output 12/22/19 12/23/19 12/23/19 22:59 06:59 14:59 Intake Total 1000 800 Output Total 825 360 Balance 175 440 Lab Results - Last 24 hrs: Laboratory Results - last 24 hr 12/23/19 12/23/19 Range/Units 06:33 06:33 Hgb 8.8 L (13.0-17.0) g/dL Hct 28.5 L (38.0-50.0) % Sodium 137 (136-148) mmol/L Potassium 3.4 L (3.5-5.1) mmol/L Chloride 99 (98-107) mmol/L Carbon Dioxide 32.8 H (21.0-32.0) mmol/L BUN 35 H (7.0-18.0) mg/dL Creatinine 1.6 H (0.8-1.3) mg/dL Est Cr Clr Drug Dosing 41.09 mL/min Estimated GFR (MDRD) 41.9 ml/min Glucose 108 H (74-106) mg/dL Calcium 8.4 L (8.5-10.1) mg/dL Magnesium 2.1 (1.8-2.4) mg/dL Med Orders - Current: Current Medications Acetaminophen (Tylenol) 650 mg PO Q4H PRN PRN Reason: Pain (Mild 1-3)/fever Last Admin: 12/22/19 03:19 Dose: 650 mg Albuterol/Ipratropium (Duoneb 3.0-0.5 Mg/3 Ml) 3 ml NEB Q4HRRT PRN PRN Reason: Shortness of Breath Artificial Tears (Refresh Plus 0.5%) 1 each EYEBOTH Q4HR PRN PRN Reason: Dry Eyes Last Admin: 12/23/19 00:07 Dose: 1 each Carbidopa/Levodopa (Sinemet Cr 50-200 Mg) 1 tab PO BID [facility] Last Admin: 12/23/19 08:15 Dose: 1 tab Finasteride (Proscar) 5 mg PO DAILY [facility] Last Admin: 12/23/19 08:14 Dose: 5 mg Fludrocortisone Acetate (Florinef) 0.05 mg PO DAILY [facility] Last Admin: 12/23/19 08:14 Dose: 0.05 mg Furosemide (Lasix) 40 mg PO BIDDIURETIC [facility] Last Admin: 12/23/19 08:14 Dose: 40 mg Metoprolol Succinate (Toprol Xl) 50 mg PO BEDTIME [facility] Last Admin: 12/22/19 21:07 Dose: 50 mg Ondansetron HCl (Zofran) 4 mg IVPUSH Q4H PRN PRN Reason: Nausea Potassium Chloride (Klor-Con M20) 40 meq PO BID@0800,1200 [facility] Last Admin: 12/23/19 08:14 Dose: 40 meq Rivaroxaban (Xarelto) 15 mg PO WITHDINNER [facility] Last Admin: 12/22/19 17:30 Dose: 15 mg Rosuvastatin Calcium (Crestor) 20 mg PO DAILY [facility] Last Admin: 12/23/19 08:14 Dose: 20 mg Sodium Chloride (Saline Flush) 2.5 ml FLUSH ASDIRECTED PRN PRN Reason: Keep Vein Open Discontinued Medications Albuterol/Ipratropium (Duoneb 3.0-0.5 Mg/3 Ml) 3 ml NEB ONETIME ONE Stop: 12/19/19 11:40 Last Admin: 12/19/19 11:50 Dose: 3 ml Albuterol/Ipratropium (Duoneb 3.0-0.5 Mg/3 Ml) 3 ml NEB Q4HRRT [facility] Last Admin: 12/22/19 17:25 Dose: 3 ml Furosemide (Lasix) 40 mg IVPUSH NOW ONE Stop: 12/19/19 13:26 Last Admin: 12/19/19 14:21 Dose: 40 mg Furosemide (Lasix) 40 mg IVPUSH TID [facility] Last Admin: 12/22/19 06:04 Dose: 40 mg Heparin Sodium (Porcine) (Heparin Sodium) 5,000 units SUBCUT Q12H [facility] Last Admin: 12/21/19 12:36 Dose: 5,000 units Magnesium Sulfate 2 gm/ Premix 50 mls @ 50 mls/hr IV ONETIME ONE Stop: 12/19/19 13:14 Last Admin: 12/19/19 12:13 Dose: 50 mls/hr Methylprednisolone Sodium Succinate (Solu-Medrol) 125 mg IV ONETIME ONE Stop: 12/19/19 11:40 Last Admin: 12/19/19 12:13 Dose: 125 mg Metoprolol Succinate (Toprol Xl) 25 mg PO BEDTIME [facility] Last Admin: 12/20/19 20:38 Dose: 25 mg Metoprolol Tartrate (Lopressor) 25 mg PO ONETIME ONE Stop: 12/21/19 08:03 Last Admin: 12/21/19 11:25 Dose: 25 mg - Exam General: Reports: Alert, Oriented, Cooperative, No Acute Distress Lungs: Reports: Clear to Auscultation, Normal Respiratory Effort Cardiovascular: Reports: Regular Rate, Irregular Rhythm, Murmurs GI/Abdominal Exam: Normal Bowel Sounds, Soft, Non-Tender Extremities: Normal Inspection, Normal Range of Motion, Pedal Edema Skin: Reports: Warm, Dry Neurological: Reports: No New Focal Deficit Psy/Mental Status: Reports: Alert, Normal Affect, Normal Mood
[2019-12-23 12:44] VITALS: BP 127/69; PULSE 98
== END 2019-12-23 13:40 | disposition hospice, home (50) | DRG 291 ==
LOC: MW.ED 11:28 → MW.MS 13:44 → OBSVTOIN 12-20 09:26
PROVIDERS: ADMIT Student in an Organized Health Care Education/Training Program; ATTEND Student in an Organized Health Care Education/Training Program
DX: I11.0 Hypertensive heart disease with heart failure (principal); J96.21 Acute and chronic respiratory failure with hypoxia; I50.33 Acute on chronic diastolic (congestive) heart failure; I35.0 Nonrheumatic aortic (valve) stenosis; Z66 Do not resuscitate; Z51.5 Encounter for palliative care; R06.02 Shortness of breath; J44.9 Chronic obstructive pulmonary disease, unspecified; D64.9 Anemia, unspecified; R41.0 Disorientation, unspecified; I48.91 Unspecified atrial fibrillation; F01.50 Vascular dementia, unspecified severity, without behavioral disturbance, psychotic disturbance, mood disturbance, and anxiety; F02.80 Dementia in other diseases classified elsewhere, unspecified severity, without behavioral disturbance, psychotic disturbance, mood disturbance, and anxiety; K21.9 Gastro-esophageal reflux disease without esophagitis; I25.10 Atherosclerotic heart disease of native coronary artery without angina pectoris; I10 Essential (primary) hypertension; E78.00 Pure hypercholesterolemia, unspecified; I73.9 Peripheral vascular disease, unspecified; N40.0 Benign prostatic hyperplasia without lower urinary tract symptoms; M19.90 Unspecified osteoarthritis, unspecified site; G89.29 Other chronic pain; M54.9 Dorsalgia, unspecified; M10.9 Gout, unspecified; G20 Parkinson's disease; Z98.49 Cataract extraction status, unspecified eye; Z79.82 Long term (current) use of aspirin; Z99.81 Dependence on supplemental oxygen; Z79.899 Other long term (current) drug therapy
CPT/HCPCS: 36415 ×2; 71045; 80053 ×2; 81001; 83605; 83735; 83880; 84100; 84484; 85025 ×2; 85379; 93005; 93970; 94640 ×4; 96365; 96375; 99285; A9270 ×6; J1940 ×3; J2930; J3475; U0002; 36410; 70450; 70450-26; 80048; 82272; 85014; 85018; 96372; 97161-GP; 99284; G0378; J1644; J7620-GY